=== PATIENT | female | born 1950 | race Caucasian/White ===

== ENCOUNTER 2017-10-05 11:39 | Day surgery (SDC) | payer OTHER ==
[~2017-10-05] VITALS: Ht 167.6 cm; Wt 63.1 kg
[~2017-10-05 11:39] MED LIST: ALBIPROI; ALBIPROI INH; ALBU3IS INH; ALBU90OI INH; ALBU90OI61 INH; ASPI81CH PO; ATEN25; ATEN25 PO; ATEN50; ATEN50 PO; AZIT100SU PO; AZIT250 PO; BACL10 PO; BELPTAB; BENZ100A; BENZ100A PO; BUSP5 PO; CALCA500CH PO; CALCAVITDA PO; CALCIUM 1500 MG PO; CEFP200 PO; CHOL10002 PO; CLAR500 PO; CLARITIN10 MG PO; CLOP75; CONEST1.25; COPEGUS; CYCL10; CYCL10 PO; DOCU100 PO; DULO30 PO; DULO60 PO; Daily Multiple1 EACH PO; ESTEST.625 PO; ESTMETHS PO; ESTR.75; FAMO20 PO; FERROUS SULFATE; FEXPSEER PO; FLUC150A PO; FLUO10 PO; FLUO20; FLUO20 PO; GABA300; GABA300 PO; GABA600 PO; GUAI600T33 PO; GUAPHELA PO; HYDGUAL120; HYDGUAL120 PO; HYDHCL25 PO; HYDMOR2; HYDMOR2 PO; Ipratr-Albuterol3 ML IH; LACT10SY PO; LEVFLO500; LEVFLO500 PO; LOPE2C PO; LORA1; LORA10ER PO; MEGE40SU PO; METCAR500 PO; METPRE4DP PO; MIRT15 PO; MONT10T; MONT10T PO; MONT4 PO; MORP15ER PO; NITRSPRAY SL; Nitrostat0.4 MG SL; OMEP20ER; OMEP20ER PO; OMEP40CA12 PO; ONDA4 PO; ONDA8 PO; OXYACE7.5T PO; OXYC10ER; OXYC5; PARO30 PO; PEGASYS; POLY17UD PO; PRED10 PO; PRED20; PRED20 PO; PROACE100; PROC25S PR; PROCODE120 PO; PROM25S PR; PROMETHAZINE 12.5 MG; PROP65; PSEHYDGUAL PO; PSYL5.85P PO; Pepcid20 MG PO; Prilosec Otc20 MG PO; Promethazine12.5 M1 PO; RANI150; RANI150 PO; RXHYDGUAS PO; RXHYDMOR2 PO; RXPROCODSY PO; SALM50IP INH; STIOLTO RESPIMAT4 GM INH; SUCR1 PO; SULTRIDS PO; THEO300ER; THEO300ERA; TIOT18 INH; TRAZ100; TRAZ100 PO; TRAZ150T57 PO; TRAZ50; URSO; URSO PO; URSO300; URSO300 PO; URSODIOL 250 MG; VARE1 PO; Vistaril50 MG PO; [UNRECOGNIZED DRUG - CODE]; [UNRECOGNIZED DRUG - CODE]; [UNRECOGNIZED DRUG - OTHER]; [UNRECOGNIZED DRUG - OTHER]; [UNRECOGNIZED DRUG - REMARK]; [UNRECOGNIZED DRUG - REMARK]
[2017-10-05] MEDS ORDERED: BACL10 PO (12:23)
[2017-10-05] MEDS ORDERED: PROM25S (12:24)
[2017-10-05] MEDS ORDERED: PROLIA60 MG/1 ML INJ (12:24)
[2017-10-05] MEDS ORDERED: ALBU3IS (12:24)
== END 2017-10-05 14:25 | disposition home or self-care (01) ==
LOC: ORSCSDS 11:39
PROVIDERS: Podiatrist
PROC: 0Y6Y0Z0 Detachment at Left 5th Toe, Complete, Open Approach (ICD-10-PCS; principal; 2017-10-05 13:00)
DX: M21.622 Bunionette of left foot (principal); I48.0 Paroxysmal atrial fibrillation; J44.9 Chronic obstructive pulmonary disease, unspecified; I50.30 Unspecified diastolic (congestive) heart failure; Z99.81 Dependence on supplemental oxygen; F17.210 Nicotine dependence, cigarettes, uncomplicated; G47.33 Obstructive sleep apnea (adult) (pediatric); Z79.82 Long term (current) use of aspirin; Z79.899 Other long term (current) drug therapy
CPT/HCPCS: J2250; J3010; J7120

== ENCOUNTER 2018-01-28 05:46 | Day surgery (SDC) | payer OTHER ==
[~2018-01-28] VITALS: Ht 165.1 cm; Wt 63.0 kg
[~2018-01-28 05:46] MED LIST changes: +ALBU3IS; +PROLIA60 MG/1 ML INJ; +PROM25S
== END 2018-01-28 11:40 | disposition home or self-care (01) ==
LOC: MHTC 05:46
PROC: B211YZZ Fluoroscopy of Multiple Coronary Arteries using Other Contrast (ICD-10-PCS; principal; 2018-01-28)
DX: I35.0 Nonrheumatic aortic (valve) stenosis (principal); Z95.2 Presence of prosthetic heart valve; F17.210 Nicotine dependence, cigarettes, uncomplicated; J44.9 Chronic obstructive pulmonary disease, unspecified; G47.30 Sleep apnea, unspecified
CPT/HCPCS: 93454; 99152; C1769; C1894; J1644; J2250; J3010; J7030; Q9967

== ENCOUNTER 2018-04-23 17:09 | Observation (INO) | payer OTHER ==
[~2018-04-23] VITALS: Ht 167.6 cm; Wt 60.7 kg
[2018-04-23 18:03] LABS: BASOPHILS ABSOLUTE AUTO 0.05 K/mm3 (0.00-0.23); BASOPHILS PERCENT AUTO 1 % (0-2); EOSINOPHILS ABSOLUTE AUTO 0.17 K/mm3 (0.00-0.68); EOSINOPHILS PERCENT AUTO 2 % (0-6); Hematocrit 31.5 % (33.0-51.0); Hemoglobin 10.6 g/dL (11.5-16.0); IMMATURE GRAN ABSOLUTE AUTO 0.04 K/mm3 (0.00-0.10); IMMATURE GRAN PERCENT AUTO 1 % (0-1); LYMPHOCYTES ABSOLUTE AUTO 0.75 K/mm3 (0.84-5.20); LYMPHOCYTES PERCENT AUTO 9 % (21-46); MONOCYTES ABSOLUTE AUTO 0.18 K/mm3 (0.16-1.47); MONOCYTES PERCENT AUTO 2 % (4-13); Mean Corpuscular HGB 22.6 pg (26.0-34.0); Mean Corpuscular HGB Conc 33.7 g/dL (31.5-36.5); Mean Corpuscular Volume 67 fL (80-100); Mean Platelet Volume 10.8 fL (9.1-12.4); NEUTROPHILS ABSOLUTE AUTO 6.78 K/mm3 (1.96-9.15); NEUTROPHILS PERCENT AUTO 85 % (41-73); Platelet Count 232 K/mm3 (150-400); RDW Coefficient Variation 14.6 % (11.7-14.2); RDW Standard Deviation 33.9 fL (35.1-46.3); Red Blood Cell Count 4.69 M/mm3 (3.80-5.20); White Blood Cell Count 7.97 K/mm3 (4.00-11.30)
[2018-04-23 18:15] LABS: Alanine Aminotransfer (ALT/SGP 20 U/L (12-78); Albumin, Blood 3.7 g/dL (3.4-5.0); Alk Phos 98 U/L (50-136); Anion Gap 7 mmol/L (6-16); Aspartate Aminotrans (AST/SGOT 23 U/L (12-37); Bilirubin, Total 1.1 mg/dL (0.1-1.0); Blood Urea Nitrogen 6 mg/dL (8-24); CO2, Blood 26 mmol/L (21-32); Chloride, Blood 97 mmol/L (98-108); Creatinine, Blood 0.46 mg/dL (0.40-1.00); Globulin, Blood 3.8 g/dL (2.2-4.0); Glomerular Filtration Rate >60 (60-); Glucose, Blood 109 mg/dL (70-99); Potassium, Blood 3.7 mmol/L (3.5-5.5); Sodium, Blood 130 mmol/L (136-145); Total Protein, Blood 7.5 g/dL (6.4-8.2); Troponin I 0.087 ng/mL (0.000-0.040)
[2018-04-23 20:42] LABS: International Normalized Ratio 1.08; Prothrombin Time Results 11.1 Sec (9.7-11.5)
[2018-04-24 06:17] LABS: Hematocrit 30.4 % (33.0-51.0); Hemoglobin 10.2 g/dL (11.5-16.0); Mean Corpuscular HGB 22.6 pg (26.0-34.0); Mean Corpuscular HGB Conc 33.6 g/dL (31.5-36.5); Mean Corpuscular Volume 67 fL (80-100); Mean Platelet Volume 10.6 fL (9.1-12.4); Platelet Count 205 K/mm3 (150-400); RDW Coefficient Variation 14.6 % (11.7-14.2); Red Blood Cell Count 4.52 M/mm3 (3.80-5.20); White Blood Cell Count 6.67 K/mm3 (4.00-11.30)
[2018-04-24 06:34] LABS: Anion Gap 7 mmol/L (6-16); Blood Urea Nitrogen 4 mg/dL (8-24); Bun/Creatinine Ratio 10.2 (12.0-20.0); CO2, Blood 28 mmol/L (21-32); Calcium, Blood 7.8 mg/dL (8.5-10.1); Chloride, Blood 99 mmol/L (98-108); Creatinine, Blood 0.39 mg/dL (0.40-1.00); Glomerular Filtration Rate >60 (60-); Glucose, Blood 107 mg/dL (70-99); Potassium, Blood 3.4 mmol/L (3.5-5.5); Sodium, Blood 134 mmol/L (136-145)
== END 2018-04-24 13:12 | disposition home or self-care (01) ==
LOC: ER 17:09 → PCU 19:22
PROVIDERS: Emergency Medicine; Nurse Practitioner Acute Care
DX: R07.9 Chest pain, unspecified (principal); I48.0 Paroxysmal atrial fibrillation; I35.0 Nonrheumatic aortic (valve) stenosis; K21.9 Gastro-esophageal reflux disease without esophagitis; I25.2 Old myocardial infarction; R79.89 Other specified abnormal findings of blood chemistry; J43.9 Emphysema, unspecified; M79.7 Fibromyalgia; G89.29 Other chronic pain; M54.9 Dorsalgia, unspecified; I27.20 Pulmonary hypertension, unspecified; M81.0 Age-related osteoporosis without current pathological fracture; J30.9 Allergic rhinitis, unspecified; D50.9 Iron deficiency anemia, unspecified; F32.9 Major depressive disorder, single episode, unspecified; F41.9 Anxiety disorder, unspecified; F17.210 Nicotine dependence, cigarettes, uncomplicated; Z79.82 Long term (current) use of aspirin; Z79.899 Other long term (current) drug therapy; Z99.81 Dependence on supplemental oxygen; Z86.19 Personal history of other infectious and parasitic diseases; Z88.0 Allergy status to penicillin; Z95.2 Presence of prosthetic heart valve; Z88.5 Allergy status to narcotic agent; Z88.8 Allergy status to other drugs, medicaments and biological substances; Z91.041 Radiographic dye allergy status
CPT/HCPCS: 36415; 71046; 80048; 80053; 84484; 85025; 85027; 85610; 93005; 93010; 94760; 96360; 99285-25; J1650; J7030

== ENCOUNTER → 2018-06-25 | Outpatient (CLI) | payer OTHER | END | disposition home or self-care (01) | LOC: LAB SHORT 12:04 → PLD 12:04 | DX: R23.4 Changes in skin texture (principal); M79.5 Residual foreign body in soft tissue | CPT/HCPCS: 88305; 88312 ==

== ENCOUNTER 2018-09-09 12:53 | Day surgery (SDC) | payer OTHER ==
[~2018-09-09] VITALS: Ht 165.1 cm; Wt 57.5 kg
[~2018-09-09 12:53] MED LIST changes: +Aspirin EC81 MG PO; +BACLOFEN5 MG PO; +CALCIUM + D3 E1 EACH PO; +CLOP75 PO; +COMBIVENT RESPIM4 GM INH; +Colace100 MG PO; +ONDA4ODT MM; +Omeprazole20 M1 PO; +Verotin-Gr Cap1 EACH PO
== END 2018-09-09 16:29 | disposition home or self-care (01) ==
LOC: ORSCSDS 12:53
PROVIDERS: Internal Medicine Gastroenterology
PROC: 0DB58ZX Excision of Esophagus, Via Natural or Artificial Opening Endoscopic, Diagnostic (ICD-10-PCS; principal; 2018-09-09 14:30)
PROC: 0DB68ZX Excision of Stomach, Via Natural or Artificial Opening Endoscopic, Diagnostic (ICD-10-PCS; principal; 2018-09-09 14:30)
DX: K22.70 Barrett's esophagus without dysplasia (principal); I10 Essential (primary) hypertension; K21.0 Gastro-esophageal reflux disease with esophagitis; J44.9 Chronic obstructive pulmonary disease, unspecified; F41.8 Other specified anxiety disorders; F17.210 Nicotine dependence, cigarettes, uncomplicated; Z79.01 Long term (current) use of anticoagulants; Z79.82 Long term (current) use of aspirin; Z79.899 Other long term (current) drug therapy
CPT/HCPCS: 88305; 88342; J3010; J7120

== ENCOUNTER 2018-10-25 10:52 | Emergency (ER) | payer OTHER ==
[~2018-10-25] VITALS: Ht 165.1 cm; Wt 56.7 kg
[2018-10-25] MEDS ORDERED: KETO10 PO (11:08)
== END 2018-10-25 11:11 | disposition home or self-care (01) ==
LOC: ER 10:52
DX: Z76.0 Encounter for issue of repeat prescription (principal); K62.3 Rectal prolapse; M19.019 Primary osteoarthritis, unspecified shoulder; J44.9 Chronic obstructive pulmonary disease, unspecified; F17.200 Nicotine dependence, unspecified, uncomplicated; Z88.0 Allergy status to penicillin; Z88.5 Allergy status to narcotic agent; Z88.1 Allergy status to other antibiotic agents; Z88.8 Allergy status to other drugs, medicaments and biological substances; Z79.899 Other long term (current) drug therapy; Z79.82 Long term (current) use of aspirin; Z79.02 Long term (current) use of antithrombotics/antiplatelets; Z99.81 Dependence on supplemental oxygen
CPT/HCPCS: 99281

== ENCOUNTER 2019-01-24 18:52 | Inpatient (IN) | payer OTHER ==
[~2019-01-24] VITALS: Ht 167.6 cm; Wt 63.4 kg
[~2019-01-24 18:52] MED LIST changes: -BACLOFEN5 MG PO; -CALCIUM + D3 E1 EACH PO; -Colace100 MG PO; +KETO10 PO; -Verotin-Gr Cap1 EACH PO
[2019-01-24 19:33] LABS: BASOPHILS ABSOLUTE AUTO 0.11 K/mm3 (0.00-0.23); BASOPHILS PERCENT AUTO 1 % (0-2); EOSINOPHILS ABSOLUTE AUTO 0.41 K/mm3 (0.00-0.68); EOSINOPHILS PERCENT AUTO 3 % (0-6); Hematocrit 34.3 % (33.0-51.0); Hemoglobin 11.4 g/dL (11.5-16.0); IMMATURE GRAN ABSOLUTE AUTO 0.06 K/mm3 (0.00-0.10); IMMATURE GRAN PERCENT AUTO 1 % (0-1); LYMPHOCYTES ABSOLUTE AUTO 2.33 K/mm3 (0.84-5.20); LYMPHOCYTES PERCENT AUTO 18 % (21-46); MONOCYTES ABSOLUTE AUTO 1.17 K/mm3 (0.16-1.47); MONOCYTES PERCENT AUTO 9 % (4-13); Mean Corpuscular HGB Conc 33.2 g/dL (31.5-36.5); Mean Corpuscular Volume 69 fL (80-100); Mean Platelet Volume 10.6 fL (9.1-12.4); NEUTROPHILS ABSOLUTE AUTO 8.75 K/mm3 (1.96-9.15); NEUTROPHILS PERCENT AUTO 68 % (41-73); NRBC ABSOLUTE 0.02 K/mm3 (0.00-0.02); NRBC Auto 0.2 /100 WBC (0.0-0.2); Platelet Count 272 K/mm3 (150-400); RDW Coefficient Variation 14.8 % (11.7-14.2); RDW Standard Deviation 35.3 fL (35.1-46.3); Red Blood Cell Count 4.95 M/mm3 (3.80-5.20); White Blood Cell Count 12.83 K/mm3 (4.00-11.30)
[2019-01-24 19:58] LABS: Alanine Aminotransfer (ALT/SGP 30 U/L (12-78); Albumin/Globulin Ratio 1.1 (0.8-1.8); Alk Phos 117 U/L (50-136); Anion Gap 6 mmol/L (6-16); Aspartate Aminotrans (AST/SGOT 39 U/L (12-37); Bilirubin, Total 0.6 mg/dL (0.1-1.0); Blood Urea Nitrogen 8 mg/dL (8-24); Bun/Creatinine Ratio 13.7 (12.0-20.0); CO2, Blood 26 mmol/L (21-32); Chloride, Blood 102 mmol/L (98-108); Creatinine, Blood 0.59 mg/dL (0.40-1.00); Globulin, Blood 3.6 g/dL (2.2-4.0); Glomerular Filtration Rate >60 (60-); Glucose, Blood 113 mg/dL (70-99); Potassium, Blood 4.3 mmol/L (3.5-5.5); Sodium, Blood 134 mmol/L (136-145); Total Protein, Blood 7.6 g/dL (6.4-8.2); Troponin I <0.015 ng/mL (0.000-0.040)
[2019-01-24] MEDS ORDERED: GABA600 PO (20:10)
[2019-01-24] MEDS ORDERED: Loratadine10 MG PO (20:11)
[2019-01-24] MEDS ORDERED: Verotin-Gr Cap1 EACH PO (20:28)
[2019-01-24] MEDS ORDERED: Colace100 MG PO (20:28)
[2019-01-24] MEDS ORDERED: Calcium + Vita1 EACH PO (20:29)
--- NOTE | 2019-01-24 22:50 | NUR ---
RECEIVED HAND OFF FROM Steffen EUGENE RN USING SBAR. TRANSPORTED TO ROOM PCU1 VIA STRETCHER. TRANSFERED SELF TO BED WITH STANDBY ASSIST. AAO X3, VEGA, FOLLOWS ALL COMMANDS. ORIENTED TO ROOM, CALL SYSTEM, AND POC, VOICES UNDERSTANDING. 18G SL PIV TO RIGHT AC IS PATENT, FLUSHING WITH EASE. 20G TO LEFT FA INFUSING CARDIZEM AT 10MG/HR IS PATENT, FLUSHING WITH EASE. RESPIRATIONS EVEN AND UNLABORED ON ROOM AIR. LUNG SOUNDS COARSE BILATERALLY. ABDOMEN SOFT AND NONDISTENDED. BOWEL SOUNDS PRESENT IN ALL QUADS. CONTINENT OF BOWEL AND BLADDER, WILL BE USING BSC NEEDED. RATES CURRENT PAIN AT 6/10 WITH HER NORMAL AT 5/10. DENIES FURTHER NEEDS OR WANTS AT THIS TIME. SAFETY MEASURES IN PLACE. ADMISSION ASSESSMENT IN PROGRESS. WILL CONTINUE TO MONITOR.
[2019-01-24] MEDS ORDERED: PROLIA60 MG/1 ML (23:08)
--- NOTE | 2019-01-25 05:33 | NUR ---
SHIFT SUMMARY LYING IN LOW FOWLERFS WITH EYES CLOSED. RESTED WELL, CARDIZEM DRIP STILL IN PROGRESS AT 15ML/HR, VSS, NAD NOTED. DENIES FURTHER NEEDS OR WANTS AT THIS TIME. SAFETY MEASURES IN PLACE. WILL GIVE HAND OFF TO ONCOMING SHIFT USING SBAR.
--- NOTE | 2019-01-25 18:45 | NUR ---
SHIFT SUMMARY PT RESTING IN BED THROUGHOUT THE DAY. VSS EXCEPT FOR TACHYCARDIA WITH AFIB. PT HAS BEEN AFIB ALL DAY, RATE 120s-150s, CARDIZEM GTT AT 15 ML/HR. CARDIZEM GTT DISCONTINUED AT 183, DIGOXIN IV BOLUS GIVEN. PT UP TO BEDSIDE COMMODE WITH STANDBY ASSIST. LUNG SOUNDS CLEAR, DIMINISHED BASES. DYSPNEA ON EXERTION. IRREGULAR HEART TONES. C/O 7/10 SUBSTERNAL PAIN, MEDICATED WITH PRN PAIN MEDS. NUMBNESS TO BILATERAL FEET. AT BEDSIDE OFF AND ON TODAY. WILL CONTINUE TO MONITOR.
--- NOTE | 2019-01-25 19:49 | NUR ---
ASSUMED CARE PT. ALERT AND ORIENTED, RESTING COMFORTABLY IN BED AT THIS TIME. DENIES ANY PAIN. PT. VSS AT THIS TIME HOWEVER HR REMAINS 150 BPM POST INITIAL DIG ADMIN. PT. SITTING UP IN BED WATCHING TV. CALL LIGHT IN REACH.
[2019-01-26 04:14] LABS: Hematocrit 34.9 % (33.0-51.0); Hemoglobin 11.2 g/dL (11.5-16.0); Mean Corpuscular HGB 22.3 pg (26.0-34.0); Mean Corpuscular HGB Conc 32.1 g/dL (31.5-36.5); Mean Corpuscular Volume 70 fL (80-100); Mean Platelet Volume 10.9 fL (9.1-12.4); NRBC ABSOLUTE 0.02 K/mm3 (0.00-0.02); NRBC Auto 0.2 /100 WBC (0.0-0.2); Platelet Count 257 K/mm3 (150-400); RDW Coefficient Variation 14.9 % (11.7-14.2); RDW Standard Deviation 35.8 fL (35.1-46.3); Red Blood Cell Count 5.02 M/mm3 (3.80-5.20)
[2019-01-26 04:37] LABS: Albumin, Blood 3.5 g/dL (3.4-5.0); Anion Gap 6 mmol/L (6-16); Blood Urea Nitrogen 11 mg/dL (8-24); Bun/Creatinine Ratio 22.3 (12.0-20.0); CO2, Blood 25 mmol/L (21-32); Calcium, Blood 8.7 mg/dL (8.5-10.1); Chloride, Blood 104 mmol/L (98-108); Creatinine, Blood 0.49 mg/dL (0.40-1.00); Glomerular Filtration Rate >60 (60-); Glucose, Blood 113 mg/dL (70-99); Potassium, Blood 4.5 mmol/L (3.5-5.5); Sodium, Blood 135 mmol/L (136-145)
[2019-01-26 04:44] LABS: Digoxin (Lanoxin) 1.39 ug/mL (0.80-2.00)
--- NOTE | 2019-01-26 05:47 | NUR ---
SHIFT SUMMARY PT. RESTING COMFORTABLY T/O SHIFT. PT. HR BETWEEN 115-140S DIG ADMIN TWICE THIS SHIFT. PT. DENIES CHEST PAIN OR PRESSURE T/O SHIFT. UP TO BEDSIDE COMMODE WITH STAND BY ASSIST. CALL LIGHT IN REACH. REPORT TO ONCOMING RN.
--- NOTE | 2019-01-26 17:56 | NUR ---
1753 PT C/O CP 05/29. BP 124/92. AFIB RATE 150-160s PER FLIGHT TEACHER. MEDICATED WITH 1 NTG SL. 1801 CP 03/29 AFTER 1 NTG. BP 130/84. 1803 CP /. 2ND NTG GIVEN. 1808 CP CONTINUES AT 03/29. AFIB RATE 160-170s ON TELEMETRY. BP 114/74
--- NOTE | 2019-01-26 18:10 | NUR ---
CALLED RE: HEART RATE AND CP. ORDERS RECEIVED. CARDIZEM GTT STARTED AT 10 ML/HR. EKG SHOWN TO DR. LANE, NEW ORDERS RECEIVED. PT STATES CP 02/26. WILL CONTINUE TO MONITOR AND REPORT OFF TO POT ROOM SUPERVISOR RN.
--- NOTE | 2019-01-26 19:36 | NUR ---
SHIFT SUMMARY PT RESTING IN BED THROUGHOUT THE DAY. VSS EXCEPT FOR ELEVATED HEART RATE, AFIB RANGING FROM 130s-160s. ALERT AND ORIENTED X3. LUNG SOUNDS INSPIRATORY WHEEZES TO LEFT UPPER LOBE, CLEAR THROUGH OTHER LUNG MERCADO. UP TO BEDSIDE COMMODE WITH STANDBY ASSIST. AROUND 1750, PT C/O 10/10 CHEST PAIN, MEDICATED WITH PRN NTG SL. PAIN DECREASED TO 8/10. HEART RATE CONTINUES TO CLIMB SLIGHTLY UP TO 160-170s. CARDIZEM GTT STARTED, RUNNING AT 15 ML/HR AT END OF SHIFT. WILL CONTINUE TO MONITOR.
[2019-01-27 00:59] LABS: BASOPHILS ABSOLUTE AUTO 0.12 K/mm3 (0.00-0.23); BASOPHILS PERCENT AUTO 1 % (0-2); EOSINOPHILS ABSOLUTE AUTO 0.12 K/mm3 (0.00-0.68); EOSINOPHILS PERCENT AUTO 1 % (0-6); Hematocrit 33.2 % (33.0-51.0); Hemoglobin 10.9 g/dL (11.5-16.0); IMMATURE GRAN ABSOLUTE AUTO 0.05 K/mm3 (0.00-0.10); IMMATURE GRAN PERCENT AUTO 1 % (0-1); LYMPHOCYTES PERCENT AUTO 22 % (21-46); MONOCYTES ABSOLUTE AUTO 0.89 K/mm3 (0.16-1.47); MONOCYTES PERCENT AUTO 8 % (4-13); Mean Corpuscular HGB 22.7 pg (26.0-34.0); Mean Corpuscular HGB Conc 32.8 g/dL (31.5-36.5); Mean Corpuscular Volume 69 fL (80-100); Mean Platelet Volume 10.5 fL (9.1-12.4); NEUTROPHILS ABSOLUTE AUTO 7.21 K/mm3 (1.96-9.15); NEUTROPHILS PERCENT AUTO 68 % (41-73); NRBC ABSOLUTE 0.03 K/mm3 (0.00-0.02); NRBC Auto 0.3 /100 WBC (0.0-0.2); Platelet Count 219 K/mm3 (150-400); RDW Coefficient Variation 14.6 % (11.7-14.2); RDW Standard Deviation 34.8 fL (35.1-46.3); White Blood Cell Count 10.69 K/mm3 (4.00-11.30)
[2019-01-27 01:21] LABS: Anion Gap 6 mmol/L (6-16); Blood Urea Nitrogen 12 mg/dL (8-24); Bun/Creatinine Ratio 27.8 (12.0-20.0); CO2, Blood 27 mmol/L (21-32); Calcium, Blood 8.5 mg/dL (8.5-10.1); Chloride, Blood 101 mmol/L (98-108); Creatinine, Blood 0.43 mg/dL (0.40-1.00); Glomerular Filtration Rate >60 (60-); Glucose, Blood 120 mg/dL (70-99); Magnesium, Blood 2.2 mg/dL (1.6-2.4); Potassium, Blood 4.1 mmol/L (3.5-5.5); Sodium, Blood 134 mmol/L (136-145)
[2019-01-27 01:28] LABS: Digoxin (Lanoxin) 1.05 ug/mL (0.80-2.00)
--- NOTE | 2019-01-27 06:04 | NUR ---
SHIFT SUMMARY PT HAS REMAINED AOX4 THROUGHOUT SHIFT. PLEASANT AND COOPERATIVE WITH CARE. CARDIAC RHYTHM HAS REMAINED IN ATRIAL FIBRILATION THROUGHOUT THE NIGHT WITH RATE RANGING FROM 140-160'S, CARDIZEM DRIP HAS REMAINED INFUSING @ 15 MG/HR THROUGHOUT THE NIGHT. ALL OTHER VSS. HEPARIN DRIP INFUSING PER ORDERS AND TITRATED PER PHARMACY. PT REPORTS SLIGHT PAIN IN R AND L CHEST AT START OF SHIFT WITH RATE OF 6/10 THAT DECREASED TO 3/10 WITH PO DILAUDID. PT REPORTS THAT THIS PAIN DOES NOT RADIATE TO BACK, ARM OR JAW. PT CONTINUES TO AMBULATE WITH STANDBY ASSIST TO BEDSIDE COMMODE WITH MINIMAL DIFFICULTY. NO OTHER CHANGES FROM INITIAL ASSESSMENT. WILL CONTINUE TO MONITOR AND REPORT TO ONCOMING SHIFT RN. BED IN LOW POSITION, CALL LIGHT IN REACH.
--- NOTE | 2019-01-27 11:27 | NUR ---
Echocardiogram completed.
--- NOTE | 2019-01-27 16:33 | NUR ---
SHIFT SUMMARY PT RESTING IN BED THROUGHOUT THE DAY. VSS. ALERT AND ORIENTED X3. LUNG SOUNDS EXPIRATORY WHEEZES TO RIGHT SIDE, LEFT SIDE CLEAR. AFIB RATE 120s-170s THROUGHOUT THE DAY. CARDIAC MEDICATION ADJUSTMENTS BEING MADE. CARDIZEM GTT AND HEPARIN GTT DC'D PER DR. ANTONY. HEART RATE IS AVERAGING 130s THIS AFTERNOON. PT UP TO BEDSIDE COMMODE WITH STANDBY ASSIST. C/O BACK PAIN, MEDICATED WITH PRN PAIN MEDS. C/O CHRONIC NUMBNESS TO BILATERAL FEET. WILL CONTINUE TO MONITOR.
--- NOTE | 2019-01-28 06:24 | NUR ---
SHIFT SUMMARY PT HAS REMAINED AOX4 THROUGHOUT SHIFT. PLEASANT AND COOPERATIVE WITH CARE. CARDIAC RHYTHM REMAINS IN ATRIAL FIBRILLATION WITH RATE RANGING FROM 140-160 THROUGHOUT THE NIGHT. RATE DOES NOT CHANGE WITH AMBULATION. ONE EPISODE OF HR IN THE 190'S LASTING 5 MINUTES WHERE PT REPORTED FEELING "LIKE SHE WAS HAVING A HEAT FLASH". PT DENIES CHEST PAIN AND DYSPNEA THROUGHOUT THE NIGHT. ALL OTHER VSS. O2 SATS HAVE REMAINED >90% ON 2.5L VIA NASAL CANNULA WHICH IS BASELINE O2. PT AMBULATING TO RESTROOM THROUGHOUT THE NIGHT WITH MINIMAL DIFFICULTY. PT DOES REPORT SOME DIZZINESS OCCASIONALLY WITH SITTING UP QUICKLY THAT DISSIPATES WITHIN 15-30 SECONDS. NO OTHER CHANGES NOTED FROM INITIAL ASSESSMENT. WILL CONTINUE TO MONITOR AND REPORT TO ONCOMING SHIFT RN. BED IN LOW POSITION, CALL LIGHT IN REACH.
--- NOTE | 2019-01-28 08:01 | NUR ---
AM NOTE. ASSUMED CARE OF PT APROX 0700, PT IS A&Ox4 AND SBA IN THE ROOM. PT WAS ADMITTED FOR AFIB RVR, PT IS CURRENTLY STILL IN AFIB IN THE 150'S-170'S, PROVIDER IS AWARE AND MEDICATIONS ARE BEING MANAGED BY SPINNING LATHE OPERATOR AUTOMATIC AT THIS TIME. TELE INTACT, AFIB RVR, PT'S BP 132/90. NO EDEMA NOTED ON ASSESSMENT. L/S CLEAR IN THE UPPER LOBES AND DIM T/O. PT IS ON HER HOME DOSE OF O2 AT 2.5 L NC. RR IS 20, EVEN AND UNLABORED AT THIS TIME. BT PRESENT AND HYPERACTIVE, ABD IS SOFT AND NONTENDER TO PALP. IS AT THE BEDSIDE, UPDATE ON PLAN OF CARE PROVIDED TO PT AND , ALL QUESTIONS WERE ANSWERED TO THIER SATISFACTION. CALL LIGHT IN REACH, BED IS LOCKED AND LOW WILL CONTINUE TO MONITOR.
--- NOTE | 2019-01-28 18:35 | NUR ---
SHIFT SUMMARY. NO ACUTE CHANGES NOTED THIS SHIFT. PT'S HR REMAINED IN THE 140'S-150'S T/O SHIFT PT HAS NOT BEEN SYMPTOMATIC. PT'S OTHER VS HAVE BEEN STABLE. PT DENIES ANY CHEST PAIN/PRESSURE, SOB OR N/V. BOWEL CARE HAS BEEN STARTED ON THIS PT PER HER REQUEST, PT STATES THAT SHE FEELS CONSTIPATED AND SHE IS TAKING NARCOTIC PAIN MEDICATIONS ON A REGULAR BASIS. CALL LIGHT IN REACH, BED IS LOCKED AND LOW WILL CONTINUE TO MONITOR UNTIL REPORT IS GIVEN TO ONCOMING RN.
[2019-01-29 04:29] LABS: Anion Gap 9 mmol/L (6-16); Blood Urea Nitrogen 18 mg/dL (8-24); Bun/Creatinine Ratio 33.7 (12.0-20.0); CO2, Blood 23 mmol/L (21-32); Chloride, Blood 94 mmol/L (98-108); Creatinine, Blood 0.53 mg/dL (0.40-1.00); Glomerular Filtration Rate >60 (60-); Glucose, Blood 104 mg/dL (70-99); Potassium, Blood 4.9 mmol/L (3.5-5.5); Sodium, Blood 126 mmol/L (136-145)
[2019-01-29 04:36] LABS: Digoxin (Lanoxin) 0.98 ug/mL (0.80-2.00)
--- NOTE | 2019-01-29 05:25 | NUR ---
SHIFT SUMMARY PT HAS REMAINED AOX4 THROUGHOUT SHIFT. PLEASANT AND COOPERATIVE WITH CARE. CARDIAC RHYTHM REMAINS IN ATRIAL FIBRILLATION WITH A HEART RATE REMAINING IN THE 140-150'S AND DOES NOT FLUCTUATE WITH AMBULATION OR REST. PT DENIES CHEST PAIN AND DYSPNEA. PT CONTINUES TO AMBULATE WITH STANDBY ASSIST TO RESTROOM. PT REPORTING DIFFICULTY HAVING BOWEL MOVEMENT THAT SHE REPORTS WILL "HAPPEN EVERY SO OFTEN AT HOME". BOWEL CARE INCREASED YESTERDAY AND SUPPOSITORY GIVEN LAST NIGHT WITH LITTLE RESULT. NO OTHER CHANGES NOTED FROM INITIAL ASSESSMENT. WILL CONTINUE TO MONITOR AND REPORT TO ONCOMING SHIFT RN. BED IN LOW POSITION, CALL LIGHT IN REACH.
--- NOTE | 2019-01-29 17:38 | NUR ---
SHIFT SUMMARY PT RESTING IN BED THROUGHOUT THE DAY. ALERT AND ORIENTED X3. BLADDER SCAN COMPLETED, SCAN >896. STRAIGHT CATH COMPLETED, 1400 ML URINE OUT. HYPOACTIVE BOWEL SOUNDS NOTED, ABDOMEN FIRM ON PALPATION. PT HAS NOT HAD A BM FOR SEVERAL DAYS, FLEET ENEMA GIVEN AFTER STRAIGHT CATH, PT HAD EXTRA LARGE BM AFTER ENEMA. PT IS HAVING SOME HEART BURN AND ABDOMINAL PAIN AFTER BM. TUMS ORDERED PRN. VSS EXCEPT FOR AFIB WITH HEART RATE AVERAGING 150s THIS AM. AMIODARONE BOLUS AND GTT STARTED AT 1120, HEART RATE AVERAGING 130s AFTER BOLUS AND GTT. 2ND BOLUS STARTED AT 1638, MAINTENANCE GTT STARTED AFTER BOLUS. HEART RATE AROUND 126 AT 1745. LUNG SOUNDS CLEAR. C/O SUBSTERNAL / BACK PAIN, MEDICATED WITH PRN PAIN MEDS. AT BEDSIDE FOR PARTS OF THE DAY. WILL CONTINUE TO MONITOR.
[2019-01-30 04:46] LABS: Anion Gap 9 mmol/L (6-16); Blood Urea Nitrogen 28 mg/dL (8-24); Bun/Creatinine Ratio 49.5 (12.0-20.0); CO2, Blood 24 mmol/L (21-32); Calcium, Blood 8.7 mg/dL (8.5-10.1); Chloride, Blood 88 mmol/L (98-108); Creatinine, Blood 0.57 mg/dL (0.40-1.00); Glomerular Filtration Rate >60 (60-); Glucose, Blood 81 mg/dL (70-99); Potassium, Blood 5.5 mmol/L (3.5-5.5); Sodium, Blood 121 mmol/L (136-145)
--- NOTE | 2019-01-30 07:41 | NUR ---
END OF SHIFT SUMMARY ASSUMED CARE OF PT @1900. PT ALERT AND ORIENTED, TALKING WITH STAFF APPROPRIATELY. AMIODORONE DRIP INFUSING @16.6 ML/HR, THIS HAS CONTINUED UNTIL THE END IF THE SHIFT WHEN IT WAS DC'D AND PO AMIODORONE STARTED. VSS T/O SHIFT, HR HAS REMAINED IN 110'S AFIB. PT HAS HAD SOME CP BUT THIS HAS BEEN ATTRIBUTED TO THE TACHYCARDIC NATURE OF HER ADMISSION PER MD NOTES, PT MEDICATED PER EMAR. PT HAS VOIDED VERY LITTLE THIS SHIFT, A TOTAL OF LESS THAN 300MLS. BLADDER SCAN COMPLETED BUT THEN PATIENT VOIDED. PT STATED THINKING SHE COULD VOID AGAIN BUT ULTIMATELY WAS UNSUCCESFUL. THIS HAS BEEN RELAYEDTO THE ONCOMING RN ESME. PT HAS RESTED FOR MAJORITY OF SHIFT. LUNGS HAVE REMAINED CLEAR T/O WITH SOME NONPRODUCTIVE COUGHING. EKG COMPLETED 0500, SHOWS 130'S, APPEARS TO STILL BE AFIB DESPITE EKG AUTOMATIC READING OF SIN TACH. CALL LIGHT WITHIN REACH, REPORT GIVEN TO ONCOMING NURSE ESME.
--- NOTE | 2019-01-30 11:25 | NUR ---
RECEIVED REPORT AT SHIFT CHANGE AND ASSUMED CARE OF PATIENT. SHE WANTED HER O2 OFF WHEN SHE SAT UP FOR BREAKFAST, PT STATED, "I ONLY USE O2 AT NIGHT." WILL KEEP PT OFF O2 AND SPOT CHECK O2 SAT. PT TOLERATING WELL. PT HAD 600+ ML URINE IN HER BLADDER THIS AM, BUT IS NOT ABLE TO COMPLETELY EMPTY HER BLADDER WHEN VOIDING. ENCOURAGING PATIENT TO SIT AND VOID, SPOKE WITH DR. PIEDRA REGARDING THIS ISSUE, HE WOULD LIKE TO ENCOURAGE PATIENT TO VOID INDEPENDENTLY TO AVOID CATHETERIZATION. IF PATIENT HAS >600 ML OF URINE AFTER VOIDING, STRAIGHT CATH. WILL CONTINUE TO MONITOR, POC IS FOR PATIENT TO BE NPO AT MIDNIGHT FOR CARDIOVERSION TOMORROW. BED IN LOW POSITION, CALL LIGHT WITHIN EASY REACH.
--- NOTE | 2019-01-30 18:45 | NUR ---
PT HAD A GOOD DAY TODAY, THIS MORNING SHE WAS EXCITED TO GO HOME TODAY; HOWEVER, DR ANTONY POC IS THAT PATIENT WILL BE NPO AT MIDNIGHT AND HAVE CARDIOVERSION TOMORROW. PT HR DID HAVE A SHORT PERIOD THAT IT DROPPED INTO THE 100'S FOR A COUPLE OF HOURS, BUT IT DID GO BACK UP AND HAS CONTINUED IN THE 130-140'S. PT OFF OF O2 MOST OF THE DAY, SHE STATES THAT SHE USES 2.5 LPM NC AT [facility]. OXYGEN DEMANDS INCREASED WHEN PATIENT WAS UP TO BATHROOM, STARTED BACK ON 2.5 LPM VIA NC, O2 SAT HAS CONTINUED >95%. PT HAS BEEN ABLE TO VOID THROUGHOUT THE DAY. WILL CONTINUE TO MONITOR. DR. LANE ORDERED A 1000 ML FLUID RESTRICTION, ENTERED ORDER AND HAVE LIMITED FLUIDS TODAY. WILL CONTINUE TO MONITOR AND GIVE REPORT TO NOC RN.
--- NOTE | 2019-01-31 02:38 | NUR ---
PATIENT SODIUM IS 121, MD LONGORIA NOTIFIED, NO ODERS RECIEVED, PATIENT ON 1000ML/DAY FLUID RESTRICT.
--- NOTE | 2019-01-31 04:28 | NUR ---
PATIENT ABLE TO URINATE, VSS, NO ISSUES NOTED, USING CALL LIGHT APPROPRIATLY. BED LOW AND LOCKED, CALL LIGHT WITHIN REACH.
[2019-01-31 04:31] LABS: Anion Gap 8 mmol/L (6-16); Blood Urea Nitrogen 22 mg/dL (8-24); Bun/Creatinine Ratio 50.3 (12.0-20.0); CO2, Blood 27 mmol/L (21-32); Calcium, Blood 8.6 mg/dL (8.5-10.1); Chloride, Blood 90 mmol/L (98-108); Creatinine, Blood 0.44 mg/dL (0.40-1.00); Glomerular Filtration Rate >60 (60-); Glucose, Blood 98 mg/dL (70-99); Magnesium, Blood 1.9 mg/dL (1.6-2.4); Potassium, Blood 4.8 mmol/L (3.5-5.5); Sodium, Blood 125 mmol/L (136-145)
--- NOTE | 2019-01-31 09:21 | NUR ---
RECEIVED REPORT AND ASSUMED CARE AT SHIFT CHANGE. PT IS PLEASANT AND SITTING UP WATCHING TELEVISION. PT HAS O2 RUNNING AT 2.5 LPM VIA NC, TOLERATING WELL. MEDICATIONS ADMINISTERED AND PT CONTINUES WITH NPO STATUS UNTIL PROCEDURE WITH DR. ANTONY. WILL CONTINUE TO MONITOR, BED LOCKED AND LOW, CALL LIGHT WITHIN EASY REACH.
--- NOTE | 2019-01-31 10:00 | NUR ---
REPORT RECIEVED FROM ESME VILLAVICENCIO. PT IS RESTING COMFORTABLY IN BED. DENIES NEEDS AT THIS TIME.
--- NOTE | 2019-01-31 11:30 | NUR ---
VSS. PT REPORTS 7/10 UPPER RIGHT CHEST PAIN THAT STARTED THIS AM. PT GIVEN DILAUDID FOR PAIN, WILL REASSESS.
--- NOTE | 2019-01-31 12:37 | NUR ---
PROCEDURE NOTE: 1237-ANESTHESIA AT BEDSIDE TO GIVE MEDICATIONS FOR GUCCI AND POSSIBLE CARDIOVERSION. HEART CENTER RN, JIG BORE OPERATOR, AND DR. ANTONY ALSO IN ROOM. PT PALCED ON HER LEFT SIDE. BITE BLOCK IN. PT ON NRB PER ANESTHESIA, BIOX WNL-SEE HEART CENTER FLOW SHEET FOR VS. PROPOFOL GIVEN. 1241- SCOPE PASSED 1250-SCOPE OUT. NO ABLE TO PERFORM CARDIOVERSION AT THIS TIME DUE TO LARGE THROMBUS PER DR. ANTONY. PT IS STILL DROWSY AND NOT RESPONDING TO VERBAL STIMULI, HEART CENTER RN AZUCENA AT BEDSIDE ALONG WITH ANESTHESIA-TO REMAIN AT BEDSIDE UNTIL PATIENT IS MORE AWAKE. VSS. PT RESTING WITH EYES CLOSED, RESP E/U. 1301-PT IS RESPONDING TO TOUCH, SHE IS ABLE TO ANSWER YES AND NO QUESTIONS. HEART CENTER RN AT BEDSIDE CHARTING. VSS. ANESTHSIA OK WITH PTS SEDATION LEVEL, HEADING OUT OF THE ROOM.
--- NOTE | 2019-01-31 13:09 | NUR ---
PT TOLERATES GUCCI PROCEDURE WELL WITH ANESTHESIA. UNABLE TO COMPLETE CARDIOVERSION D/T RESULTS OF GUCCI. SEE ANESTHESIA SHEET/SEDATION SHEET FOR MEDICATIONS GIVEN. DR ANTONY SPOKE WITH FAMILY IN REGARDS TO FINDINGS. FULL REPORT TO CHASTITY MADSEN RN TO ASSUME CARE OF PT.
--- NOTE | 2019-01-31 14:07 | NUR ---
PT IS RESTING COMFORTABLY IN BED ON HER LEFT SIDE STILL. VSS. SHE AWAKENS TO VEBAL STIMULI. PLAN IS TO RATE CONTROL PATIENT WITH PO MEDS, POSSIBLE DC TOMORROW AM. WILL FOLLOW UP WITH CARDIOLOGY IN ONE MONTH TO REEVALUATE FOR POSSIBLE CARDIOVERSION. WAS AT BEDSIDE, AFTER PROCEDURE DR. ANTONY DISCUSSED PLAN WITH .
--- NOTE | 2019-01-31 15:53 | NUR ---
ASSESSMENT: PT RESTING IN BED AWAKE AND WATCHING TV. ASSESSMENT UNCHANGED. PT IS ASKING IF PROCEDURE WAS "SUCCESSFUL." THIS RN DISCUSSED WITH PATIENT WE WEREN'T ABLE TO CARDIOVERT BECAUSE PATIENT HAS THROMBUS. PT VERBALIZES UNDERSTANDING. PT DENIES OTHER NEEDS AT THIS TIME. CALL LIGHT IN REACH, WILL CONTINUE TO MONITOR.
--- NOTE | 2019-01-31 17:32 | NUR ---
PATIENT HAS BEEN STABLE T/O MY SHIFT. GUCCI DONE TODAY BY DR. ANTONY, FOUND LARGE THROMBUS, THUS THEY WERE NOT ABLE TO CARDIOVERT. PLAN IS TO TRY AND GET PATIENTS HEART RATE UNDER CONTROL WITH PO MEDICATIONS AND ATTEMPT A CARDIOVERSION IN ABOUT ANOTHER MONTH. PT IS SITTING UP IN BED EATING DINNER. NO ACUTE CHANGES THIS SHIFT. WILL REPORT TO ONCOMING RN.
[2019-02-01 04:21] LABS: Albumin, Blood 3.3 g/dL (3.4-5.0); Anion Gap 7 mmol/L (6-16); Blood Urea Nitrogen 26 mg/dL (8-24); Bun/Creatinine Ratio 43.3 (12.0-20.0); CO2, Blood 28 mmol/L (21-32); Calcium, Blood 8.5 mg/dL (8.5-10.1); Chloride, Blood 91 mmol/L (98-108); Glomerular Filtration Rate >60 (60-); Glucose, Blood 95 mg/dL (70-99); Phosphorus, Blood 3.7 mg/dL (2.5-4.9); Potassium, Blood 4.7 mmol/L (3.5-5.5); Sodium, Blood 126 mmol/L (136-145)
--- NOTE | 2019-02-01 07:30 | NUR ---
SHIFT SUMMARY PATIENT PLEASENT AND COOPERATIVE THROUGHOUT THE NIGHT. PATIENT APPEARED TO BE ABLE TO SLEEP WELL THROUGHOUT THE NIGHT. PATIENT MEDICATED FOR PAIN PER EMAR. PATIENT'S HEART RATE TRENDING IN THE 110'S-120'S LAST NIGHT PER TELE MONITOR. VITAL SIGNS CHARTED. REPORT GIVEN TO ONCOMING RN.
--- NOTE | 2019-02-01 16:05 | NUR ---
PT RESTING COMFORTABLY ON BED IN ROOM. WATCHING TV. NADN. DENIES ANY WANTS OR NEEDS. CALL LIGHT IN REACH. PT VERY UNSTEADY ON FEET DURING DAY. ONE PERSON SBA TO AND FROM BATHROOM. PT REMAINS IN BED DURING DAY. EXPRESSES WANTS TO GO HOME TO TAKE CARE OF HER WHO IS 84 YEARS OLD. SEASONAL SALES ASSOCIATE CONSULT PLACED BY THIS RN FOR POSSIBLE HOME HEALTH REFERRAL AT CT.
[2019-02-02 04:27] LABS: Albumin, Blood 3.3 g/dL (3.4-5.0); Anion Gap 9 mmol/L (6-16); Blood Urea Nitrogen 18 mg/dL (8-24); Bun/Creatinine Ratio 35.6 (12.0-20.0); CO2, Blood 26 mmol/L (21-32); Calcium, Blood 8.3 mg/dL (8.5-10.1); Chloride, Blood 91 mmol/L (98-108); Creatinine, Blood 0.51 mg/dL (0.40-1.00); Glomerular Filtration Rate >60 (60-); Glucose, Blood 93 mg/dL (70-99); Phosphorus, Blood 3.2 mg/dL (2.5-4.9); Potassium, Blood 4.9 mmol/L (3.5-5.5); Sodium, Blood 126 mmol/L (136-145)
--- NOTE | 2019-02-02 06:38 | NUR ---
SHIFT SUMMARY PATIENT PLEASENT AND COOPERATIVE THROUGHOUT THE NIGHT. PATIENT APPEARED TO SLEEP WELL FOR MOST OF THE NIGHT. PATIENT UP TO THE BATHROOM WITH SBA SEVERAL TIMES. PATIENT MEDICATED FOR PAIN PER EMAR. PATIENT'S HEART RATE IN THE 110'S-120'S FOR MOST OF THE NIGHT. IV ACCESS LOST LAST NIGHT. SEVERAL DIFFERENT RN'S ATTEMPTED TO GAIN IV ACCESS WITH NO SUCCESS. DUE TO PATIENT BEING MEDICAL STATUS AND HAVING ONLY PO MEDS, DAY SHIFT WILL CONTINUE TO ATTEMPT TO OBTAIN IV ACCESS WHEN THEY ARRIVE. WILL MONITOR PATIENT HEART RATE. CHARGE NURSE RADHAMES HIGUERA AWARE AND AGREEES WITH PLAN. VITAL SIGNS CHARTED. WILL CONTINUE TO MONITOR PATIENT AND REPORT TO ONCOMING RN.
--- NOTE | 2019-02-02 10:34 | NUR ---
assumed care and comfort of this patient at 0715 from Bob VILLAVICENCIO. pt was resting comfortably on bed in room. Watching TV. NADN. vital signs are within normal limits except for pulse in the 110's. She denies any pain or discomfort at this time. Denies any wants or needs. Will ontinue to monitor closely.
--- NOTE | 2019-02-03 06:11 | NUR ---
SHIFT SUMMARY PATIENT PLEASENT AND COOPERATIVE THROUGHOUT THE NIGHT. PATIENT APPEARED TO SLEEP WELL LAST NIGHT. PATIENT MEDICATED FOR PAIN PER EMAR. PATIENT UP TO THE BATHROOM SEVERAL TIMES. VITAL SIGNS CHARTED. PATIENT'S HEART RATE TRENDING IN THE 120'S-130'S THROUGHOUT MOST OF THE NIGHT. WILL CONTINUE TO MONITOR PATIENT AND REPORT TO ONCOMING RN.
--- NOTE | 2019-02-03 07:15 | NUR ---
RECEIVED REPORT FROM MAYE KISER, AND ASSUMED CARE OF PT.
--- NOTE | 2019-02-03 09:30 | NUR ---
NURSING SUMMARY SLEPT IN THIS AM, AWOKE AT 0840. VSS. AFIB ON MONITOR, HR 126. LUNGS CLEAR, DIMINISHED AT THE BASES, 2L O2 NC, SATS 99%. USES 2.5L HOME O2. INSTRUCTED RE: CALLING FOR ASSISTANCE OUT OF BED TO THE BEDSIDE COMMODE OR BATHROOM, STANDBY ASSISTANCE WITH TRANSFERS. TOLERATING A CARDIAC DIET, 1 LITER FLUID RESTRICTION. SKIN INTACT. DENIES PAIN AT THIS TIME. NO IV ACCESS.
--- NOTE | 2019-02-03 09:45 | NUR ---
DR. GARCIA AT BEDSIDE FOR EVALUATION.
[2019-02-03] MEDS ORDERED: METO50ER PO (10:56)
[2019-02-03] MEDS ORDERED: GABA300 PO (10:57)
[2019-02-03] MEDS ORDERED: CHOL10002 PO (10:58)
[2019-02-03] MEDS ORDERED: DILT120 PO (10:58)
--- NOTE | 2019-02-03 11:10 | NUR ---
PROVIDED PT WITH DISCHARGE INSTRUCTIONS AND ANSWERED ALL QUESTIONS. FAXED PT'S PRESCRIPTIONS TO [facility] THE [facility]. PT DID NOT HAVE AN IV TO REMOVE. PT WAS ESCORTED OUT OF THE HOSPITAL VIA WHEELCHAIR ACCOMPANIED BY HER AND BIKE TECHNICIAN.
== END 2019-02-03 11:21 | disposition home or self-care (01) | DRG 308 ==
LOC: ER 18:52 → PCU 18:53 → ER 18:53 → PCU 18:53
PROVIDERS: Internal Medicine; Internal Medicine Cardiovascular Disease; Physician Assistant; ADMIT Internal Medicine
PROC: B24BZZ4 Ultrasonography of Heart with Aorta, Transesophageal (ICD-10-PCS; principal; 2019-01-31)
DX: I48.0 Paroxysmal atrial fibrillation (principal); E43 Unspecified severe protein-calorie malnutrition; J96.11 Chronic respiratory failure with hypoxia; R64 Cachexia; E22.2 Syndrome of inappropriate secretion of antidiuretic hormone; Z99.81 Dependence on supplemental oxygen; J43.9 Emphysema, unspecified; Z95.2 Presence of prosthetic heart valve; F17.210 Nicotine dependence, cigarettes, uncomplicated; M81.0 Age-related osteoporosis without current pathological fracture; D56.9 Thalassemia, unspecified; I27.20 Pulmonary hypertension, unspecified; K21.9 Gastro-esophageal reflux disease without esophagitis; F41.8 Other specified anxiety disorders; Z68.20 Body mass index [BMI] 20.0-20.9, adult; I20.9 Angina pectoris, unspecified; R33.9 Retention of urine, unspecified; I51.3 Intracardiac thrombosis, not elsewhere classified
CPT/HCPCS: 36415; 51701; 71045; 80048; 80053; 80069; 80162; 83735; 83880; 83930; 83935; 84443; 84484; 85025; 85027; 85730; 93005; 93010; 93306; 93312; 93325; 94640; 94760; 96365; 96366; 96372; 96375; 96376; 97110; 97116; 97161; 97165; 99285-25; C1751; G0378; J0282; J1160; J1644; J1650; J2704; J3475; J7030; J7050; J7060

== ENCOUNTER 2019-02-06 04:07 | Inpatient (IN) | payer OTHER ==
[~2019-02-06] VITALS: Ht 167.6 cm; Wt 65.1 kg
[~2019-02-06 04:07] MED LIST changes: +Calcium + Vita1 EACH PO; +Colace100 MG PO; +DILT120 PO; +Loratadine10 MG PO; +METO50ER PO; +PROLIA60 MG/1 ML; +Verotin-Gr Cap1 EACH PO
[2019-02-06 04:44] LABS: BASOPHILS ABSOLUTE AUTO 0.03 K/mm3 (0.00-0.23); BASOPHILS PERCENT AUTO 0 % (0-2); EOSINOPHILS ABSOLUTE AUTO 0.05 K/mm3 (0.00-0.68); EOSINOPHILS PERCENT AUTO 0 % (0-6); Hematocrit 33.9 % (33.0-51.0); Hemoglobin 11.3 g/dL (11.5-16.0); IMMATURE GRAN ABSOLUTE AUTO 0.13 K/mm3 (0.00-0.10); IMMATURE GRAN PERCENT AUTO 1 % (0-1); LYMPHOCYTES ABSOLUTE AUTO 0.86 K/mm3 (0.84-5.20); LYMPHOCYTES PERCENT AUTO 6 % (21-46); MONOCYTES ABSOLUTE AUTO 1.26 K/mm3 (0.16-1.47); MONOCYTES PERCENT AUTO 9 % (4-13); Mean Corpuscular HGB 23.2 pg (26.0-34.0); Mean Corpuscular HGB Conc 33.3 g/dL (31.5-36.5); Mean Corpuscular Volume 70 fL (80-100); NEUTROPHILS ABSOLUTE AUTO 11.23 K/mm3 (1.96-9.15); NEUTROPHILS PERCENT AUTO 83 % (41-73); NRBC ABSOLUTE 0.72 K/mm3 (0.00-0.02); NRBC Auto 5.3 /100 WBC (0.0-0.2); RDW Coefficient Variation 18.6 % (11.7-14.2); Red Blood Cell Count 4.87 M/mm3 (3.80-5.20); White Blood Cell Count 13.56 K/mm3 (4.00-11.30)
[2019-02-06 04:55] LABS: Platelet Count 28 K/mm3 (150-400)
[2019-02-06 05:29] LABS: Alanine Aminotransfer (ALT/SGP 925 U/L (12-78); Albumin, Blood 3.5 g/dL (3.4-5.0); Albumin/Globulin Ratio 1.1 (0.8-1.8); Alk Phos 144 U/L (50-136); Anion Gap 9 mmol/L (6-16); Aspartate Aminotrans (AST/SGOT 188 U/L (12-37); Bilirubin, Total 3.2 mg/dL (0.1-1.0); Blood Urea Nitrogen 12 mg/dL (8-24); Bun/Creatinine Ratio 25.3 (12.0-20.0); CO2, Blood 24 mmol/L (21-32); Calcium, Blood 8.3 mg/dL (8.5-10.1); Chloride, Blood 85 mmol/L (98-108); Creatinine, Blood 0.48 mg/dL (0.40-1.00); Globulin, Blood 3.2 g/dL (2.2-4.0); Glomerular Filtration Rate >60 (60-); Glucose, Blood 113 mg/dL (70-99); Potassium, Blood 4.8 mmol/L (3.5-5.5); Sodium, Blood 118 mmol/L (136-145); Total Protein, Blood 6.7 g/dL (6.4-8.2)
[2019-02-06 05:39] LABS: BASOPHILS ABSOLUTE AUTO 0.03 K/mm3 (0.00-0.23); BASOPHILS PERCENT AUTO 0 % (0-2); EOSINOPHILS ABSOLUTE AUTO 0.04 K/mm3 (0.00-0.68); EOSINOPHILS PERCENT AUTO 0 % (0-6); Hematocrit 33.6 % (33.0-51.0); Hemoglobin 11.2 g/dL (11.5-16.0); IMMATURE GRAN ABSOLUTE AUTO 0.17 K/mm3 (0.00-0.10); IMMATURE GRAN PERCENT AUTO 1 % (0-1); LYMPHOCYTES ABSOLUTE AUTO 1.43 K/mm3 (0.84-5.20); LYMPHOCYTES PERCENT AUTO 9 % (21-46); MONOCYTES ABSOLUTE AUTO 1.73 K/mm3 (0.16-1.47); MONOCYTES PERCENT AUTO 10 % (4-13); Mean Corpuscular HGB 23.3 pg (26.0-34.0); Mean Corpuscular HGB Conc 33.3 g/dL (31.5-36.5); Mean Corpuscular Volume 70 fL (80-100); NEUTROPHILS ABSOLUTE AUTO 13.21 K/mm3 (1.96-9.15); NEUTROPHILS PERCENT AUTO 80 % (41-73); NRBC ABSOLUTE 0.65 K/mm3 (0.00-0.02); NRBC Auto 3.9 /100 WBC (0.0-0.2); RDW Coefficient Variation 19.6 % (11.7-14.2); RDW Standard Deviation 39.8 fL (35.1-46.3); Red Blood Cell Count 4.81 M/mm3 (3.80-5.20); White Blood Cell Count 16.61 K/mm3 (4.00-11.30)
[2019-02-06 05:42] LABS: Platelet Count 32 K/mm3 (150-400)
[2019-02-06 10:51] LABS: Anion Gap 10 mmol/L (6-16); Blood Urea Nitrogen 10 mg/dL (8-24); Bun/Creatinine Ratio 22.8 (12.0-20.0); CO2, Blood 22 mmol/L (21-32); Calcium, Blood 8.2 mg/dL (8.5-10.1); Chloride, Blood 87 mmol/L (98-108); Creatinine, Blood 0.44 mg/dL (0.40-1.00); Glomerular Filtration Rate >60 (60-); Glucose, Blood 91 mg/dL (70-99); Sodium, Blood 119 mmol/L (136-145)
--- NOTE | 2019-02-06 18:43 | NUR ---
SUMMARY: 1442: PT ARIVES 1445: RECEIVED VERBAL ORDER FOR FENTANYL AND VERSED FROM [facility] 1450: DR PHILIP PLACED PROLAPSED RECTUM BACK INTO PLACE. PT RECEIVED 1 MG OF VERSED AND 50 MEQ OF FENTANYL. 1500: 2L O2 VIA NC PUT IN PLACE D/T DECREASED O2 LEVELS AND DECREASED MENTATION. 1523: 3% NA STARTED AT 25 PER REPORTING RN. 1540: CALLED TO [facility] 3% NA ORDER. INCREASED PUMP RATE TO 30ML/HR. NEW ORDERS PLACED. 1745: DR KATZ NOTIFIED OF NA LEVELS DRAWN, RECEIVED ORDERS TO INCREASE 3% TO 35ML/HR INCREASED PUMP RATE AT THIS TIME. 1841: BLADDER SCAN NOTED PT TO HAVE APPROX 750ML IN BLADDER DR KATZ NOTIFIED AND RECEIVED ORDER FOR MCGOWAN. ALSO RECEIVED ORDER TO HOLD NS MAINTANENCE FLUID OF 100ML/HR WHILE 3% NA IS BEING INFUSED. MCGOWAN BEING PLACED AT THIS TIME.
[2019-02-06 19:07] LABS: Source, Urine Catheter
--- NOTE | 2019-02-06 19:15 | NUR ---
ASSUMED CARE PT RESTING SUPINE IN BED, WAKES TO VOICE BUT IS DROWSY AND FALLS BACK TO SLEEP EASILY. 3% NACL INFUSING WITH PLAN TO RECHECK SERUM NA AT [address] KATZ. FC PLACED D/T URINARY RETENTION, URINE IS ORANGE AND FOULD SMELLING WITH UC PENDING. VSS, ECG SHOWS AFIB 90-130'S, O2 VIA NC AT 2L AND PER REPORT, PT WEARS 2L/NC AT HS NORMALLY.
[2019-02-06 19:18] LABS: Appearance, Urine Clear (Clear); Bilirubin, Urine Neg (Neg); Blood, Urine 2+ (Neg); Color, Urine Amber (P-Yellow); Glucose Qualitative, Urine Neg (Neg); Ketones, Urine 2+ (Neg); Leukocyte Esterase, Urine 1+ (Neg); Nitrite, Urine Neg (Neg); Protein, Urine 2+ (Neg); Urobilinogen, Urine 3+ (Normal); pH, Urine 6.5 (5.0-8.0)
[2019-02-06 19:36] LABS: Bacteria Many /hpf; Red Blood Cells, Urine 0-2 /hpf (0-2); Squamous Epithelial Cells Few /hpf (Few)
--- NOTE | 2019-02-06 20:15 | NUR ---
DR KATZ CALL TO DR KATZ, UPDATED ON CURRENT SERUM SODIUM LEVEL. ORDER TO INCREASE TO 40ML/HR AND TO STOP PO NACL PILLS. PLAN TO RECHECK SERUM NA AT [address] KATZ ONCE RESULTED.
--- NOTE | 2019-02-06 22:40 | NUR ---
UPDATE TO DR GIANNA KATZ UPDATED ON 2215 SERUM SODIUM. NO NEW ORDERS, LEAVE 3% NACL AT 40ML/HR AND NO REPEAT UNTIL AM LABS.
--- NOTE | 2019-02-07 01:45 | NUR ---
UPDATE DR KATZ CALLED NEAL RN, WANTS ALL AM LABS DRAWN NOW STAT AND TO BE CALLED WITH RESULTS. LAB HERE NOW OBTAINING SPECIMEN. WILL CALL ONCE RESULTED.
[2019-02-07 02:08] LABS: BASOPHILS ABSOLUTE AUTO 0.04 K/mm3 (0.00-0.23); BASOPHILS PERCENT AUTO 0 % (0-2); EOSINOPHILS ABSOLUTE AUTO 0.09 K/mm3 (0.00-0.68); EOSINOPHILS PERCENT AUTO 1 % (0-6); Hematocrit 32.2 % (33.0-51.0); Hemoglobin 10.6 g/dL (11.5-16.0); IMMATURE GRAN ABSOLUTE AUTO 0.13 K/mm3 (0.00-0.10); IMMATURE GRAN PERCENT AUTO 1 % (0-1); LYMPHOCYTES ABSOLUTE AUTO 1.46 K/mm3 (0.84-5.20); LYMPHOCYTES PERCENT AUTO 11 % (21-46); MONOCYTES ABSOLUTE AUTO 1.03 K/mm3 (0.16-1.47); MONOCYTES PERCENT AUTO 8 % (4-13); Mean Corpuscular HGB 23.3 pg (26.0-34.0); Mean Corpuscular HGB Conc 32.9 g/dL (31.5-36.5); Mean Corpuscular Volume 71 fL (80-100); NEUTROPHILS ABSOLUTE AUTO 10.65 K/mm3 (1.96-9.15); NEUTROPHILS PERCENT AUTO 79 % (41-73); NRBC ABSOLUTE 0.19 K/mm3 (0.00-0.02); NRBC Auto 1.4 /100 WBC (0.0-0.2); RDW Coefficient Variation 19.1 % (11.7-14.2); RDW Standard Deviation 39.8 fL (35.1-46.3); Red Blood Cell Count 4.55 M/mm3 (3.80-5.20)
[2019-02-07 02:12] LABS: Platelet Count 38 K/mm3 (150-400)
[2019-02-07 02:28] LABS: Albumin, Blood 2.8 g/dL (3.4-5.0); Anion Gap 8 mmol/L (6-16); Blood Urea Nitrogen 9 mg/dL (8-24); Bun/Creatinine Ratio 19.3 (12.0-20.0); CO2, Blood 23 mmol/L (21-32); Calcium, Blood 7.8 mg/dL (8.5-10.1); Chloride, Blood 95 mmol/L (98-108); Creatinine, Blood 0.47 mg/dL (0.40-1.00); Glomerular Filtration Rate >60 (60-); Glucose, Blood 76 mg/dL (70-99); Magnesium, Blood 1.8 mg/dL (1.6-2.4); Phosphorus, Blood 3.4 mg/dL (2.5-4.9); Sodium, Blood 126 mmol/L (136-145)
--- NOTE | 2019-02-07 02:41 | NUR ---
DR KATZ UPDATE ON AM LABS, ORDERS TO RESTART PO NACL TABS, 20MG LASIX PO EVERY OTHER DAY, 10 MEQ KCL EVERY OTHER DAY, RESTATED CURRENTLY OREDERED FLUID RESTRICTION, DISCONTINUE TO 3% NACL BY 0430 AND REPEAT SERUM NA TOMORROW PM AT 1800. NO FURTHER LABS ORDERED, PER DR KATZ, HE WILL ENTER THEM.
--- NOTE | 2019-02-07 06:15 | NUR ---
SHIFT SUMMARY NO ACUTE EVENTS OVERNIGHT. PT REMAINS AWAKE AND ALERT WITH OCCASIONAL FORGETFULNESS. 3% NACL STOPPED AT [address] KATZ. PT REPORTS SHE IS FEELING MUCH BETTER THAN AT ARRIVAL AND IS MORE AWAKE AND INTERACTIVE WITH CARE. NO FURTHER PROLAPSE OF RECTUM AFTER MANUAL REDUCTION BY DR PHILIP. ECG SHOWS AFIB WITH RATE OF 110-120 BUT NOT ALL BEATS PERFUSE, APICAL RATE IN THE 60'S. O2 VIA NC AT 2.5L/NC IS PTS HOME RATE. CALL THIS AM TO DR GAY FOR STATUS CHANGE OBTAINED TO [facility] TELE SINCE 3% NACL COMPLETED AND SERUM NA TRENDING UPWARD.
--- NOTE | 2019-02-07 07:15 | NUR ---
START OF SHIFT NOTE: RECEIVED REPORT FROM NASREEN LEE, RN, ASSUMED CARE, PATIENT IS AWAKE, ALERT AND ORIENTED, AFEBRILE, DENIES PAIN, REPORTS NO CHEST PAIN/PRESSURE, DENIES SOB, ON 2L NC WITH O2 SATS IN UPPER 90'S, LUNG SOUNDS DIMISHED WITH RHONCHI, PATIENT IS A CURRENT SMOKER, A-FIB WITH HR IN LOW 100'S, BOWEL TONES HYPOACTIVE, PATIENT IS CURRENTLY NPO, BUT VERBALIZES DESIRE TO EAT, MCGOWAN CATHETER IN PLACE, DRAINING GLEN COLORED URINE, SKIN C/D/I, DR. GOSS AT BEDSIDE, NEW ORDERS RECEIVED, AT BEDSIDE, CALL LIGHT IN REACH, WILL CONTINUE TO MONITOR.
--- NOTE | 2019-02-07 08:30 | NUR ---
DR. PHILIP IN TO SEE PATIENT, NO NEW ORDERS RECEIVED.
--- NOTE | 2019-02-07 08:39 | NUR ---
CONSULT TO DR. SCHWARTZ, HEMATOLOGY, WAS CALLED ON 02-06-19 AT 10 AM, NO NOTE FOUND IN PATIENT CHART THAT DR. SCHWARTZ SAW PATIENT, DR. GOSS ASKED THIS RN TO CALL HEMATOLOGY AGAIN AND CLARIFY IF DR. SCHWARTZ SAW PATIENT OR NOT, SPOKE WITH RODOLFO, DIRECTOR OF ASSESSING, WHO IN TURN SPOKE WITH THE GAS LINE INSTALLER SUPERVISOR, DR. SCHWARTZ DID NOT SEE PATIENT YET.
--- NOTE | 2019-02-07 12:55 | NUR ---
REPORT CALLED TO NAGI MONGE RN, WILL GIVE PATIENT 1300 MEDICATIONS AND MOVE PATIENT TO ROOM 328.
--- NOTE | 2019-02-07 13:27 | NUR ---
PATIENT MOVED TO ROOM 328 VIA WHEELCHAIR AND ALL BELONGINGS AND MEDICATIONS.
--- NOTE | 2019-02-07 13:46 | NUR ---
PATIENT SRRIVED FROM ICU 16 TO ROOM 328. ASSUMED CARE, REPORT RECEIVED FROM MAYE MARTINEZ IN ICU. PATIENT ON 2L O2 VIA NC. PATIENT WAS WEARING A DNR BRACELET, BUT HAS AN ORDER FOR FULL CODE. PATIENT REPORTS THAT SHE IS A DNR, DR. GOSS NOTIFIED AND THIS WAS CHANGED. PATIENT ON RA, 2LO2 AT NIGHT. ORIENTED TO ROOM, USE OF CALL LIGHT AND DENIES ANY NEEDS AT THIS TIME. 1L FLUID RESTRICTION, ACHS BLOOD SUGARS AND ADA DIET.
--- NOTE | 2019-02-08 04:54 | NUR ---
SHIFT SUMMARY NO CHANGES THIS SHIFT. PT PLEASANT AND COOPERATIVE. DENIED ANY PAIN OR NEEDS THROUGHOUT THE SHIFT. PT ON 1 L FLUID RESTRICTION. REPORTED TO HAVE 300 ML AT START OF SHIFT REMAINING. PT ONLY HAD SEVERAL SMALL SIPS THROUGHOUT THE NIGHT TO SWALLOW HER MEDICATION. PO DILAUDID REQUESTED BEFORE BEDTIME FOR CHRONIC BACK PN REPORTED TO BE 02/26. PT SLEPT WELL THIS EVENING. VSS. WILL CONTINUE TO MONITOR AND REPORT TO DAY RN.
[2019-02-08 05:41] LABS: Hematocrit 31.8 % (33.0-51.0); Hemoglobin 10.5 g/dL (11.5-16.0)
[2019-02-08 06:02] LABS: Albumin, Blood 2.9 g/dL (3.4-5.0); Anion Gap 6 mmol/L (6-16); Blood Urea Nitrogen 10 mg/dL (8-24); CO2, Blood 25 mmol/L (21-32); Calcium, Blood 8.7 mg/dL (8.5-10.1); Chloride, Blood 97 mmol/L (98-108); Glomerular Filtration Rate >60 (60-); Glucose, Blood 97 mg/dL (70-99); Magnesium, Blood 1.9 mg/dL (1.6-2.4); Phosphorus, Blood 3.7 mg/dL (2.5-4.9); Potassium, Blood 4.7 mmol/L (3.5-5.5); Sodium, Blood 128 mmol/L (136-145); Uric Acid, Blood 3.1 mg/dL (2.6-6.0)
[2019-02-08 08:08] LABS: Hemoglobin 10.4 g/dL (11.5-16.0); Mean Corpuscular HGB 23.1 pg (26.0-34.0); Mean Corpuscular HGB Conc 32.5 g/dL (31.5-36.5); Mean Corpuscular Volume 71 fL (80-100); NRBC ABSOLUTE 0.14 K/mm3 (0.00-0.02); NRBC Auto 1.4 /100 WBC (0.0-0.2); Platelet Count 51 K/mm3 (150-400); RDW Standard Deviation 42.9 fL (35.1-46.3); White Blood Cell Count 10.04 K/mm3 (4.00-11.30)
--- NOTE | 2019-02-08 16:37 | NUR ---
PATIENT A/OX4, UP INDEPENDENTLY TO RESTROOM. MCGOWAN D/C'D THIS AFTERNOON AFTER BLADDER TRAINING. PATIENT CONTINUES ON FLUID RESTRICTION OF 1L/DAY AND IS COMPLIANT WITH THIS. DILAUDID PRN FOR CHRONIC BACK PAIN. SALT TABS ORDERED TO TREAT HYPONATREMIA. PATIENT IS CALM AND COOPERATIVE WITH CARE AND CALLS APPROPRIATELY FOR ASSISTANCE.
--- NOTE | 2019-02-08 18:32 | NUR ---
PATIENT GOT UP TO GET HER CHAPSTICK THAT DROPPED ON THE FLOOR AND WAS BEDNING DOWN TO GET IT AND FELL BACKWARDS ON HER TAILBONE. PATIENT REPORTS HER BOTTOM IS SORE, BUT DOES NOT FEEL THAT SHE NEEDS TO SEE A DOCTOR. DR. GOSS NOTIFED OF FALL. CHARGE NURSE LAMBERT NOTIFIED AND PATIENT NOW HAS BED ALARM SET AND WAS INSTRUCTED TO CALL FOR WHEN NEEDING TO GET OUT OF BED. PATIENT CALLED TO INFORM HIM ABOUT WHAT HAPPENED.
[2019-02-09 04:57] LABS: Hematocrit 34.6 % (33.0-51.0); Hemoglobin 11.1 g/dL (11.5-16.0); Mean Corpuscular HGB 23.7 pg (26.0-34.0); Mean Corpuscular HGB Conc 32.1 g/dL (31.5-36.5); NRBC ABSOLUTE 0.17 K/mm3 (0.00-0.02); NRBC Auto 1.8 /100 WBC (0.0-0.2); Platelet Count 52 K/mm3 (150-400); RDW Standard Deviation 46.3 fL (35.1-46.3); Red Blood Cell Count 4.68 M/mm3 (3.80-5.20); White Blood Cell Count 9.59 K/mm3 (4.00-11.30)
[2019-02-09 05:02] LABS: Mean Corpuscular Volume 74 fL (80-100)
--- NOTE | 2019-02-09 05:13 | NUR ---
SHIFT SUMMARY PT SLEPT WELL THIS EVENING. DID NOT ATTEMPT TO GET OOB WITHOUT ASSISTANCE. REPORTED CHRONIC BACK PAIN OF 8/10 THIS EVENING BEFORE BED. MEDICATED X 1 WITH 2 MG DILUADID PO. PT REPORTED TAIL BONE MORE PAINFUL THIS EVENING AFTER FALL DURING DAY SHIFT. PT HAS NOT VOIDED YET THIS SHIFT. GOT PT UP TO ATTEMPT TO VOID BUT PT WAS UNABLE. BLADDER SCAN ONLY READING 315 ML. PT REQUESTING TO GIVE MORE TIME TO VOID BEFORE REINSERTING CATHETER. PT DID WELL WITH FLUID RESTRICTION. ONLY DRINKING ENOUGH WATER TO SWALLOW NIGHT TIME MEDICATIONS. OTHERWISE NO ACUTE CHANGES. HEART RATE BRADYCARDIC AT TIMES BUT DOES NOT SUSTAIN. OTHERWISE VITAL SIGNS STABLE. WILL CONTINUE TO MONITOR AND REPORT TO DAY RN.
[2019-02-09 05:16] LABS: Anion Gap 7 mmol/L (6-16); Blood Urea Nitrogen 15 mg/dL (8-24); Bun/Creatinine Ratio 29.8 (12.0-20.0); CO2, Blood 25 mmol/L (21-32); Chloride, Blood 97 mmol/L (98-108); Glomerular Filtration Rate >60 (60-); Glucose, Blood 108 mg/dL (70-99); Magnesium, Blood 1.9 mg/dL (1.6-2.4); Phosphorus, Blood 4.3 mg/dL (2.5-4.9); Sodium, Blood 129 mmol/L (136-145)
[2019-02-09] MEDS ORDERED: FURO20 PO (12:55)
[2019-02-09] MEDS ORDERED: GLYCOPYRROLATE INH (12:56)
[2019-02-09] MEDS ORDERED: SENN187 PO (12:57)
[2019-02-09] MEDS ORDERED: SODCHL1 PO (12:57)
[2019-02-09] MEDS ORDERED: MIRALAX17 GM PO (12:57)
--- NOTE | 2019-02-09 15:05 | NUR ---
PATIENT D/C'D TO HOME WITH . RX MEDICATIONS FAXED TO [facility] ON [address]. D/C INSTRUCTIONS AND EDUCATION DISCUSSED WITH PATIENT AND COPY PROVIDED. PATIENT WOULD LIKE TO THINK ABOUT [facility] SHE WANTS AND WOULD LIKE FARO DEALER TO FOLLOW UP WITH HER TOMORROW. PATIENT DENIES ANY FURTHER QUESTIONS OR CONCERNS.
[2019-02-17 08:08] LABS: HEPARIN INDUCED PLATELET AB 0.839 OD (0.000-0.400); SRA, LOW DOSE HEPARIN 7 % (0-20)
== END 2019-02-09 14:57 | disposition home health service (06) | DRG 641 ==
LOC: ER 04:07 → ERHOLD 06:32 → ICUW 06:32 → MEDS 06:32 → ICUW 08:18 → MEDS 08:29 → ICUW 14:34 → MEDS 02-07 13:35 → ENPENDDIS 02-09 12:14 → MEDS 02-09 14:57
PROVIDERS: Emergency Medicine; Hospitalist; Internal Medicine; Internal Medicine Hematology & Oncology; Internal Medicine Nephrology; ADMIT Internal Medicine
PROC: 0DSPXZZ Reposition Rectum, External Approach (ICD-10-PCS; principal; 2019-02-06)
DX: E87.1 Hypo-osmolality and hyponatremia (principal); D69.6 Thrombocytopenia, unspecified; Z95.3 Presence of xenogenic heart valve; I48.0 Paroxysmal atrial fibrillation; Z99.81 Dependence on supplemental oxygen; M81.0 Age-related osteoporosis without current pathological fracture; I51.3 Intracardiac thrombosis, not elsewhere classified; F17.200 Nicotine dependence, unspecified, uncomplicated; I27.20 Pulmonary hypertension, unspecified; F41.8 Other specified anxiety disorders; K62.3 Rectal prolapse; G47.33 Obstructive sleep apnea (adult) (pediatric); D56.3 Thalassemia minor; N18.2 Chronic kidney disease, stage 2 (mild); I25.10 Atherosclerotic heart disease of native coronary artery without angina pectoris; J43.9 Emphysema, unspecified; Z95.5 Presence of coronary angioplasty implant and graft; E88.09 Other disorders of plasma-protein metabolism, not elsewhere classified
CPT/HCPCS: 36415; 51703; 71046; 80048; 80053; 80069; 81001; 82533; 82947; 83735; 84295; 84443; 84550; 85014; 85018; 85025; 85027; 85055; 86022; 87077; 87086; 87186; 93005; 93010; 93970; 94640; 94760; 99285-25; J2250; J3010

== ENCOUNTER 2019-02-17 06:53 | Emergency (ER) | payer OTHER ==
[~2019-02-17] VITALS: Ht 167.6 cm; Wt 59.0 kg
[~2019-02-17 06:53] MED LIST changes: +FURO20 PO; +GLYCOPYRROLATE INH; +MIRALAX17 GM PO; +SENN187 PO; +SODCHL1 PO
== END 2019-02-17 07:54 | disposition home or self-care (01) ==
LOC: ER 06:53
DX: K62.3 Rectal prolapse (principal); Z88.0 Allergy status to penicillin; Z88.8 Allergy status to other drugs, medicaments and biological substances; Z88.1 Allergy status to other antibiotic agents; Z79.899 Other long term (current) drug therapy; J44.9 Chronic obstructive pulmonary disease, unspecified; F17.210 Nicotine dependence, cigarettes, uncomplicated
CPT/HCPCS: 99283

== ENCOUNTER 2019-02-19 06:18 | Emergency (ER) | payer OTHER ==
[~2019-02-19] VITALS: Ht 167.6 cm; Wt 68.0 kg
[2019-02-19 07:14] LABS: BASOPHILS ABSOLUTE AUTO 0.05 K/mm3 (0.00-0.23); BASOPHILS PERCENT AUTO 0 % (0-2); EOSINOPHILS ABSOLUTE AUTO 0.04 K/mm3 (0.00-0.68); EOSINOPHILS PERCENT AUTO 0 % (0-6); Hematocrit 27.1 % (33.0-51.0); Hemoglobin 8.6 g/dL (11.5-16.0); IMMATURE GRAN ABSOLUTE AUTO 0.07 K/mm3 (0.00-0.10); IMMATURE GRAN PERCENT AUTO 1 % (0-1); LYMPHOCYTES ABSOLUTE AUTO 0.79 K/mm3 (0.84-5.20); LYMPHOCYTES PERCENT AUTO 7 % (21-46); MONOCYTES ABSOLUTE AUTO 0.83 K/mm3 (0.16-1.47); MONOCYTES PERCENT AUTO 7 % (4-13); Mean Corpuscular HGB 24.1 pg (26.0-34.0); Mean Corpuscular HGB Conc 31.7 g/dL (31.5-36.5); Mean Corpuscular Volume 76 fL (80-100); Mean Platelet Volume 10.8 fL (9.1-12.4); NEUTROPHILS ABSOLUTE AUTO 9.47 K/mm3 (1.96-9.15); NEUTROPHILS PERCENT AUTO 84 % (41-73); NRBC ABSOLUTE 0.41 K/mm3 (0.00-0.02); NRBC Auto 3.6 /100 WBC (0.0-0.2); Platelet Count 121 K/mm3 (150-400); RDW Coefficient Variation 20.6 % (11.7-14.2); RDW Standard Deviation 50.6 fL (35.1-46.3); Red Blood Cell Count 3.57 M/mm3 (3.80-5.20); White Blood Cell Count 11.25 K/mm3 (4.00-11.30)
[2019-02-19 07:30] LABS: Anion Gap 7 mmol/L (6-16); Blood Urea Nitrogen 16 mg/dL (8-24); Bun/Creatinine Ratio 37.8 (12.0-20.0); CO2, Blood 23 mmol/L (21-32); Calcium, Blood 7.3 mg/dL (8.5-10.1); Chloride, Blood 96 mmol/L (98-108); Creatinine, Blood 0.42 mg/dL (0.40-1.00); Glomerular Filtration Rate >60 (60-); Glucose, Blood 103 mg/dL (70-99); Potassium, Blood 4.6 mmol/L (3.5-5.5); Sodium, Blood 126 mmol/L (136-145)
== END 2019-02-19 09:11 | disposition home or self-care (01) ==
LOC: ER 06:18
PROVIDERS: Emergency Medicine
DX: K62.3 Rectal prolapse (principal); J44.9 Chronic obstructive pulmonary disease, unspecified; I48.91 Unspecified atrial fibrillation; I10 Essential (primary) hypertension; F31.9 Bipolar disorder, unspecified; F41.9 Anxiety disorder, unspecified; Z88.0 Allergy status to penicillin; Z88.8 Allergy status to other drugs, medicaments and biological substances; Z88.1 Allergy status to other antibiotic agents; Z79.899 Other long term (current) drug therapy; F17.200 Nicotine dependence, unspecified, uncomplicated
CPT/HCPCS: 36415; 80048; 85025; 96374; 96376; 99283-25; J3010

== ENCOUNTER 2019-02-20 12:02 | Emergency (ER) | payer OTHER ==
[~2019-02-20] VITALS: Ht 167.6 cm; Wt 63.5 kg
== END 2019-02-20 16:07 | disposition home or self-care (01) ==
LOC: ER 12:02
DX: K62.3 Rectal prolapse (principal); J43.9 Emphysema, unspecified; Z86.19 Personal history of other infectious and parasitic diseases; Z95.2 Presence of prosthetic heart valve; F17.210 Nicotine dependence, cigarettes, uncomplicated; Z79.899 Other long term (current) drug therapy; Z88.1 Allergy status to other antibiotic agents; Z88.6 Allergy status to analgesic agent
CPT/HCPCS: 36415; 96374; 96375; 99283-25; J2405; J3010

== ENCOUNTER 2019-02-20 17:51 | Emergency (ER) | payer OTHER ==
[~2019-02-20] VITALS: Ht 167.6 cm; Wt 63.5 kg
== END 2019-02-20 18:38 | disposition home or self-care (01) ==
LOC: ER 17:51
DX: K62.3 Rectal prolapse (principal); J44.9 Chronic obstructive pulmonary disease, unspecified; I48.91 Unspecified atrial fibrillation; I50.9 Heart failure, unspecified
CPT/HCPCS: 99283

== ENCOUNTER 2019-02-21 09:25 | Emergency (ER) | payer OTHER ==
[~2019-02-21] VITALS: Ht 160 cm; Wt 74.8 kg
== END 2019-02-21 10:52 | disposition home or self-care (01) ==
LOC: ER 09:25
DX: K62.3 Rectal prolapse (principal); I48.91 Unspecified atrial fibrillation; J43.9 Emphysema, unspecified; I50.9 Heart failure, unspecified; G47.30 Sleep apnea, unspecified; F17.210 Nicotine dependence, cigarettes, uncomplicated; Z88.0 Allergy status to penicillin; Z88.1 Allergy status to other antibiotic agents; Z88.8 Allergy status to other drugs, medicaments and biological substances; Z79.899 Other long term (current) drug therapy; Z86.19 Personal history of other infectious and parasitic diseases
CPT/HCPCS: 99283

== ENCOUNTER 2019-02-26 07:31 | Emergency (ER) | payer OTHER ==
[~2019-02-26] VITALS: Ht 167.6 cm; Wt 63.5 kg
== END 2019-02-26 08:28 | disposition home or self-care (01) ==
LOC: ER 07:31
DX: K62.3 Rectal prolapse (principal); J43.9 Emphysema, unspecified; F17.210 Nicotine dependence, cigarettes, uncomplicated; Z88.0 Allergy status to penicillin; Z79.899 Other long term (current) drug therapy
CPT/HCPCS: 99283

== ENCOUNTER 2019-03-04 18:24 | Inpatient (IN) | payer OTHER ==
[~2019-03-04] VITALS: Ht 167.6 cm; Wt 91.2 kg
[2019-03-04 19:25] LABS: International Normalized Ratio 1.57
[2019-03-04 19:40] LABS: BASOPHILS ABSOLUTE AUTO 0.05 K/mm3 (0.00-0.23); BASOPHILS PERCENT AUTO 1 % (0-2); EOSINOPHILS PERCENT AUTO 1 % (0-6); Hematocrit 24.8 % (33.0-51.0); Hemoglobin 8.1 g/dL (11.5-16.0); IMMATURE GRAN ABSOLUTE AUTO 0.05 K/mm3 (0.00-0.10); IMMATURE GRAN PERCENT AUTO 1 % (0-1); LYMPHOCYTES ABSOLUTE AUTO 0.83 K/mm3 (0.84-5.20); LYMPHOCYTES PERCENT AUTO 8 % (21-46); MONOCYTES ABSOLUTE AUTO 1.02 K/mm3 (0.16-1.47); MONOCYTES PERCENT AUTO 10 % (4-13); Mean Corpuscular HGB 24.5 pg (26.0-34.0); Mean Corpuscular HGB Conc 32.7 g/dL (31.5-36.5); Mean Corpuscular Volume 75 fL (80-100); Mean Platelet Volume 11.2 fL (9.1-12.4); NEUTROPHILS ABSOLUTE AUTO 8.04 K/mm3 (1.96-9.15); NEUTROPHILS PERCENT AUTO 80 % (41-73); NRBC ABSOLUTE 0.14 K/mm3 (0.00-0.02); NRBC Auto 1.4 /100 WBC (0.0-0.2); Platelet Count 139 K/mm3 (150-400); RDW Coefficient Variation 18.7 % (11.7-14.2); RDW Standard Deviation 46.5 fL (35.1-46.3); Red Blood Cell Count 3.31 M/mm3 (3.80-5.20); White Blood Cell Count 10.09 K/mm3 (4.00-11.30)
[2019-03-04 20:09] LABS: Anion Gap 8 mmol/L (6-16); Blood Urea Nitrogen 7 mg/dL (8-24); Bun/Creatinine Ratio 17.5 (12.0-20.0); CO2, Blood 28 mmol/L (21-32); Calcium, Blood 8.1 mg/dL (8.5-10.1); Chloride, Blood 93 mmol/L (98-108); Glomerular Filtration Rate >60 (60-); Glucose, Blood 101 mg/dL (70-99); Potassium, Blood 3.1 mmol/L (3.5-5.5); Sodium, Blood 129 mmol/L (136-145)
--- NOTE | 2019-03-04 22:17 | NUR ---
ASSUMED CARE OF PT @SHIFT CHANGE. VS TAKEN, STABLE. PT ORIENTED TO ROOM. MED REC COMPLETED. ORDERED MEDICATIONS GIVEN. HEPARIN STARTED ORDERED, VERIFIED WITH MER STRONG RN. REPORT GIVEN TO ONCOMING NURSE KRISTEN MATTHEW.
--- NOTE | 2019-03-05 05:51 | NUR ---
SHIFT SUMMARY PT SLEEPING COMFORTABLY IN ROOM AT THIS TIME. NO ACUTE CHANGES IN STATUS T/O NIGHT. RESP EVEN UNLBOARED ON RA W/ SATS >92%. PT ABLE TO STAND AND MOVE TO BSC W/ SBA. PT SLEPT COMFORTABLY T/O NIGHT. MEDICATED FOR PAIN BEFORE BED. DENIES CP, OR SOB. DENIES OTHER NEEDS AT THIS TIME. [facility]
[2019-03-05 06:36] LABS: Source, Urine Clean Catch
[2019-03-05 06:45] LABS: Appearance, Urine Clear (Clear); Bilirubin, Urine 1+ (Neg); Blood, Urine Neg (Neg); Color, Urine Yellow (P-Yellow); Glucose Qualitative, Urine Neg (Neg); Ketones, Urine Neg (Neg); Leukocyte Esterase, Urine Neg (Neg); Nitrite, Urine Neg (Neg); Protein, Urine 1+ (Neg); Specific Gravity, Urine 1.005 (1.003-1.022); Urobilinogen, Urine 3+ (Normal)
--- NOTE | 2019-03-05 08:19 | NUR ---
AM NOTE. 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 PT IS A&Ox4 AND SBA TO THE BSC. PT DENIES ANY CHEST PAIN/PRESSURE, N/V OR ABDNORMAL SOB. PT IS ON RA WITH O2 SATS >90%. PT HAS 3+ PITTING EDEMA TO HER BILAT FEET, 2+ TO HER BLE AND 1+ TO HER BUE. PT'S L/S COARSE T/O AND VERY DIM IN THE BASES. BT PRESENT AND HYPOACTIVE, ABD IS SOFT AND NONTENDER TO PALP. CALL LIGHT IN REACH, BED IS LOCKED AND LOW WILL CONTINUE TO MONITOR.
--- NOTE | 2019-03-05 17:23 | NUR ---
SHIFT SUMMARY. NO ACUTE CHANGES NOTED THIS SHIFT. PT HAS BEEN FEBRILE WITH A T MAX OF 100.6, PT WAS MEDICATED WITH TYLENOL PER EMAR WITH GOOD RESULTS. PT HAS C/O OF PAIN AND WAS MEDICATED PER EMAR. PT DENIES ANY CHEST PAIN/PRESSURE OR ABNORMAL SOB. PT C/O OF NAUSEA AND WAS MEDICATED PER EMAR WITH GOOD RESULTS. PT HAS BEEN UP TO THE [facility] AND S[facility]. PT DENIES ANY LIGHTHEADED/DIZZNESS. PT'S BP HAS BEEN ON THE HYPOTENSIVE SIDE BUT NOT SYMPTOMATIC. PT'S HAS BEEN AT THE BEDSIDE OFF AND ON T/O THE SHIFT. PT'S URINE HAS BEEN DARK YELLOW/ORANGE IN COLOR WITH A VERY STRONG/FOUL SMELL. UA WAS DONE, NO CULTURE WAS INDICATED (SEE LAB RESULTS.) PT DENIES ANY SIGNS/SYMPTOMS OF UTI. PT'S HEPARIN GTT HAS BEEN RUNNING PER ORDERS, TITRATIONS ALSO PER ORDERS. CALL LIGHT IN REACH, BED IS LOCKED AND LOW WILL CONTINUE TO MONITOR UNTIL REPORT IS GIVEN TO ONCOMING RN.
--- NOTE | 2019-03-06 03:00 | NUR ---
PT UP IN ROOM W/O USING CALL LIGHT. THIS RN TO ROOM ON REPORT OF PT BEING OFF OF TELE AND FOUND PT SITTING CROSS LEGGED ON THE FLOOR BY BED. PT REPORTS "I GOT UP TO GO TO THE BATHROOM, AND THE FLOOR FELT SLICK SO I JUST SAT DOWN BECAUSE I DIDN'T WANT TO FALL". THIS RN EXAMINED PT, NO COMPLAINTS OF PAIN, AND NO SIGNS OF TRAUMA. PT DENIES HITTING HEAD. PT REPEATS "I DIDN'T FALL I SAT DOWN, BECAUSE I FELT LIEK I MIGHT FALL". PT APPEARED SLIGHTLY CONFUSED, REPORTED DATE 2017, AND THOUGHT SHE WAS AT HOME IN HER LIVING ROOM. PT WAS REORIENTED TO TIME AND PLACE. PT THEN REPORTS SHE REMEMBERS COMING TO HOSPITAL, AND THAT SHE HAD A SURGERY ON SUNDAY. PT ABLE TO STATE NAME OF SURGEON AND REASON FOR SURGERY. PT ASSISTED BACK TO BED, AND EDUCATED ON NEED FOR BED ALARM FROM HERE ON OUT. PT AGREED. BATHROOM LIGHT LEFT ON TO ASSIST IN REORIENTING PT IF AWAKENING W/ CONFUSION AGAIN. CALL LIGHT IS WITHIN REACH. PT REEDUCATED ON USING CALL LIGHT BEFORE GETTING OUT OF BED, OR BED ALARM WILL SOUND.
--- NOTE | 2019-03-06 05:50 | NUR ---
SHIFT SUMMARY PT SLEEPING IN ROOM COMFORTABLY. PT HAD A NEAR FALL DURING THE NIGHT, SEE PREVIOUS NOTE. OTHER THAN THIS INCIDENT PT HAD NO ACUTE CHANGES IN STATUS. PT CONTINUES TO DIURESE W/ LASIX. URINE CONTIUNES TO HAVE FOUL SMELL. RESP EVEN UNLABORED ON RA W/ SATS >92%. DENIES CP, DENIES SOB. HEPARING GTT INFUSING IN PIV. CALL LIGHT IN REACH AND BED ALARM ON FOR SAFETY.
[2019-03-06 07:00] LABS: BASOPHILS ABSOLUTE AUTO 0.08 K/mm3 (0.00-0.23); BASOPHILS PERCENT AUTO 1 % (0-2); EOSINOPHILS ABSOLUTE AUTO 0.12 K/mm3 (0.00-0.68); EOSINOPHILS PERCENT AUTO 2 % (0-6); Hemoglobin 8.6 g/dL (11.5-16.0); IMMATURE GRAN ABSOLUTE AUTO 0.02 K/mm3 (0.00-0.10); IMMATURE GRAN PERCENT AUTO 0 % (0-1); LYMPHOCYTES ABSOLUTE AUTO 1.03 K/mm3 (0.84-5.20); LYMPHOCYTES PERCENT AUTO 14 % (21-46); MONOCYTES ABSOLUTE AUTO 0.82 K/mm3 (0.16-1.47); MONOCYTES PERCENT AUTO 11 % (4-13); Mean Corpuscular HGB 24.5 pg (26.0-34.0); Mean Corpuscular HGB Conc 31.9 g/dL (31.5-36.5); Mean Corpuscular Volume 77 fL (80-100); Mean Platelet Volume 11.7 fL (9.1-12.4); NEUTROPHILS ABSOLUTE AUTO 5.12 K/mm3 (1.96-9.15); NEUTROPHILS PERCENT AUTO 71 % (41-73); NRBC ABSOLUTE 0.15 K/mm3 (0.00-0.02); NRBC Auto 2.1 /100 WBC (0.0-0.2); Platelet Count 164 K/mm3 (150-400); RDW Coefficient Variation 18.6 % (11.7-14.2); RDW Standard Deviation 48.8 fL (35.1-46.3); Red Blood Cell Count 3.51 M/mm3 (3.80-5.20); White Blood Cell Count 7.19 K/mm3 (4.00-11.30)
[2019-03-06 07:13] LABS: Anion Gap 7 mmol/L (6-16); Blood Urea Nitrogen 13 mg/dL (8-24); Bun/Creatinine Ratio 24.9 (12.0-20.0); CO2, Blood 31 mmol/L (21-32); Calcium, Blood 8.6 mg/dL (8.5-10.1); Chloride, Blood 95 mmol/L (98-108); Creatinine, Blood 0.52 mg/dL (0.40-1.00); Glomerular Filtration Rate >60 (60-); Glucose, Blood 87 mg/dL (70-99); Potassium, Blood 3.4 mmol/L (3.5-5.5); Sodium, Blood 133 mmol/L (136-145)
--- NOTE | 2019-03-06 08:07 | NUR ---
AM NOTE. ASSUMED CARE OF PT APROX 0700, PT IS A&Ox3, WHEN ASKED IF THE PT KNEW WHERE SHE WAS SHE STATED "[place] WHEN PT WAS ASKED IF SHE KNEW THE DATE/MONTH SHE STATED "YES, FEBRUARY 2019, AND FRANK IS PRESIDENT." PT ALSO TOLD THIS RN THAT "I FELL LAST NIGHT." WHAT THIS RN WAS TOLD IN REPORT WAS THAT THE PT WAS FOUND ON THE FLOOR SITTING CROSS LEGGED BUT THAT THE PT WAS VERY CERTAIN THAT SHE DID NOT FALL. PT ALSO HAD THIS RN CALL HER BECUASE SHE WAS WORRIED THAT HER DID NOT KNOW WHERE SHE WAS AT, DURING THIS CALL THE PT ALSO TOLD HER THAT SHE HAD FALLEN DURING THE NIGHT. PT IS IN AFIB IN THE 100'S PER KEYLINER, PT'S BP 96/64. 3+ EDEMA NOTED TO THE PT'S BLE AND FEET, PT HAS DEPENDENT EDEMA NOTED TO HER BUE AND TORSO/FLANK/BUTTOCKS AREA. A VERY HARD AREA THE SIZE OF A BASEBALL IS NOTED TO THE PT'S RIGHT UPPER ARM, THIS WAS NOT PRESENT YESTERDAY. PT DENIES PAIN TO THIS AREA, RAIDAL PULSE IS PRESENT AND STRONG, FINGER TIPS ARE COOL BUT HAVE GOOD CAP REFIL. PT'S L/S COARSE T/O AND VERY DIM IN THE BASES. BT PRESENT AND HYPOACTIVE, ABD IS SOFT AND NONTENDER TO PALP. PT HAS NOT HAD A BM SINCE ADMIT, BOWEL CARE PROTOCOL STARTED. WILL CONTINUE TO MONITOR.
--- NOTE | 2019-03-06 18:03 | NUR ---
SHIFT SUMMARY. PT HAS BEEN CONFUSED OFF AND ON T/O THIS SHIFT. PT HAS MADE COMMENTS ABOUT HER BEING IN "THE [place]ER PARK" AND WANTING TO "GO BACK TO HER ROOM." PT IS EASILY RE-ORIENTED DURING THOSE TIMES. PT'S VS HAVE BEEN STABLE. PT HAS BEEN UP WITH SBA TO THE BSC. PT HAS NOT HAD A BM SINCE BEFORE ADMIT. BOWEL CARE HAS BEEN STARTED WITH NO RESULTS SO FAR. CALL LIGHT IN REACH, BED IS LOCKED AND LOW WITH BED ALARM ON WILL CONTINUE TO MONITOR UNTIL REPORT IS GIVEN TO ONCOMING RN.
--- NOTE | 2019-03-07 03:45 | NUR ---
SHIFT SUMMARY: PATIENT DEMONSTRATED INTERMITTENT MILD CONFUSION THE NIGHT PROGRESSED, BLOOD PRESSURES REMAINED IN THE 90'S SYSTOLIC, ALL VSS. BED LOW AND LOCKED WITH EXIT ALARM ON, CALL LIGHT WITHIN REACH.
[2019-03-07 05:55] LABS: Source, Urine Clean Catch
[2019-03-07 05:57] LABS: Blood, Urine 1+ (Neg); Glucose Qualitative, Urine Neg (Neg); Ketones, Urine 1+ (Neg); Leukocyte Esterase, Urine 1+ (Neg); Nitrite, Urine Neg (Neg); Protein, Urine 2+ (Neg); Urobilinogen, Urine 3+ (Normal)
[2019-03-07 06:07] LABS: Appearance, Urine Hazy (Clear); Bilirubin, Urine 1+ (Neg); Color, Urine Yellow (P-Yellow)
[2019-03-07 06:10] LABS: Bacteria Many /hpf; Red Blood Cells, Urine 0-2 /hpf (0-2); Squamous Epithelial Cells Few /hpf (Few)
[2019-03-07 06:26] LABS: Anion Gap 6 mmol/L (6-16); Blood Urea Nitrogen 11 mg/dL (8-24); Bun/Creatinine Ratio 20.4 (12.0-20.0); CO2, Blood 33 mmol/L (21-32); Calcium, Blood 8.5 mg/dL (8.5-10.1); Chloride, Blood 95 mmol/L (98-108); Creatinine, Blood 0.54 mg/dL (0.40-1.00); Glomerular Filtration Rate >60 (60-); Glucose, Blood 105 mg/dL (70-99); Potassium, Blood 3.7 mmol/L (3.5-5.5); Sodium, Blood 134 mmol/L (136-145)
--- NOTE | 2019-03-07 07:23 | NUR ---
ASSUMED CARE: PT SITTING UPRIGHT IN BED RECIEVING BREATHING TX AT THIS TIME. RT AT BEDSIDE. DR NAGEL HERE WRITING DC ORDERS. NO FURTHER NEEDS AT THIS TIME
--- NOTE | 2019-03-07 10:19 | NUR ---
PT AND GIVEN DC INSTRUCTIONS ABOUT FOLLOW UP APPOINTMENTS AND MEDICATION CHANGES. VERBALIZED UNDERSTANDING. IV DC'D WNL. DENIED FURTHER NEEDS OR CONCERNS. ESCORTED OUT VIA WHEEL CHAIR BY HOSPITAL STAFF
== END 2019-03-07 10:04 | disposition home or self-care (01) | DRG 292 ==
LOC: PCU 18:24 → ICUE 18:24 → PCU 18:32
PROVIDERS: Hospitalist; ADMIT Internal Medicine Cardiovascular Disease
DX: I50.9 Heart failure, unspecified (principal); Z68.1 Body mass index [BMI] 19.9 or less, adult; R64 Cachexia; E87.1 Hypo-osmolality and hyponatremia; I48.2 Chronic atrial fibrillation; I51.3 Intracardiac thrombosis, not elsewhere classified; J44.9 Chronic obstructive pulmonary disease, unspecified; K21.9 Gastro-esophageal reflux disease without esophagitis; B19.20 Unspecified viral hepatitis C without hepatic coma; F17.210 Nicotine dependence, cigarettes, uncomplicated; G89.29 Other chronic pain; I35.0 Nonrheumatic aortic (valve) stenosis; Z95.2 Presence of prosthetic heart valve; Z90.49 Acquired absence of other specified parts of digestive tract; K27.9 Peptic ulcer, site unspecified, unspecified as acute or chronic, without hemorrhage or perforation; K62.3 Rectal prolapse; M79.7 Fibromyalgia; D63.8 Anemia in other chronic diseases classified elsewhere
CPT/HCPCS: 36415; 80048; 81001; 83880; 84443; 85025; 85610; 85730; 87040; 87086; 94010; 94640; 94760; A9270; J1644; J1940; J2405

== ENCOUNTER 2019-03-09 15:08 | Emergency (ER) | payer OTHER ==
[~2019-03-09] VITALS: Ht 167.6 cm; Wt 7.3 kg
[2019-03-09 16:03] LABS: BASOPHILS ABSOLUTE AUTO 0.05 K/mm3 (0.00-0.23); BASOPHILS PERCENT AUTO 1 % (0-2); EOSINOPHILS ABSOLUTE AUTO 0.01 K/mm3 (0.00-0.68); EOSINOPHILS PERCENT AUTO 0 % (0-6); Hematocrit 28.2 % (33.0-51.0); Hemoglobin 9.2 g/dL (11.5-16.0); IMMATURE GRAN ABSOLUTE AUTO 0.06 K/mm3 (0.00-0.10); IMMATURE GRAN PERCENT AUTO 1 % (0-1); LYMPHOCYTES ABSOLUTE AUTO 0.82 K/mm3 (0.84-5.20); LYMPHOCYTES PERCENT AUTO 8 % (21-46); MONOCYTES ABSOLUTE AUTO 0.76 K/mm3 (0.16-1.47); MONOCYTES PERCENT AUTO 7 % (4-13); Mean Corpuscular HGB 24.6 pg (26.0-34.0); Mean Corpuscular HGB Conc 32.6 g/dL (31.5-36.5); Mean Corpuscular Volume 75 fL (80-100); Mean Platelet Volume 12.1 fL (9.1-12.4); NEUTROPHILS ABSOLUTE AUTO 9.25 K/mm3 (1.96-9.15); NEUTROPHILS PERCENT AUTO 85 % (41-73); NRBC Auto 3.7 /100 WBC (0.0-0.2); Platelet Count 183 K/mm3 (150-400); RDW Coefficient Variation 18.7 % (11.7-14.2); RDW Standard Deviation 44.3 fL (35.1-46.3); Red Blood Cell Count 3.74 M/mm3 (3.80-5.20); White Blood Cell Count 10.95 K/mm3 (4.00-11.30)
[2019-03-09 16:22] LABS: Alanine Aminotransfer (ALT/SGP 32 U/L (12-78); Albumin, Blood 2.9 g/dL (3.4-5.0); Albumin/Globulin Ratio 0.8 (0.8-1.8); Alk Phos 110 U/L (50-136); Anion Gap 8 mmol/L (6-16); Aspartate Aminotrans (AST/SGOT 45 U/L (12-37); Blood Urea Nitrogen 16 mg/dL (8-24); Bun/Creatinine Ratio 26.6 (12.0-20.0); CO2, Blood 29 mmol/L (21-32); Calcium, Blood 8.9 mg/dL (8.5-10.1); Chloride, Blood 93 mmol/L (98-108); Globulin, Blood 3.5 g/dL (2.2-4.0); Glomerular Filtration Rate >60 (60-); Glucose, Blood 110 mg/dL (70-99); Potassium, Blood 4.5 mmol/L (3.5-5.5); Sodium, Blood 130 mmol/L (136-145); Total Protein, Blood 6.4 g/dL (6.4-8.2); Troponin I 0.016 ng/mL (0.000-0.040)
[2019-03-09 16:29] LABS: Digoxin (Lanoxin) 0.78 ug/mL (0.80-2.00)
[2019-03-09] MEDS ORDERED: Carafate1 GM/10 ML PO (19:53)
[2019-03-09] MEDS ORDERED: ONDA4ODT MM (19:53)
== END 2019-03-09 20:07 | disposition home or self-care (01) ==
LOC: ER 15:08
PROVIDERS: Emergency Medicine
DX: K29.70 Gastritis, unspecified, without bleeding (principal); Z88.0 Allergy status to penicillin; Z88.1 Allergy status to other antibiotic agents; Z79.899 Other long term (current) drug therapy; J44.9 Chronic obstructive pulmonary disease, unspecified; I48.91 Unspecified atrial fibrillation; F17.210 Nicotine dependence, cigarettes, uncomplicated
CPT/HCPCS: 36415; 74018; 74177; 80053; 80162; 82271; 83690; 84484; 85025; 93005; 93010; 96361; 96374; 96374-59; 96375; 99284-25; C9113; J1200; J1630; J2405; J2550; J7030; Q9967

== ENCOUNTER 2019-03-13 12:10 | Emergency (ER) | payer OTHER ==
[~2019-03-13] VITALS: Ht 167.6 cm; Wt 59.0 kg
[~2019-03-13 12:10] MED LIST changes: +Carafate1 GM/10 ML PO
[2019-03-13 12:50] LABS: BASOPHILS ABSOLUTE AUTO 0.04 K/mm3 (0.00-0.23); BASOPHILS PERCENT AUTO 0 % (0-2); EOSINOPHILS ABSOLUTE AUTO 0.06 K/mm3 (0.00-0.68); EOSINOPHILS PERCENT AUTO 1 % (0-6); Hematocrit 31.4 % (33.0-51.0); Hemoglobin 10.5 g/dL (11.5-16.0); IMMATURE GRAN ABSOLUTE AUTO 0.04 K/mm3 (0.00-0.10); IMMATURE GRAN PERCENT AUTO 0 % (0-1); LYMPHOCYTES ABSOLUTE AUTO 1.34 K/mm3 (0.84-5.20); LYMPHOCYTES PERCENT AUTO 12 % (21-46); MONOCYTES ABSOLUTE AUTO 0.96 K/mm3 (0.16-1.47); MONOCYTES PERCENT AUTO 8 % (4-13); Mean Corpuscular HGB 24.5 pg (26.0-34.0); Mean Corpuscular HGB Conc 33.4 g/dL (31.5-36.5); Mean Corpuscular Volume 73 fL (80-100); NEUTROPHILS ABSOLUTE AUTO 9.01 K/mm3 (1.96-9.15); NEUTROPHILS PERCENT AUTO 79 % (41-73); NRBC ABSOLUTE 0.06 K/mm3 (0.00-0.02); NRBC Auto 0.5 /100 WBC (0.0-0.2); Platelet Count 144 K/mm3 (150-400); RDW Coefficient Variation 17.8 % (11.7-14.2); RDW Standard Deviation 43.7 fL (35.1-46.3); Red Blood Cell Count 4.28 M/mm3 (3.80-5.20); White Blood Cell Count 11.45 K/mm3 (4.00-11.30)
[2019-03-13 13:01] LABS: Mean Platelet Volume 10.9 fL (9.1-12.4)
[2019-03-13 13:06] LABS: Alanine Aminotransfer (ALT/SGP 37 U/L (12-78); Albumin, Blood 3.2 g/dL (3.4-5.0); Albumin/Globulin Ratio 0.9 (0.8-1.8); Alk Phos 124 U/L (50-136); Anion Gap 5 mmol/L (6-16); Aspartate Aminotrans (AST/SGOT 54 U/L (12-37); Bilirubin, Total 2.5 mg/dL (0.1-1.0); Blood Urea Nitrogen 4 mg/dL (8-24); Bun/Creatinine Ratio 9.4 (12.0-20.0); CO2, Blood 29 mmol/L (21-32); Calcium, Blood 8.5 mg/dL (8.5-10.1); Chloride, Blood 100 mmol/L (98-108); Creatinine, Blood 0.43 mg/dL (0.40-1.00); Globulin, Blood 3.4 g/dL (2.2-4.0); Glomerular Filtration Rate >60 (60-); Glucose, Blood 104 mg/dL (70-99); Sodium, Blood 134 mmol/L (136-145); Total Protein, Blood 6.6 g/dL (6.4-8.2)
[2019-03-13 13:07] LABS: Troponin I <0.015 ng/mL (0.000-0.040)
[2019-03-13] MEDS ORDERED: Lasix20 MG PO (15:55)
[2019-03-13] MEDS ORDERED: POTCHL20ER PO (15:55)
== END 2019-03-13 16:15 | disposition home or self-care (01) ==
LOC: ER 12:10
PROVIDERS: Emergency Medicine
DX: I50.9 Heart failure, unspecified (principal); E87.6 Hypokalemia; J43.9 Emphysema, unspecified; F17.210 Nicotine dependence, cigarettes, uncomplicated; Z79.899 Other long term (current) drug therapy; Z88.0 Allergy status to penicillin
CPT/HCPCS: 36415; 71046; 80053; 83880; 84484; 85025; 93005; 93010; 96374; 99284-25; J1940

== ENCOUNTER 2019-03-15 09:26 | Emergency (ER) | payer OTHER ==
[~2019-03-15] VITALS: Ht 167.6 cm; Wt 59.0 kg
[~2019-03-15 09:26] MED LIST changes: +Lasix20 MG PO; +POTCHL20ER PO
== END 2019-03-15 10:45 | disposition home or self-care (01) ==
LOC: ER 09:26
DX: K62.3 Rectal prolapse (principal); J43.9 Emphysema, unspecified; F17.210 Nicotine dependence, cigarettes, uncomplicated; Z88.0 Allergy status to penicillin; Z88.1 Allergy status to other antibiotic agents; Z79.899 Other long term (current) drug therapy; Z95.2 Presence of prosthetic heart valve
CPT/HCPCS: 99283

== ENCOUNTER 2019-03-18 08:09 | Emergency (ER) | payer OTHER ==
[~2019-03-18] VITALS: Ht 167.6 cm; Wt 59.0 kg
[2019-03-18 11:30] LABS: BASOPHILS ABSOLUTE AUTO 0.09 K/mm3 (0.00-0.23); BASOPHILS PERCENT AUTO 1 % (0-2); EOSINOPHILS PERCENT AUTO 1 % (0-6); Hematocrit 26.2 % (33.0-51.0); Hemoglobin 8.7 g/dL (11.5-16.0); IMMATURE GRAN ABSOLUTE AUTO 0.07 K/mm3 (0.00-0.10); IMMATURE GRAN PERCENT AUTO 1 % (0-1); LYMPHOCYTES ABSOLUTE AUTO 1.38 K/mm3 (0.84-5.20); LYMPHOCYTES PERCENT AUTO 14 % (21-46); MONOCYTES ABSOLUTE AUTO 1.08 K/mm3 (0.16-1.47); MONOCYTES PERCENT AUTO 11 % (4-13); Mean Corpuscular HGB 24.4 pg (26.0-34.0); Mean Corpuscular HGB Conc 33.2 g/dL (31.5-36.5); Mean Corpuscular Volume 73 fL (80-100); Mean Platelet Volume 11.6 fL (9.1-12.4); NEUTROPHILS ABSOLUTE AUTO 7.41 K/mm3 (1.96-9.15); NEUTROPHILS PERCENT AUTO 73 % (41-73); NRBC ABSOLUTE 0.03 K/mm3 (0.00-0.02); NRBC Auto 0.3 /100 WBC (0.0-0.2); Platelet Count 251 K/mm3 (150-400); RDW Coefficient Variation 16.6 % (11.7-14.2); RDW Standard Deviation 41.9 fL (35.1-46.3); Red Blood Cell Count 3.57 M/mm3 (3.80-5.20); White Blood Cell Count 10.13 K/mm3 (4.00-11.30)
[2019-03-18 11:49] LABS: Alanine Aminotransfer (ALT/SGP 28 U/L (12-78); Albumin, Blood 3.1 g/dL (3.4-5.0); Albumin/Globulin Ratio 0.9 (0.8-1.8); Alk Phos 127 U/L (50-136); Anion Gap 7 mmol/L (6-16); Aspartate Aminotrans (AST/SGOT 32 U/L (12-37); Bilirubin, Total 1.5 mg/dL (0.1-1.0); Blood Urea Nitrogen 8 mg/dL (8-24); Bun/Creatinine Ratio 17.5 (12.0-20.0); CO2, Blood 27 mmol/L (21-32); Calcium, Blood 8.8 mg/dL (8.5-10.1); Chloride, Blood 101 mmol/L (98-108); Creatinine, Blood 0.46 mg/dL (0.40-1.00); Globulin, Blood 3.4 g/dL (2.2-4.0); Glomerular Filtration Rate >60 (60-); Glucose, Blood 96 mg/dL (70-99); Potassium, Blood 4.1 mmol/L (3.5-5.5); Sodium, Blood 135 mmol/L (136-145); Total Protein, Blood 6.5 g/dL (6.4-8.2)
== END 2019-03-18 15:00 | disposition short-term general hospital (02) ==
LOC: ER 08:09
PROVIDERS: Physician Assistant
DX: K62.3 Rectal prolapse (principal); Z88.0 Allergy status to penicillin; Z88.1 Allergy status to other antibiotic agents; Z79.899 Other long term (current) drug therapy; I48.91 Unspecified atrial fibrillation; I50.9 Heart failure, unspecified; F17.210 Nicotine dependence, cigarettes, uncomplicated
CPT/HCPCS: 36415; 74018; 80053; 85025; 96372-59; 96374; 96375; 99285-25; J1170; J2270

== ENCOUNTER 2019-04-06 11:42 | Emergency (ER) | payer OTHER ==
[~2019-04-06] VITALS: Ht 170.2 cm; Wt 72.6 kg
[2019-04-06] MEDS ORDERED: ERYT1OIN LEFTEYE (12:38)
== END 2019-04-06 12:42 | disposition home or self-care (01) ==
LOC: ER 11:42
DX: S05.02XA Injury of conjunctiva and corneal abrasion without foreign body, left eye, initial encounter (principal); X58.XXXA Exposure to other specified factors, initial encounter; Z88.0 Allergy status to penicillin; Z88.1 Allergy status to other antibiotic agents; Z79.899 Other long term (current) drug therapy; I50.9 Heart failure, unspecified; I48.91 Unspecified atrial fibrillation; J44.9 Chronic obstructive pulmonary disease, unspecified; F17.210 Nicotine dependence, cigarettes, uncomplicated
CPT/HCPCS: 99282

== ENCOUNTER 2019-04-13 00:18 | Emergency (ER) | payer OTHER ==
[~2019-04-13 00:18] MED LIST changes: +ERYT1OIN LEFTEYE
[2019-04-13] MEDS ORDERED: HYDMOR2 PO (14:22)
[2019-04-13] MEDS ORDERED: ATEN25 PO (14:23)
[2019-04-13] MEDS ORDERED: FURO40 PO (14:23)
[2019-04-13] MEDS ORDERED: BUSP5 PO (14:23)
[2019-04-13] MEDS ORDERED: XARELTO20 MG PO (14:24)
[2019-04-13] MEDS ORDERED: Amlodipine Besy10 MG PO (14:24)
[2019-04-13] MEDS ORDERED: REMERON15 MG PO (14:25)
[2019-04-13] MEDS ORDERED: STIOLTO RESPIMAT4 GM INH (14:25)
[2019-04-13] MEDS ORDERED: DILTIAZEM 24HR180 M1 PO (14:27)
[2019-04-13] MEDS ORDERED: K-TAB ER20 MEQ PO (14:27)
[2019-04-13] MEDS ORDERED: Prilosec Otc20 MG PO (14:28)
[2019-04-13] MEDS ORDERED: ALBU90OI61 INH (14:30)
[2019-04-13] MEDS ORDERED: ERYT1OIN LEFTEYE (15:29)
== END 2019-04-13 01:28 | disposition left against medical advice (07) ==
LOC: ER 00:18
DX: Z53.21 Procedure and treatment not carried out due to patient leaving prior to being seen by health care provider (principal)

== ENCOUNTER 2019-04-13 12:29 | Inpatient (IN) | payer OTHER ==
[~2019-04-13] VITALS: Ht 167.6 cm; Wt 72.0 kg
[2019-04-13 13:11] LABS: Alanine Aminotransfer (ALT/SGP 16 U/L (12-78); Albumin, Blood 2.7 g/dL (3.4-5.0); Albumin/Globulin Ratio 0.8 (0.8-1.8); Alk Phos 120 U/L (50-136); Anion Gap 6 mmol/L (6-16); Aspartate Aminotrans (AST/SGOT 31 U/L (12-37); Bilirubin, Total 1.8 mg/dL (0.1-1.0); Blood Urea Nitrogen 11 mg/dL (8-24); CO2, Blood 27 mmol/L (21-32); Calcium, Blood 7.9 mg/dL (8.5-10.1); Chloride, Blood 94 mmol/L (98-108); Globulin, Blood 3.3 g/dL (2.2-4.0); Glomerular Filtration Rate >60 (60-); Glucose, Blood 107 mg/dL (70-99); Potassium, Blood 3.8 mmol/L (3.5-5.5); Sodium, Blood 127 mmol/L (136-145); Troponin I 0.024 ng/mL (0.000-0.040)
[2019-04-13 13:26] LABS: BASOPHILS ABSOLUTE AUTO 0.04 K/mm3 (0.00-0.23); BASOPHILS PERCENT AUTO 1 % (0-2); EOSINOPHILS ABSOLUTE AUTO 0.03 K/mm3 (0.00-0.68); EOSINOPHILS PERCENT AUTO 0 % (0-6); Hematocrit 18.6 % (33.0-51.0); IMMATURE GRAN ABSOLUTE AUTO 0.06 K/mm3 (0.00-0.10); IMMATURE GRAN PERCENT AUTO 1 % (0-1); LYMPHOCYTES ABSOLUTE AUTO 1.29 K/mm3 (0.84-5.20); LYMPHOCYTES PERCENT AUTO 16 % (21-46); MONOCYTES PERCENT AUTO 10 % (4-13); Mean Corpuscular HGB 22.7 pg (26.0-34.0); Mean Corpuscular HGB Conc 32.3 g/dL (31.5-36.5); Mean Corpuscular Volume 71 fL (80-100); NEUTROPHILS ABSOLUTE AUTO 5.68 K/mm3 (1.96-9.15); NEUTROPHILS PERCENT AUTO 72 % (41-73); NRBC ABSOLUTE 0.26 K/mm3 (0.00-0.02); NRBC Auto 3.3 /100 WBC (0.0-0.2); RDW Coefficient Variation 15.9 % (11.7-14.2); RDW Standard Deviation 39.1 fL (35.1-46.3); Red Blood Cell Count 2.64 M/mm3 (3.80-5.20)
[2019-04-13 13:29] LABS: Platelet Count 2 K/mm3 (150-400)
[2019-04-13] MEDS ORDERED: HYDMOR2 PO (14:22)
[2019-04-13] MEDS ORDERED: ATEN25 PO (14:23)
[2019-04-13] MEDS ORDERED: FURO40 PO (14:23)
[2019-04-13] MEDS ORDERED: BUSP5 PO (14:23)
[2019-04-13] MEDS ORDERED: Amlodipine Besy10 MG PO (14:24)
[2019-04-13] MEDS ORDERED: XARELTO20 MG PO (14:24)
[2019-04-13] MEDS ORDERED: REMERON15 MG PO (14:25)
[2019-04-13] MEDS ORDERED: STIOLTO RESPIMAT4 GM INH (14:25)
[2019-04-13] MEDS ORDERED: DILTIAZEM 24HR180 M1 PO (14:27)
[2019-04-13] MEDS ORDERED: K-TAB ER20 MEQ PO (14:27)
[2019-04-13] MEDS ORDERED: Prilosec Otc20 MG PO (14:28)
[2019-04-13] MEDS ORDERED: ALBU90OI61 INH (14:30)
[2019-04-13] MEDS ORDERED: ERYT1OIN LEFTEYE (15:29)
[2019-04-13 15:58] LABS: BASOPHILS ABSOLUTE AUTO 0.04 K/mm3 (0.00-0.23); BASOPHILS PERCENT AUTO 1 % (0-2); EOSINOPHILS ABSOLUTE AUTO 0.08 K/mm3 (0.00-0.68); EOSINOPHILS PERCENT AUTO 1 % (0-6); Hematocrit 18.2 % (33.0-51.0); IMMATURE GRAN ABSOLUTE AUTO 0.04 K/mm3 (0.00-0.10); IMMATURE GRAN PERCENT AUTO 1 % (0-1); LYMPHOCYTES ABSOLUTE AUTO 1.32 K/mm3 (0.84-5.20); LYMPHOCYTES PERCENT AUTO 17 % (21-46); MONOCYTES ABSOLUTE AUTO 0.85 K/mm3 (0.16-1.47); MONOCYTES PERCENT AUTO 11 % (4-13); Mean Corpuscular HGB Conc 32.4 g/dL (31.5-36.5); Mean Corpuscular Volume 71 fL (80-100); NEUTROPHILS ABSOLUTE AUTO 5.55 K/mm3 (1.96-9.15); NEUTROPHILS PERCENT AUTO 70 % (41-73); NRBC ABSOLUTE 0.26 K/mm3 (0.00-0.02); NRBC Auto 3.3 /100 WBC (0.0-0.2); RDW Standard Deviation 39.7 fL (35.1-46.3); Red Blood Cell Count 2.56 M/mm3 (3.80-5.20); White Blood Cell Count 7.88 K/mm3 (4.00-11.30)
[2019-04-13 16:02] LABS: Hemoglobin 5.9 g/dL (11.5-16.0)
[2019-04-13 16:03] LABS: Platelet Count 1 K/mm3 (150-400)
[2019-04-13 16:05] LABS: International Normalized Ratio 1.61; Prothrombin Time Results 16.3 Sec (9.7-11.5)
--- NOTE | 2019-04-13 17:30 | NUR ---
NEW PT FROM ED. SPOKE WITH DR QUIROGA REGARDING HR AND ASKED IF FLUIDS OR CARDIZEM GTT NEEDED. DR ORDERED CARDIZEM GTT AND STATED THAT FLUIDS NOT NEEDED DUE TO FEELING SHE IS ALREADY FLUID OVERLOADED FROM CHF WITH PERIPHERAL EDEMA AND DISTENDED NECK VEINS. LEAD BUSINESS ANALYST AWARE THAT SECOND IV SITE NEEDED
--- NOTE | 2019-04-13 19:14 | NUR ---
RN CAME INTO ROOM TO USE ULTRASOUND TO PLACE NEW IV FOR CARDIZEM GTT DUE TO BLOOD RUNNING THROUGH EXISTENT IV. ABOUT 10 MINUTE LATER, NEW IV INFILTRATED. NURSE FIRST ASSIST AT BEDSIDE NOW ATTEMPTING NEW SITE. FIRST UNIT OF BLOOD FLUSHING, NIGHT RN AWARE OF SECOND UNIT AND UNIT OF PLATELETS NEEDED. PT CONTINUES TO ASK TO BE ABLE TO GO OUTSIDE TO SMOKE. MULTIPLE RNS HAVE STATED THAT THIS WOULD NOT BE SAFE GIVEN INCREASED HR AND LOW H AND H AND PLATELETS.
--- NOTE | 2019-04-13 23:02 | NUR ---
PROVIDER DR CHOWDARY CALLED AND UPDATED ON PT CONDITION. HR AFIB 155 CONTINUING DESPITE RATE OF 15 CARDIZEM GTT. UPDATED ON BLOOD TRANSFUSION AND BP. DISCUSSED THAT THIS PT IS ONE OF DR VAUGHAN AND THAT HER MEDICATION REGIMEN IS FREQUNETLY ADJUSTED PER THE EMAR. DR CHOWDARY ORDERS 0.25 LANOXIN ORALLY X1 DOSE.
--- NOTE | 2019-04-14 00:21 | NUR ---
PROVIDER DR GAY NOTIFIED OF PT'S ANXIOUS STATE. PT STATING "IF I CAN'T GET TO SLEEP, I AM GOING TO LEAVE." HIS NURSE DISCUSSED WITH PT REGARDING HER CURRENT HEALTH SITUATION AND ADVISED AGAINST IT. DISCUSSED OTHER OPTIONS TO GET TO SLEEP. DR GAY ORDERS 5MG MELATONIN.
[2019-04-14 01:45] LABS: BASOPHILS ABSOLUTE AUTO 0.05 K/mm3 (0.00-0.23); BASOPHILS PERCENT AUTO 1 % (0-2); EOSINOPHILS ABSOLUTE AUTO 0.09 K/mm3 (0.00-0.68); EOSINOPHILS PERCENT AUTO 1 % (0-6); Hematocrit 24.3 % (33.0-51.0); IMMATURE GRAN ABSOLUTE AUTO 0.06 K/mm3 (0.00-0.10); IMMATURE GRAN PERCENT AUTO 1 % (0-1); LYMPHOCYTES ABSOLUTE AUTO 1.33 K/mm3 (0.84-5.20); LYMPHOCYTES PERCENT AUTO 16 % (21-46); MONOCYTES ABSOLUTE AUTO 0.77 K/mm3 (0.16-1.47); MONOCYTES PERCENT AUTO 9 % (4-13); Mean Corpuscular HGB 24.4 pg (26.0-34.0); Mean Corpuscular HGB Conc 32.9 g/dL (31.5-36.5); NEUTROPHILS ABSOLUTE AUTO 5.93 K/mm3 (1.96-9.15); NEUTROPHILS PERCENT AUTO 72 % (41-73); NRBC ABSOLUTE 0.25 K/mm3 (0.00-0.02); RDW Coefficient Variation 18.4 % (11.7-14.2); RDW Standard Deviation 48.5 fL (35.1-46.3); Red Blood Cell Count 3.28 M/mm3 (3.80-5.20); White Blood Cell Count 8.23 K/mm3 (4.00-11.30)
[2019-04-14 01:46] LABS: Mean Corpuscular Volume 74 fL (80-100)
[2019-04-14 01:47] LABS: Platelet Count 2 K/mm3 (150-400)
[2019-04-14 02:02] LABS: Anion Gap 8 mmol/L (6-16); Blood Urea Nitrogen 10 mg/dL (8-24); Bun/Creatinine Ratio 20.8 (12.0-20.0); CO2, Blood 27 mmol/L (21-32); Calcium, Blood 7.8 mg/dL (8.5-10.1); Chloride, Blood 95 mmol/L (98-108); Creatinine, Blood 0.48 mg/dL (0.40-1.00); Glomerular Filtration Rate >60 (60-); Glucose, Blood 104 mg/dL (70-99); Potassium, Blood 3.1 mmol/L (3.5-5.5); Sodium, Blood 130 mmol/L (136-145)
--- NOTE | 2019-04-14 02:22 | NUR ---
PROVIDER VICTOR HUGO NOTIFIED OF CRITICAL PLATELT LEVEL OF 2. DISCUSSED WITH REGARDING CURRENT CONDITION OF HR CONTINUING IN THE 150'S DESPITE CARDIZEN GTT AND ORAL LANOXIN. ALSO DISCUSSED PT'S INABILITY TO FALL ASLEEP AND WANTING TO LEAVE AM IF SHE CAN'T SLEEP. ORDERS PLACED FOR 2U PLATELETS, IV METOPROLOL, AND AMBIEN.
--- NOTE | 2019-04-14 02:48 | NUR ---
PROVIDER [facility] CALLED THIS NURSE STATING THERE ARE ONLY TWO UNITS OF PLATELETS LEFT IN THE FACILITY. ASKED IF DR WOULD BE WILLING TO WAIT FOR NEXT PLATELET COUNT TO GIVE SECOND UNIT OF PLATELETS IF NEEDED. DR GAY CALLED REGARDING THIS. DECISION MADE TO GIVE FIRST U PLATELETS NOW AND WAIT FOR NEXT LAB DRAW TO DETERMINE NEED FOR 2ND UNIT. ALSO ASKED REGARDING PT'S POTASSIUM OF 3.1. 40MEQ ORAL DOSE ORDERED.
--- NOTE | 2019-04-14 05:33 | NUR ---
PROVIDER UPDATED DR GAY ON PT'S CONTINUING HR IN THE 150'S DESPITE CARDIZEM GTT 15, LANOXIN, AND IV METOPROLOL PUSH. STATES THIS IS OKAY FOR NOW AND TO CONTINUE MONITORING.
[2019-04-14 05:47] LABS: BASOPHILS ABSOLUTE AUTO 0.05 K/mm3 (0.00-0.23); BASOPHILS PERCENT AUTO 1 % (0-2); EOSINOPHILS ABSOLUTE AUTO 0.09 K/mm3 (0.00-0.68); EOSINOPHILS PERCENT AUTO 1 % (0-6); Hematocrit 24.8 % (33.0-51.0); Hemoglobin 8.2 g/dL (11.5-16.0); IMMATURE GRAN ABSOLUTE AUTO 0.06 K/mm3 (0.00-0.10); IMMATURE GRAN PERCENT AUTO 1 % (0-1); LYMPHOCYTES ABSOLUTE AUTO 1.26 K/mm3 (0.84-5.20); LYMPHOCYTES PERCENT AUTO 14 % (21-46); MONOCYTES ABSOLUTE AUTO 0.83 K/mm3 (0.16-1.47); MONOCYTES PERCENT AUTO 9 % (4-13); Mean Corpuscular HGB 24.3 pg (26.0-34.0); Mean Corpuscular HGB Conc 33.1 g/dL (31.5-36.5); Mean Corpuscular Volume 73 fL (80-100); NEUTROPHILS ABSOLUTE AUTO 6.69 K/mm3 (1.96-9.15); NEUTROPHILS PERCENT AUTO 75 % (41-73); NRBC ABSOLUTE 0.45 K/mm3 (0.00-0.02); RDW Coefficient Variation 17.9 % (11.7-14.2); RDW Standard Deviation 45.8 fL (35.1-46.3); Red Blood Cell Count 3.38 M/mm3 (3.80-5.20); White Blood Cell Count 8.98 K/mm3 (4.00-11.30)
--- NOTE | 2019-04-14 05:48 | NUR ---
END OF SHIFT SUMMARY SEE ALL PROVIDER NOTES. HAVE BEEN ON THE PHONE WITH PROVIDERS CONSISTENTLY THROUGHOUT THE NIGHT. PT IS AXO. HAS RECEIVED A TOTAL OF 2 UNITS OF PLATELETS AND 2 UNITS OF PRBC'S. PLATELETS CONTINUE TO REMAIN CRITICALLY LOW, HGB HAS RISEN TO ACCEPTABLE LEVEL AT THIS TIME. PT REMAINS IN AFIB WITH HR 150'S DESPITE CARDIZEM GTT, PRN ONE TIME LANOXIN, AND PRN ONE TIME IV METOPROLOL. CURRENTLY WE ARE CONTINUING TO MONITOR THERE ARE NO NEW ORDERS FROM PROVIDERS. PT'S BP HAS WITHSTOOD THESE CARDIAC MEDICATIONS. PT HAS THREATENED TO LEAVE AMA MULTIPLE TIMES DUE TO NOT BEING ABLE TO SLEEP. SEE NOTES. PT HAS BEEN TO BSC MULTIPLE TIMES THIS SHIFT. PT HAS BEEN CONVINCED TO WHY SHE SHOULD NOT LEAVE THE HOSPITAL FOR THE TIME BEING. THIS PATIENT HAS REQUIRED MUCH OF THIS NURSES TIME. PT USES CALL LIGHT APPROPRIATELY. WITHIN REACH. BED IN LOWEST POSITION. WILL CONTINUE TO MONITOR PT UNTIL SHIFT CHANGE.
[2019-04-14 05:58] LABS: Platelet Count 13 K/mm3 (150-400)
--- NOTE | 2019-04-14 07:27 | NUR ---
ASSUMED CARE: PT SITTING ON SIDE OF BED. TELE SHOWS AFIB IN 120S-150S. CARDIZEM GTT AT 15 ML/HR. ASYMPTOMATIC
--- NOTE | 2019-04-14 10:20 | NUR ---
DR QUIROGA CAME TO SEE PT AND AWARE THAT SHE HAS BEEN UNRESPONSIVE TO CARDIZEM GTT AT 15/HR AND ORAL MEDS HAVE BEEN GIVEN. DR STATES OK TO INCREASE CARDIZEM TO 20ML/HR WHILE PCU STATUS.
--- NOTE | 2019-04-14 10:25 | NUR ---
PT CONTINUES TO ASK TO GO OUT TO SMOKE. DR QUIROGA SPOKE TO PT ABOUT NICOTINE PATCH WHICH PT REFUSED.
--- NOTE | 2019-04-14 14:14 | NUR ---
Echocardiogram completed.
--- NOTE | 2019-04-14 18:45 | NUR ---
SHIFT SUMMARY: PT RESTING QUIETLY IN BED, CARDIZEM GTT RUNNING AT 10MLS/HR. HR BETWEEN 90S AND 120S. O2 AT 4L, SATTING MID 90S. CONFUSED AT TIMES. CONTINUES TO ASK TO SMOKE BUT REFUSES NICOTINE PATCH. MEDICATED X2 FOR PAIN. NO FURTHER NEEDS AT THIS TIME
[2019-04-15 04:35] LABS: BASOPHILS ABSOLUTE AUTO 0.05 K/mm3 (0.00-0.23); BASOPHILS PERCENT AUTO 1 % (0-2); EOSINOPHILS ABSOLUTE AUTO 0.02 K/mm3 (0.00-0.68); EOSINOPHILS PERCENT AUTO 0 % (0-6); Hematocrit 24.2 % (33.0-51.0); Hemoglobin 7.9 g/dL (11.5-16.0); IMMATURE GRAN ABSOLUTE AUTO 0.13 K/mm3 (0.00-0.10); IMMATURE GRAN PERCENT AUTO 1 % (0-1); LYMPHOCYTES ABSOLUTE AUTO 1.35 K/mm3 (0.84-5.20); LYMPHOCYTES PERCENT AUTO 15 % (21-46); MONOCYTES ABSOLUTE AUTO 0.87 K/mm3 (0.16-1.47); MONOCYTES PERCENT AUTO 9 % (4-13); Mean Corpuscular HGB 24.5 pg (26.0-34.0); Mean Corpuscular HGB Conc 32.6 g/dL (31.5-36.5); Mean Corpuscular Volume 75 fL (80-100); NEUTROPHILS ABSOLUTE AUTO 6.88 K/mm3 (1.96-9.15); NEUTROPHILS PERCENT AUTO 74 % (41-73); NRBC ABSOLUTE 0.65 K/mm3 (0.00-0.02); RDW Coefficient Variation 18.8 % (11.7-14.2); RDW Standard Deviation 49.1 fL (35.1-46.3); Red Blood Cell Count 3.23 M/mm3 (3.80-5.20)
[2019-04-15 04:40] LABS: Platelet Count 4 K/mm3 (150-400)
[2019-04-15 04:52] LABS: Anion Gap 9 mmol/L (6-16); BAND PERCENT MAN 1 % (0-8); BASOPHILS PERCENT MAN 0 % (0-2); Blood Urea Nitrogen 20 mg/dL (8-24); Bun/Creatinine Ratio 27.6 (12.0-20.0); CO2, Blood 25 mmol/L (21-32); Chloride, Blood 95 mmol/L (98-108); Creatinine, Blood 0.72 mg/dL (0.40-1.00); EOSINOPHILS PERCENT MAN 0 % (0-6); Glomerular Filtration Rate >60 (60-); Glucose, Blood 77 mg/dL (70-99); LYMPHOCYTES PERCENT MAN 14 % (21-46); METAMYELOCYTE ABSOLUTE MAN 0.09 K/mm3 (0.00-0.00); METAMYELOCYTE PERCENT MAN 1 % (0-0); MONOCYTES ABSOLUTE MAN 0.27 K/mm3 (0.16-1.47); MONOCYTES PERCENT MAN 3 % (4-13); NEUTROPHILS ABSOLUTE MAN 7.62 K/mm3 (1.96-9.15); Potassium, Blood 4.3 mmol/L (3.5-5.5); SEG NEUTROPHILS PERCENT MAN 81 % (41-73); Sodium, Blood 129 mmol/L (136-145); TOTAL CELLS COUNTED 100
--- NOTE | 2019-04-15 04:56 | NUR ---
PROVIDER DR GAY NOTIFIED OF PLATELET LEVEL 4 AND HGB 7.9. NO NEW ORDERS AT THIS TIME.
--- NOTE | 2019-04-15 05:40 | NUR ---
END OF SHIFT SUMMARY PT ALERT, AT TIMES NOT ORIENTED. PT HAS BEEN VERY AGITATED WITH STAFF T/O THE NIGHT. CONTINUES TO THREATEN TO LEAVE. AT ONE POINT, PT WAS EVEN BEING HOSTILE TO . PT CONVINCED TO STAY BUT THIS HAS BEEN A VERY DIFFICULT TO PERSUADE PATIENT TO HOW CRITICAL HER HEALTH IS CURRENTLY. PT HAS BEEN PARANOID OF STAFF, , AND TREATMENTS AT TIMES. PT SATES TAHT SHE STILL HAS NOT SLEPT DESPITE THIS NURSE VIEWING THE PATIENT RESTING WITH HER EYES CLOSED, SNORING. SIDE RAILS UP AND BED ALARM ON DUE TO PT'S RESTLESNESS. STAFF HAVE BEEN MONITORING PT CLOSELY FOR ANY MORE SIGNS OF MENTATION CHANGE. HAVE LOOKED INTO PAST MEDICAL HISTORY FOR ANY CLUE TO WHAT THIS DELERIOUS STATE COULD BE FROM. PT HAS SLEPT AND BEEN QUIET AND CALM SINCE 0400. REMAINS IN ROOM SLEEPING IN RECLINER. CARDIZEM GTT CONTINUES @5, AFIB RATE 110'S. BP REMAINS STABLE. PLATELET COUNT REMIANS CRITICALLY LOW. HGB HAS DECREASED WELL. SEE PROVIDER NOTE. CALL LIGHT WITHIN REACH. WILL CONTINUE TO MONITOR PT UNTIL SHIFT CHANGE.
--- NOTE | 2019-04-15 11:36 | NUR ---
pt laying in bed awake a/ox3, forgetful, thoughts seem a bit disjointed, she is calm at this time, lungs are clear t/o, resp even and unlabored, no cough noted, hrirr, tele in place running afib per monitor, see strip, 2+ edema noted to b/l le, ppp+1, cap refill <3sec, vs stable, afebrile, iv site to mario is clear and patent, btx4, abd flat soft nontender, voids without diff, skin c/w/d, maew, polly, call light in reach.
--- NOTE | 2019-04-15 14:03 | NUR ---
pt continually talking about going home, Dr. Mota was in to see her, he ordered b/l le duplex, no further changes, spouce in to see her. b/p continues to run in the 's. call light in reach.
--- NOTE | 2019-04-15 17:55 | NUR ---
pt is doing ok, b/p last check was 110. heart rate goes up to 130's when she gets up, she continues on cardizem gtt, this is turned up to 10 at this time. no complaints at this time, no further changes at this time, call light in reach.
[2019-04-15 20:21] LABS: Stool Occult Blood Guaiac 1 Pos (Neg)
--- NOTE | 2019-04-16 00:02 | NUR ---
ASSUMED CARE OF PATIENT AT APPROXIMATELY 1910 FROM BELTRAN Stewart RN. PATIENT ALERT AND ORIENTED X4 AT START OF SHIFT; FORGETFUL AT TIMES; PATIENT REPORTED WHEN THIS RN WAS GETTING MIDNIGHT VS THAT SHE WAS GOING TO GO OUT BACK AND SMOKE; PATIENT EASILY REORIENTED. PATIENT DENIES NUMBNESS, TINGLING, DIZZINESS AND NAUSEA. SBA TO BEDSIDE COMMODE. PATIENT REPORTED PAIN IN HER CHEST THAT SHE REPORTS IS PRESSURE; PATIENT REPORTS HAS HAD THIS PAIN FOR PAST THREE WEEKS AND SHE REPORTED PAIN TO TWO DOCTORS TODAY. PATIENT REFUSES TYELNOL; PATIENTS BLOOD PRESSURE WAS LOW EARLIER TODAY; DILAUDID ORDERED; CALLED [facility]; ORDERS RECIEVED. AFIB W/ A RATE IN 120-130'S; CARDIZEM GTT AT 10ML/HR. OXYGEN SATURATION ABOVE 90% ON 1LPM VIA NC AT START OF SHIFT; RA CURRENTLY. PATIENT REPORTS SHE WEARS 2LPM VIA NC AT [facility]. PATIENT REPORTS THAT SHE WANTS TO GO HOME TOMORROW. PATIENT REMOVED SCDS; REPORTS NOT ABLE TO SLEEP WITH THEM ON. PATIENT CURRENTLY RESTING IN BED; CALL LIGHT IN REACH; BED IN LOWEST POSISTION; BED ALARM ON; WILL CONTINUE TO MONITOR AND ASSESS UNTIL END OF SHIFT.
--- NOTE | 2019-04-16 05:15 | NUR ---
CUTTER MACHINE CALLED TO REPORT THAT PATIENT HAD PULLED IV; THIS RN WAS IN ANOTHER PATIENTS ROOM. PCU RECRUITING CONSULTANT DONELL Stewart WENT INTO ROOM AND REPORTED PATIENT HAD LOST AMOUNT OF BLOOD; RECRUITING CONSULTANT CALLED DR. GAY FOR STAT CBC; CALLED ICU CHARGE TO REQUEST IV PLACEMENT; PATIENT HARD IV START. WILL CONTINUE TO MONITOR AND ASSESS UNTIL END OF SHIFT.
[2019-04-16 05:43] LABS: BASOPHILS ABSOLUTE AUTO 0.04 K/mm3 (0.00-0.23); BASOPHILS PERCENT AUTO 0 % (0-2); EOSINOPHILS ABSOLUTE AUTO 0.04 K/mm3 (0.00-0.68); EOSINOPHILS PERCENT AUTO 0 % (0-6); Hematocrit 27.3 % (33.0-51.0); Hemoglobin 8.8 g/dL (11.5-16.0); IMMATURE GRAN ABSOLUTE AUTO 0.08 K/mm3 (0.00-0.10); IMMATURE GRAN PERCENT AUTO 1 % (0-1); LYMPHOCYTES ABSOLUTE AUTO 1.09 K/mm3 (0.84-5.20); LYMPHOCYTES PERCENT AUTO 10 % (21-46); MONOCYTES ABSOLUTE AUTO 0.87 K/mm3 (0.16-1.47); MONOCYTES PERCENT AUTO 8 % (4-13); Mean Corpuscular HGB 24.2 pg (26.0-34.0); Mean Corpuscular HGB Conc 32.2 g/dL (31.5-36.5); Mean Corpuscular Volume 75 fL (80-100); NEUTROPHILS ABSOLUTE AUTO 8.67 K/mm3 (1.96-9.15); NEUTROPHILS PERCENT AUTO 80 % (41-73); NRBC ABSOLUTE 0.57 K/mm3 (0.00-0.02); NRBC Auto 5.3 /100 WBC (0.0-0.2); RDW Coefficient Variation 19.9 % (11.7-14.2); RDW Standard Deviation 51.5 fL (35.1-46.3); Red Blood Cell Count 3.63 M/mm3 (3.80-5.20); White Blood Cell Count 10.79 K/mm3 (4.00-11.30)
[2019-04-16 05:49] LABS: Platelet Count 2 K/mm3 (150-400)
--- NOTE | 2019-04-16 06:12 | NUR ---
PATIENT CLEANED UP AFTER PULLING IV; VSS; NEW IV STARTED BY PROSTHETIC AIDE; H/H IMPROVED; PLATLET COUNT DOWN TO 2 FROM 4; CALL PLACED TO DR. GAY; NO NEW ORDERS. PATIENT CALLED AT HOME. PATIENT SLEPT ABOUT 2 HOURS. NO OTHER ACUTE CHANGES TO REPORT. WILL CONTINUE TO MONITOR AND ASSESS UNTIL END OF SHIFT.
--- NOTE | 2019-04-16 07:31 | NUR ---
PER TELE MONITOR AT 0708 PT A-FIB AVERAGING IN 90'S, AT 0710 TITRATED PT DOWN TO CARDIZEM GTT 5MG/HR. CURRENTLY TELE REPORTS HR AVERAGING IN 130'S. WILL CHECK VITALS AND TITRATE NEEDED.
--- NOTE | 2019-04-16 08:56 | NUR ---
DR SUH IN TO SEE PATIENT, CLARIFIED MEDICATION ORDERS AND LS/CARDIAC CONTROL. NEW ORDERS ENTERED.
--- NOTE | 2019-04-16 14:40 | NUR ---
NOTIFIED DR SUH OF PT HEART RATE/BP AND CARDIZEM DRIP, DR TO PLACE ORDERS. CONTIUNE WITH DRIP TITRATE OFF IF SPB <90. WILL CONTINUE TO MONITOR.
[2019-04-16 16:12] LABS: Source, Urine Catheter
[2019-04-16 16:18] LABS: Bilirubin, Urine Neg (Neg); Blood, Urine Neg (Neg); Glucose Qualitative, Urine Neg (Neg); Ketones, Urine Neg (Neg); Leukocyte Esterase, Urine 1+ (Neg); Nitrite, Urine Neg (Neg); Protein, Urine 1+ (Neg); Specific Gravity, Urine 1.015 (1.003-1.022); Urobilinogen, Urine 3+ (Normal)
[2019-04-16 16:24] LABS: Appearance, Urine Clear (Clear); Color, Urine Yellow (P-Yellow)
[2019-04-16 16:25] LABS: Red Blood Cells, Urine 0-2 /hpf (0-2); White Blood Cells, Urine 0-2 /hpf (0-5)
[2019-04-16 16:26] LABS: Bacteria Few /hpf; Squamous Epithelial Cells Rare /hpf (Few)
--- NOTE | 2019-04-16 17:58 | NUR ---
SHIFT SUMMARY PT A&Ox4, ANXIOUS BUT COOPERTIAVE WITH CARE. FORGETFUL AT TIMES. PT RESTING IN BED DURING SHIFT, UP WITH SBA TO BSC. PT REPORTS PAIN, DENIES NEEDS FOR MEDICATION. PT SOB WITH EXERTION, >92% ON RA, LS COARSE/DIM BASES. PT WEARS 2L O2 AT NOC AT HOME. PT DENIES NAUSEA, NO EMESIS NOTED DURING SHIFT. PT HAS BEEN UP TO BSC FREQUENTLY, AT TIMES WITH NO URINE OUT PUT, BLADDER SCAN POST VOID AT >400cc, DR QUIROGA NOTIFIED, STRAIGHT CATH PER ORDER AND UA SENT. PT CONTINUES TO BE ON CARDIZEM GTT AT 5MG/HR AND STARTED ON IV DIGOXIN AND PO CARDIZEM AND ATENOLOL. PER TELE HR AVE FROM 90-130'S T/O SHIFT. SPB IN 90'S. PLATLET AT 2, STARTED DECARON PER ORDERS. OTHER VSS. NO OTHER ACUTE CHANGES NOTED DURING SHIFT. WILL CONTINUE TO MONITOR. UNITL REPORT GIVEN TO ONCOMING RN.
--- NOTE | 2019-04-17 00:51 | NUR ---
UPDATE PATIENT PULLED HER IV OUT AFTER IT GOT CAUGHT ON HER BLANKETS IN BED. PATIENT REFUSING TO HAVE A NEW ONE PLACED AT THIS TIME. EDUCATION PROVIDED TO PATIENT ON IMPORTANCE OF HAVING AN IV IN PLACED AND THE NEED FOR HER IV MEDICATIONS. PATIENT EDUCATED THAT SEVERAL IMPORTANT MEDICATIONS FOR HER HEART RATE WERE IV. PATIENT CONTINUES TO REFUSE SATING, "MAYBE IN THE MORNING." WILL CONTINUE TO ATTEMPT TO PLACE IV THROUGHOUT THE NIGHT.
--- NOTE | 2019-04-17 04:00 | NUR ---
UPDATE PATIENT CONTINUES TO REFUSE IV PLACEMENT
[2019-04-17 04:06] LABS: BASOPHILS ABSOLUTE AUTO 0.01 K/mm3 (0.00-0.23); BASOPHILS PERCENT AUTO 0 % (0-2); EOSINOPHILS PERCENT AUTO 0 % (0-6); Hematocrit 27.4 % (33.0-51.0); Hemoglobin 8.8 g/dL (11.5-16.0); IMMATURE GRAN ABSOLUTE AUTO 0.06 K/mm3 (0.00-0.10); IMMATURE GRAN PERCENT AUTO 1 % (0-1); LYMPHOCYTES ABSOLUTE AUTO 0.62 K/mm3 (0.84-5.20); LYMPHOCYTES PERCENT AUTO 8 % (21-46); MONOCYTES ABSOLUTE AUTO 0.15 K/mm3 (0.16-1.47); MONOCYTES PERCENT AUTO 2 % (4-13); Mean Corpuscular HGB 23.9 pg (26.0-34.0); Mean Corpuscular HGB Conc 32.1 g/dL (31.5-36.5); Mean Corpuscular Volume 75 fL (80-100); NEUTROPHILS PERCENT AUTO 89 % (41-73); NRBC ABSOLUTE 0.24 K/mm3 (0.00-0.02); RDW Coefficient Variation 19.9 % (11.7-14.2); RDW Standard Deviation 51.8 fL (35.1-46.3); Red Blood Cell Count 3.68 M/mm3 (3.80-5.20); White Blood Cell Count 7.94 K/mm3 (4.00-11.30)
[2019-04-17 04:09] LABS: Platelet Count 2 K/mm3 (150-400)
[2019-04-17 04:22] LABS: Albumin, Blood 2.9 g/dL (3.4-5.0); Anion Gap 8 mmol/L (6-16); Blood Urea Nitrogen 14 mg/dL (8-24); Bun/Creatinine Ratio 26.2 (12.0-20.0); CO2, Blood 25 mmol/L (21-32); Calcium, Blood 8.1 mg/dL (8.5-10.1); Chloride, Blood 96 mmol/L (98-108); Creatinine, Blood 0.54 mg/dL (0.40-1.00); Glomerular Filtration Rate >60 (60-); Glucose, Blood 171 mg/dL (70-99); Phosphorus, Blood 3.4 mg/dL (2.5-4.9); Potassium, Blood 4.2 mmol/L (3.5-5.5); Sodium, Blood 129 mmol/L (136-145)
--- NOTE | 2019-04-17 07:41 | NUR ---
SHIFT SUMMARY PATIENT AWAKE MOST OF THE NIGHT, PATIENT APPEARED TO NAP ON AND OFF THROUGHOUT THE NIGHT BUT OVERALL WAS RESTLESS LAST NIGHT. PATIENTS STATED THAT THIS WAS NORMAL FOR HER, "THIS IS HOW I USUAL AM." PATIENT KEPT STATING THAT SHE WAS GOING HOME IN THE MORNING ONCE HER ARRIVED. PATIENT FINALLY ALLOWED RN TO PLACE NEW IV. PATIENT'S HEART RATE TRENDED IN THE 110'S-120'S FOR MOST OF THE NIGHT, OCCATIONALLY TOUCH UP TO THE 130'S. REPORT GIVEN TO ONCOMING RN.
--- NOTE | 2019-04-17 07:51 | NUR ---
AM NOTE. ASSUMED CARE OF PT APROX 0700, PT IS A&Ox3 UNABLE TO STATE THE DATE TODAY, PT IS FORGETFUL AT TIMES. PT WAS ADMITTED FOR AFIB RVR, PT'S PLATELETS ARE ALSO LOW AT 2 TODAY. PT'S CURRENT BP IS 84/66, PT IS NOT SYMPTOMATIC AT THIS TIME. PT DENIES CHEST PAIN/PRESSURE, N/V OR SOB. L/S COARSE T/O WITH CRACKLES IN THE BASES, PT IS ON RA WITH O2 SATS >90%. BT PRESENT AND HYPOACTIVE, ABD IS SOFT AND NONTENDER TO PALP. PT HAS 4+ EDEMA TO HER BLE AND FEET. PT'S CURRENTLY IN AFIB RVR WITH RATE IN THE 120'S. WILL CONTINUE TO MONITOR.
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
--- NOTE | 2019-04-17 22:35 | NUR ---
Assumed care of pt at approx 1900. Pt sitting in bed, appears comfortable. VSS. No apparent sign of distress. Breathing easy and unlabored. Able to make needs knonw, however sets off bed alarm frequently. Pt educated multiple times about using call light when needing assistance. Pt to bsc with SBA, minimal assitance needed. SCDs inplace and functioning. See shift assessment for detailed systems assessment. Will continue to monitor and update as needed.
--- NOTE | 2019-04-17 23:51 | NUR ---
UPDATE Pt with increased confusion and disorientation as shift continues. Per previous RN charting, current pt presentation is consistant with previous night warehouse selector. Pt remains alert, follows commands and directions. Pt continues to frequently set off bed alarm. Rounding frequently to ensure pt safety. Will continue to monitor.
[2019-04-18 04:29] LABS: BASOPHILS ABSOLUTE AUTO 0.02 K/mm3 (0.00-0.23); BASOPHILS PERCENT AUTO 0 % (0-2); EOSINOPHILS PERCENT AUTO 0 % (0-6); Hemoglobin 8.3 g/dL (11.5-16.0); IMMATURE GRAN ABSOLUTE AUTO 0.12 K/mm3 (0.00-0.10); IMMATURE GRAN PERCENT AUTO 1 % (0-1); LYMPHOCYTES ABSOLUTE AUTO 0.62 K/mm3 (0.84-5.20); LYMPHOCYTES PERCENT AUTO 4 % (21-46); MONOCYTES ABSOLUTE AUTO 0.32 K/mm3 (0.16-1.47); MONOCYTES PERCENT AUTO 2 % (4-13); Mean Corpuscular HGB 23.9 pg (26.0-34.0); Mean Corpuscular HGB Conc 31.9 g/dL (31.5-36.5); Mean Corpuscular Volume 75 fL (80-100); NEUTROPHILS ABSOLUTE AUTO 15.41 K/mm3 (1.96-9.15); NEUTROPHILS PERCENT AUTO 94 % (41-73); NRBC ABSOLUTE 0.29 K/mm3 (0.00-0.02); NRBC Auto 1.8 /100 WBC (0.0-0.2); RDW Coefficient Variation 19.8 % (11.7-14.2); RDW Standard Deviation 51.9 fL (35.1-46.3); Red Blood Cell Count 3.47 M/mm3 (3.80-5.20); White Blood Cell Count 16.49 K/mm3 (4.00-11.30)
[2019-04-18 04:31] LABS: Platelet Count 5 K/mm3 (150-400)
[2019-04-18 04:42] LABS: Albumin, Blood 2.8 g/dL (3.4-5.0); Anion Gap 9 mmol/L (6-16); Blood Urea Nitrogen 14 mg/dL (8-24); Bun/Creatinine Ratio 28.2 (12.0-20.0); CO2, Blood 25 mmol/L (21-32); Calcium, Blood 8.4 mg/dL (8.5-10.1); Chloride, Blood 97 mmol/L (98-108); Glomerular Filtration Rate >60 (60-); Glucose, Blood 134 mg/dL (70-99); Phosphorus, Blood 3.3 mg/dL (2.5-4.9); Sodium, Blood 131 mmol/L (136-145)
--- NOTE | 2019-04-18 04:58 | NUR ---
Shift Summary Pt with no acute changes this shift. VSS. no apparent sign of distress. Breathing remains easy and unlabored. Pt continues with waxing and waning orientation. Pt remains alert, calm and cooperative with care. Pt continues to set off bed alarm instead of using call light to make needs knonw. Pt states "I will try to remember to call when I need to pee". Pt up to BSC with SBA multiple time this shift for voids. Pt able to transfer self with minimal assistace. Pt with complaint of pain once at begining of shift, otherwise denies pain. No events on tele; remains in AFIB. Pt require no change in oxygen demand, sleeping with PRN NC and RA as at baseline. Critical value recieved of platelets at 5 which is an improvement from days past at 1 and 2. Discussed value with chargeback analyst. Will continue to monitor and provide care per orders and protocol until day RN assumes care.
--- NOTE | 2019-04-18 07:30 | NUR ---
ASSUMED CARE OF PATIENT; SEE ASSESSMENT CHARTING FOR DETAILS. PATIENT REMAINS WITH ATRIAL FIB RVR WITH RATE 120'S TO 140'S+. PO AND IV MEDS RECEIVED ROUTINELY TO HELP MANAGE IRREGULAR/RAPID HR. LUNGS CLEAR BUT DECREASED IN BASES; GOING OUT TO SMOKE WITH FAMILY SEVERAL TIMES A DAY; SPOUSE PUTS PATIENT IN W/C. RN ADVISED THAT MONITOR CAN NOT BE WATCHED WHEN PATIENT OFF THE FLOOR; PATIENT V/U AND IS NOT CONCERNED. PHYSICIANS AWARE OF PATIENTS' NON-COMPLIANT BEHAVIOR. UP FOR BRP WITH STANDBY ASSIST.; BED ALARM ON TO REMIND PATIENT TO CALL STAFF WHEN OOB. CALL LIGHT AT BEDSIDE AND PATIENT WILL USE. AFEBRILE AND VSS OTHER THAN RAPID HR.
--- NOTE | 2019-04-18 15:20 | NUR ---
T/C TO DR. HUGHES RE: CARDIOLOGY NOT MAKING ROUNDS AND INFORMING THAT AVERAGE HR IS ABOUT 130/MIN (AFIB RVR); RECEIVED AM DIG. DOSE ETC. PHYSICIAN WANTS ANOTHER DOSE OF DIGOXIN GIVEN NOW; THIS WILL BE 3RD DOSE; DIGOXIN LEVEL IN AM.
--- NOTE | 2019-04-18 16:05 | NUR ---
DIGOXIN 0.25 IV (EXTRA DOSE TODAY).
--- NOTE | 2019-04-18 16:37 | NUR ---
T/C FROM CARDIOLOGY OFFICE TO INFORM THAT PATIENT HAD CALLED THEM AND WANTED DR. VAUGHAN TO VISIT AND D/C HER. OFFICE STAFF INFORMED THAT DR. NAGEL NOT CUBING MACHINE TENDER TODAY AND THAT DR. MCNAMARA'S NOTE ADVISED PATIENT NOT TO LEAVE HOSPITAL AGAINST MEDICAL ADVICE. OFFICE STAFF CONTACTED PCU NURSE. SHE WILL UPDATE DR. MCNAMARA RE: PATIENTS' PHONE CALL.
--- NOTE | 2019-04-18 16:42 | NUR ---
RN REINFORCED NEED FOR PATIENT TO REMAIN IN HOSPITAL TIL IRREG/RAPID HR CAN BE MANAGED. EXPLAINED REASONING ETC. AND PATIENT ANSWERED "I GUESS".
--- NOTE | 2019-04-18 18:00 | NUR ---
SUMMARY: NO ACUTE CHANGES; COOPERATIVE AND PLEASANT MOST OF DAY; SPOUSE IN/OUT AND TAKES PATIENT FOR A SMOKE; ESCORTS HER PER W/C. APPETITE GOOD. VOIDING WITHOUT DIFFICULTY; NO STOOL TODAY. OVERALL STATUS IMPROVING BUT HR REMAINS WITH RAPID ATRIAL FIB; TO HAVE DIG LEVEL IN AM. PLATELET COUNT WILL BE CHECKED ALSO.
[2019-04-19 03:59] LABS: BASOPHILS ABSOLUTE AUTO 0.01 K/mm3 (0.00-0.23); BASOPHILS PERCENT AUTO 0 % (0-2); EOSINOPHILS PERCENT AUTO 0 % (0-6); Hematocrit 26.4 % (33.0-51.0); Hemoglobin 8.2 g/dL (11.5-16.0); IMMATURE GRAN ABSOLUTE AUTO 0.17 K/mm3 (0.00-0.10); IMMATURE GRAN PERCENT AUTO 1 % (0-1); LYMPHOCYTES ABSOLUTE AUTO 0.35 K/mm3 (0.84-5.20); LYMPHOCYTES PERCENT AUTO 2 % (21-46); MONOCYTES ABSOLUTE AUTO 0.31 K/mm3 (0.16-1.47); MONOCYTES PERCENT AUTO 2 % (4-13); Mean Corpuscular HGB 23.6 pg (26.0-34.0); Mean Corpuscular HGB Conc 31.1 g/dL (31.5-36.5); Mean Corpuscular Volume 76 fL (80-100); NEUTROPHILS ABSOLUTE AUTO 14.17 K/mm3 (1.96-9.15); NEUTROPHILS PERCENT AUTO 94 % (41-73); NRBC ABSOLUTE 0.38 K/mm3 (0.00-0.02); NRBC Auto 2.5 /100 WBC (0.0-0.2); RDW Coefficient Variation 19.5 % (11.7-14.2); RDW Standard Deviation 51.8 fL (35.1-46.3); Red Blood Cell Count 3.48 M/mm3 (3.80-5.20); White Blood Cell Count 15.01 K/mm3 (4.00-11.30)
[2019-04-19 04:11] LABS: Platelet Count 7 K/mm3 (150-400)
--- NOTE | 2019-04-19 04:52 | NUR ---
SHIFT SUMMARY: PATIENT HR REMAINS HIGH, MEDICATIONS ADMINISTERED PER MD ORDER. NO OTHER ISSUES NOTED, ALL OTHER VSS, CALL LIGHT WITHIN REACH, BED LOW AND LOCKED WITH EXIT ALARM ON.
[2019-04-19 04:53] LABS: Anion Gap 10 mmol/L (6-16); Blood Urea Nitrogen 16 mg/dL (8-24); Bun/Creatinine Ratio 32.9 (12.0-20.0); CO2, Blood 24 mmol/L (21-32); Calcium, Blood 8.1 mg/dL (8.5-10.1); Chloride, Blood 96 mmol/L (98-108); Creatinine, Blood 0.49 mg/dL (0.40-1.00); Digoxin (Lanoxin) 1.32 ug/mL (0.80-2.00); Glomerular Filtration Rate >60 (60-); Glucose, Blood 179 mg/dL (70-99); Potassium, Blood 3.3 mmol/L (3.5-5.5); Sodium, Blood 130 mmol/L (136-145)
--- NOTE | 2019-04-19 07:43 | NUR ---
pt laying in bed with eyes closed wakes easily, states she was up a lot last night, only complaints of pain except her chronic epigastric pain, lungs are clear in upper pappas, a bit course in right base, but cleared some with cough she is currently on r/a sats 97%, resp even and unlabored, has a chronic cough, she is a current smoker, hrirr, tele in place running afib with a very labile rate, chronically runs high, no edema noted, ppp+2, cap refill <3sec, vs stable, temp, 99. iv site to rfa site is clear and patent, s.l. at this time, btx4, abd flat soft nontender, voids without diff, skin has some scattered bruising, otherwise c/d/i, polly bland, call light in reach.
--- NOTE | 2019-04-19 13:30 | NUR ---
pt asking about when she will go home. her s.o. in to take her outside to smoke. complains about epigastric pain, offered to ask for some maalox, she said it wont help. no further changes. call light in reach.
--- NOTE | 2019-04-19 17:42 | NUR ---
pt left to smoke a number of times today, no complaints, s.o. in room with her, she had a bm today. no further changes this shift. call light in reach.
--- NOTE | 2019-04-20 03:46 | NUR ---
shift summary: patient very cooperative this shift and responding to education with appropriate questions and understanding. Patient vss, hr still elevated but patient sleeping better with less sob on activity. Patient compliant and calling for help when appropriate. Bed alarm not needed this shift, bed low and locked and call light within reach.
[2019-04-20 03:57] LABS: BASOPHILS ABSOLUTE AUTO 0.01 K/mm3 (0.00-0.23); BASOPHILS PERCENT AUTO 0 % (0-2); EOSINOPHILS PERCENT AUTO 0 % (0-6); Hematocrit 24.3 % (33.0-51.0); Hemoglobin 7.6 g/dL (11.5-16.0); IMMATURE GRAN ABSOLUTE AUTO 0.17 K/mm3 (0.00-0.10); IMMATURE GRAN PERCENT AUTO 1 % (0-1); LYMPHOCYTES ABSOLUTE AUTO 0.33 K/mm3 (0.84-5.20); LYMPHOCYTES PERCENT AUTO 2 % (21-46); MONOCYTES ABSOLUTE AUTO 0.31 K/mm3 (0.16-1.47); MONOCYTES PERCENT AUTO 2 % (4-13); Mean Corpuscular HGB 23.5 pg (26.0-34.0); Mean Corpuscular HGB Conc 31.3 g/dL (31.5-36.5); Mean Corpuscular Volume 75 fL (80-100); NEUTROPHILS ABSOLUTE AUTO 13.02 K/mm3 (1.96-9.15); NEUTROPHILS PERCENT AUTO 94 % (41-73); NRBC ABSOLUTE 0.34 K/mm3 (0.00-0.02); NRBC Auto 2.5 /100 WBC (0.0-0.2); RDW Coefficient Variation 19.1 % (11.7-14.2); RDW Standard Deviation 50.3 fL (35.1-46.3); Red Blood Cell Count 3.24 M/mm3 (3.80-5.20); White Blood Cell Count 13.84 K/mm3 (4.00-11.30)
[2019-04-20 04:09] LABS: Platelet Count 7 K/mm3 (150-400)
[2019-04-20 04:29] LABS: Magnesium, Blood 2.1 mg/dL (1.6-2.4)
[2019-04-20 04:30] LABS: Albumin, Blood 2.9 g/dL (3.4-5.0); Anion Gap 10 mmol/L (6-16); Blood Urea Nitrogen 20 mg/dL (8-24); Bun/Creatinine Ratio 37.6 (12.0-20.0); CO2, Blood 24 mmol/L (21-32); Calcium, Blood 8.1 mg/dL (8.5-10.1); Chloride, Blood 99 mmol/L (98-108); Creatinine, Blood 0.53 mg/dL (0.40-1.00); Glomerular Filtration Rate >60 (60-); Glucose, Blood 182 mg/dL (70-99); Phosphorus, Blood 2.9 mg/dL (2.5-4.9); Potassium, Blood 3.5 mmol/L (3.5-5.5); Sodium, Blood 133 mmol/L (136-145)
--- NOTE | 2019-04-20 13:57 | NUR ---
NOTE PT EXPRESSED DESIRE TO LEAVE AMA THIS MORNING WHEN GOT HERE TO TAKE HER OUT TO GO SMOKE. PT DECLINED TO TAKE HER HOME. DR CHOWDARY AND EL TALKED ON THE PHONE. PT HR TRENDS 115-170 BPM. DEPENDS ON WHAT SHE IS DOING. FAMILY COMES TO TAKE HER OUT TO SMOKE VIA W/C SEVERAL TIMES A DAY. PT AGREEABLE TO TAKE HER MORNING HR MEDICATIONS. PT UP TO BATHROOM WITH SBA. GAIT WEAK, STEADY. REFUSED TO USE FWW. DENIED PAIN JUST WANTS TO GO HOME. CONTINUE POT.
[2019-04-21 04:02] LABS: BASOPHILS ABSOLUTE AUTO 0.01 K/mm3 (0.00-0.23); BASOPHILS PERCENT AUTO 0 % (0-2); EOSINOPHILS ABSOLUTE AUTO 0.01 K/mm3 (0.00-0.68); EOSINOPHILS PERCENT AUTO 0 % (0-6); Hematocrit 24.8 % (33.0-51.0); IMMATURE GRAN ABSOLUTE AUTO 0.15 K/mm3 (0.00-0.10); IMMATURE GRAN PERCENT AUTO 1 % (0-1); LYMPHOCYTES ABSOLUTE AUTO 0.64 K/mm3 (0.84-5.20); LYMPHOCYTES PERCENT AUTO 4 % (21-46); MONOCYTES ABSOLUTE AUTO 0.82 K/mm3 (0.16-1.47); MONOCYTES PERCENT AUTO 5 % (4-13); Mean Corpuscular HGB Conc 32.3 g/dL (31.5-36.5); Mean Corpuscular Volume 74 fL (80-100); NEUTROPHILS ABSOLUTE AUTO 14.41 K/mm3 (1.96-9.15); NEUTROPHILS PERCENT AUTO 90 % (41-73); NRBC ABSOLUTE 0.33 K/mm3 (0.00-0.02); NRBC Auto 2.1 /100 WBC (0.0-0.2); RDW Coefficient Variation 19.4 % (11.7-14.2); RDW Standard Deviation 51.2 fL (35.1-46.3); Red Blood Cell Count 3.34 M/mm3 (3.80-5.20); White Blood Cell Count 16.04 K/mm3 (4.00-11.30)
[2019-04-21 04:07] LABS: Platelet Count 7 K/mm3 (150-400)
[2019-04-21 04:17] LABS: Anion Gap 7 mmol/L (6-16); Blood Urea Nitrogen 17 mg/dL (8-24); Bun/Creatinine Ratio 37.9 (12.0-20.0); CO2, Blood 27 mmol/L (21-32); Calcium, Blood 8.3 mg/dL (8.5-10.1); Chloride, Blood 99 mmol/L (98-108); Creatinine, Blood 0.45 mg/dL (0.40-1.00); Glomerular Filtration Rate >60 (60-); Glucose, Blood 126 mg/dL (70-99); Potassium, Blood 4.3 mmol/L (3.5-5.5); Sodium, Blood 133 mmol/L (136-145)
--- NOTE | 2019-04-21 06:01 | NUR ---
SHIFT SUMMARY PT HAS REMAINED AOX4 THROUGHOUT SHIFT WITH SOME MOMENTS OF FORGETFULNESS UPON WAKING. VSS. PLEASANT AND COOPERATIVE WITH CARE. PT CONTINUES TO AMBULATE WITH SBA IN ROOM WITHOUT DIFFICULTY. DENIES DYSPNEA ON EXERTION. CARDIAC RHYTHM HAS REMAINED IN ATRIAL FIBRILLATION THROUGHOUT THE NIGHT WITH A RATE AVERAGING IN THE 120-140s DEPENDING ON ACTIVITY. PT WANTING TO GO OUTSIDE TO SMOKE THROUGHOUT THE NIGHT, BUT UNABLE TO FIND NUT PACKER. PT UP THIS AM GETTING DRESSED AND REMOVING TELEMETRY @ 0400 SAYING THAT SHE NEEDS TO "GET HER PAPERWORK TOGETHER SO SHE CAN TURN IT IN TO [facility] TODAY". PT INFORMED THAT PHYSICIAN HAS NOT INPUT DISCHARGE ORDERS AND THAT [facility] IS CLOSED TODAY FOR HOLIDAY. PT PUT ON OWN CLOTHES AND AGREED TO LEAVE TELE AND IV IN PLACE UNTIL PROVIDER SEES HER THIS AM. WILL CONTINUE TO MONITOR AND REPORT TO ONCOMING SHIFT RN. BED IN LOW POSITION, CALL LIGHT IN REACH.
[2019-04-22 03:47] LABS: BASOPHILS ABSOLUTE AUTO 0.01 K/mm3 (0.00-0.23); BASOPHILS PERCENT AUTO 0 % (0-2); EOSINOPHILS ABSOLUTE AUTO 0.06 K/mm3 (0.00-0.68); EOSINOPHILS PERCENT AUTO 0 % (0-6); Hematocrit 25.7 % (33.0-51.0); IMMATURE GRAN ABSOLUTE AUTO 0.12 K/mm3 (0.00-0.10); IMMATURE GRAN PERCENT AUTO 1 % (0-1); LYMPHOCYTES ABSOLUTE AUTO 1.16 K/mm3 (0.84-5.20); LYMPHOCYTES PERCENT AUTO 8 % (21-46); MONOCYTES ABSOLUTE AUTO 1.08 K/mm3 (0.16-1.47); MONOCYTES PERCENT AUTO 7 % (4-13); Mean Corpuscular HGB 23.2 pg (26.0-34.0); Mean Corpuscular HGB Conc 31.1 g/dL (31.5-36.5); Mean Corpuscular Volume 75 fL (80-100); NEUTROPHILS ABSOLUTE AUTO 13.05 K/mm3 (1.96-9.15); NEUTROPHILS PERCENT AUTO 84 % (41-73); NRBC ABSOLUTE 0.17 K/mm3 (0.00-0.02); NRBC Auto 1.1 /100 WBC (0.0-0.2); RDW Coefficient Variation 19.6 % (11.7-14.2); RDW Standard Deviation 51.1 fL (35.1-46.3); Red Blood Cell Count 3.45 M/mm3 (3.80-5.20); White Blood Cell Count 15.48 K/mm3 (4.00-11.30)
[2019-04-22 03:54] LABS: Platelet Count 3 K/mm3 (150-400)
[2019-04-22 04:00] LABS: Anion Gap 7 mmol/L (6-16); Blood Urea Nitrogen 13 mg/dL (8-24); Bun/Creatinine Ratio 33.2 (12.0-20.0); CO2, Blood 28 mmol/L (21-32); Chloride, Blood 97 mmol/L (98-108); Creatinine, Blood 0.39 mg/dL (0.40-1.00); Glomerular Filtration Rate >60 (60-); Glucose, Blood 120 mg/dL (70-99); Potassium, Blood 4.3 mmol/L (3.5-5.5); Sodium, Blood 132 mmol/L (136-145)
--- NOTE | 2019-04-22 06:22 | NUR ---
SHIFT SUMMARY PT RESTING IN ROOM COMFORTABLY AT THIS TIME. PT HAD NO MAJOR CHANGES IN STATSU T/O NIGHT. PT DID NOT SLEEP WELL AND WAS AWAKE MOST OF THE NIGHT CALLING TO COME TO TAKE HER FOR A CIGARETTE. PT WAS ADVISED THERE WAS NOT STAFF TO TAKE HER OUTSIDE TO SMOKE, PT JUAN AGGITATED AT STAFF, BUT WAS REDIRECTABLE WITH THERAPEUTIC COMMUNICATION AND DISTRACTION. PT CONTINUED TO REQUEST TO SMOKE T/O NIGHT AND CALLED OUT IN ROOM FOR HER CLOTHES AND HER . PT WAS ABLE TO AMBULATE INTO RR TO URINATE W/ SBA. RESP EVEN UNLABORED ON RA W/ SATS >92%. PT VERY AGGITATED THIS AM ABOUT NOT BEING IN HERE YET. PT REPORTS "I WANT MY CLOTHES I AM LEAVING NOW". PT EDUCATED THAT NEEDED TO SEE PT THIS AM TO REEVALUTE HER STATUS AND THAT SHE DID NOT HAVE CLOTHES HERE, HER TOOK THEM HOME. PT AGAIN VERY AGGIATTED REPORTS "WELL THEN I'M WALKING OUT OF HERE NAKED I CAN'T STAND BEING HER ANYMORE I AM GOING CRAXY". PT WAS REDIRECTED BACK TO BED AND EDUCATED THAT WOULD NEED TO COME TO HOSPITAL BEFORE PT COULD GO ANYWHERE. PT AGREED TO WAIT UNTIL CAME IN THIS AM BEFORE MAKING ANY DECISIONS. CALL LIGHT IN REACH. BED ALARM ON D/T PT IMPULSIVITY.
--- NOTE | 2019-04-22 08:51 | NUR ---
PT OUT TO SMOKE
[2019-04-22 12:17] LABS: Albumin, Blood 2.9 g/dL (3.4-5.0); Bilirubin, Direct 0.9 mg/dL (0.0-0.3); Bilirubin, Indirect 0.9 mg/dL (0.1-0.7); Bilirubin, Total 1.8 mg/dL (0.1-1.0); Total Protein, Blood 5.9 g/dL (6.4-8.2)
--- NOTE | 2019-04-22 13:41 | NUR ---
Patient is lying in bed and alert. Patient openly tells me she feels like she is in "limbo" and she just wants to go home. I ask her what she means by limbo and she says that her doctors don't know what they are doing with her and that she has been in the hospital 9 days and doesn't know what is happening with her care. I ask patient about her spiritual beliefs and she states that she used to have some but that she doesn't any more. I ask her what happened that caused her to lose her rosy. She answers by telling me that there are just too many unanswered questions. Asked for an example and she said I am tired now, I asked if I could pray for her before I leave and she said, "no, but thank you." I left patient's room. I heard patient tell her another staff member that she feels like she is in limbo waiting for answers. Staff person says she will follow up.
--- NOTE | 2019-04-22 19:43 | NUR ---
SHIFT SUMMARY PT A&Ox3, FORGETFUL. PT ANXIOUS BUT COOPERATIVE WITH CARE. PT RESTING IN BED DURING SHIFT. UP SBA TO BATHROOM. PT EDUCATED ON NEED TO MONITOR INPUT AND OUT PUT. PT RECEIVING PO CARDIZEM AND DIGOXIN FOR HR 110-120 THIS AM, 130-140 WHEN PT GETS BACK FROM SMOKING. PT REPORTS EPIGASTRIC PAIN, STATES ITS THE SAME PAIN SHE HAS BEEN GETTING, MEDICATED x1 WITH FENTYL WITH POSITIVE RESULTS. PT SOB WITH EXERTION OR WHEN BACK FROM SMOKING, >92% ON RA T/O SHIFT. PT STATES SHE WANTS TO GO HOME, STATES SHE HAS DISCUSSED HOSPICE, BUT IS AWAITING A VISIT FROM DR SCHWARTZ. VSS. REPORT GIVEN TO ONCOMING RN.
--- NOTE | 2019-04-23 05:29 | NUR ---
SHIFT SUMMARY PT A&O X4 W/ EPISODES OF FORGETFULNESS. MONITOR SHOWS AFIB, HR 120-150. VSS. NO EVENTS OVERNIGHT. WILL CONTINUE TO MONITOR AND PROVIDE CARE UNTIL REPORT OFF TO DAY SHIFT RN.
[2019-04-23 08:12] LABS: BASOPHILS ABSOLUTE AUTO 0.01 K/mm3 (0.00-0.23); BASOPHILS PERCENT AUTO 0 % (0-2); EOSINOPHILS ABSOLUTE AUTO 0.08 K/mm3 (0.00-0.68); EOSINOPHILS PERCENT AUTO 1 % (0-6); Hematocrit 25.5 % (33.0-51.0); Hemoglobin 8.2 g/dL (11.5-16.0); IMMATURE GRAN ABSOLUTE AUTO 0.11 K/mm3 (0.00-0.10); IMMATURE GRAN PERCENT AUTO 1 % (0-1); LYMPHOCYTES ABSOLUTE AUTO 1.05 K/mm3 (0.84-5.20); LYMPHOCYTES PERCENT AUTO 8 % (21-46); MONOCYTES ABSOLUTE AUTO 1.16 K/mm3 (0.16-1.47); MONOCYTES PERCENT AUTO 8 % (4-13); Mean Corpuscular HGB Conc 32.2 g/dL (31.5-36.5); Mean Corpuscular Volume 75 fL (80-100); NEUTROPHILS ABSOLUTE AUTO 11.38 K/mm3 (1.96-9.15); NEUTROPHILS PERCENT AUTO 83 % (41-73); NRBC ABSOLUTE 0.16 K/mm3 (0.00-0.02); NRBC Auto 1.2 /100 WBC (0.0-0.2); RDW Standard Deviation 51.2 fL (35.1-46.3); Red Blood Cell Count 3.42 M/mm3 (3.80-5.20); White Blood Cell Count 13.79 K/mm3 (4.00-11.30)
[2019-04-23 08:31] LABS: Platelet Count 2 K/mm3 (150-400)
[2019-04-23 09:08] LABS: HEPARIN INDUCED PLATELET AB 0.683 OD (0.000-0.400); SRA, LOW DOSE HEPARIN 1 % (0-20)
--- NOTE | 2019-04-23 09:22 | NUR ---
late entry spoke with patient yesterday. Called by cre managerto meet with patient. She was expressing desire to go on hospice. Review ofpatient with nursing. Contacted Dr. Mota office regarding visit and plan of care. Dr. Mota contacted nursing for follow up labs. Supportive visit with patient. She wantsto go home, she statesher wants to hear what doctor Mota has to offer and if she can tolerate treatment and participate. Pt feels she is not doing well and wants to be home. We setteled ondiscussing a plan after she talks to doctor and her family. We spoke about her wanting to be with family and live her best life as long as she can. Pt expressed a strong need for autonomy and control.
[2019-04-23 14:00] LABS: D-Dimer, Quantitative 1.21 mg/L FEU (0.00-0.52); International Normalized Ratio 1.21; Prothrombin Time Results 12.6 Sec (9.7-11.5)
[2019-04-23] MEDS ORDERED: DILT120 PO (14:52)
[2019-04-23] MEDS ORDERED: ATEN100 PO (14:53)
[2019-04-23] MEDS ORDERED: LANOXIN125 MCG PO (14:54)
--- NOTE | 2019-04-23 17:09 | NUR ---
DISCHARGE SUMMARY PT A&Ox4, FORGETFUL AT TIMES. CALM AND COOPERATIVE WITH CARE. PT UP IN CHAIR THIS AM, RESTING IN BED FOR MAJORITY OF SHIFT. SBA TO BATHROOM. PT REPORTS EPIGASTRIC PAIN, MEDICATED x1 WITH FENTNYL WITH POSITIVE RESULTS. PT SOB WITH EXERTION, >92% ON RA T/T SHIFT. PT DENIES NAUSEA, STATES SHE FILLS UP QUICKLY. PT RECEIVING PO CARDIZEM AND PO DIGOXIN FOR HR CONTROL, TELE AFIB 120-140'S. DR SCHWARTZ TO BEDSIDE THIS AFTERNOON, AGREEABLE TO CONTINUE WITH TREATMENT AN OUTPATIENT THE PT HAS BEEN REQUESTING TO HOME. VSS. NO OTHER ACUTE CHANGES NOTED. PT EDUCATED ON DISCHARGE INSTRUCTIONS, MEDICATIONS AND FOLLOW UP APPOINTMENTS WITH PCP AND DR SCHWARTZ (AND FOLLOW UP LABS). EDUCATED PT ON SAFETY AT HOME AND THE NEED TO SEEK MEDICAL ATTENTION IF FALLS AT HOME, ESPECIALLY IS HITS HEAD. PT LEFT ROOM VIA HOME WHEELCHAIR AT 1550.
== END 2019-04-23 15:50 | disposition home or self-care (01) | DRG 813 ==
LOC: ER 12:29 → PCU 14:57
PROVIDERS: Hospitalist; Internal Medicine; Internal Medicine Hematology & Oncology; ADMIT Internal Medicine
PROC: 30233N1 Transfusion of Nonautologous Red Blood Cells into Peripheral Vein, Percutaneous Approach (ICD-10-PCS; principal; 2019-04-13)
PROC: 6A550Z2 Pheresis of Platelets, Single (ICD-10-PCS; 2019-04-19)
DX: D69.59 Other secondary thrombocytopenia (principal); I50.33 Acute on chronic diastolic (congestive) heart failure; E87.1 Hypo-osmolality and hyponatremia; D56.3 Thalassemia minor; I48.2 Chronic atrial fibrillation; J43.9 Emphysema, unspecified; F17.210 Nicotine dependence, cigarettes, uncomplicated; D50.9 Iron deficiency anemia, unspecified; Z99.81 Dependence on supplemental oxygen; M79.7 Fibromyalgia; I27.20 Pulmonary hypertension, unspecified; I51.3 Intracardiac thrombosis, not elsewhere classified; B19.20 Unspecified viral hepatitis C without hepatic coma; S05.00XA Injury of conjunctiva and corneal abrasion without foreign body, unspecified eye, initial encounter; K62.3 Rectal prolapse; G47.33 Obstructive sleep apnea (adult) (pediatric); Z98.0 Intestinal bypass and anastomosis status; Z95.3 Presence of xenogenic heart valve; M81.0 Age-related osteoporosis without current pathological fracture; K22.70 Barrett's esophagus without dysplasia; I95.9 Hypotension, unspecified; Z66 Do not resuscitate; Y92.9 Unspecified place or not applicable
CPT/HCPCS: 36415; 36430; 70450; 71046; 80048; 80053; 80069; 80076; 80162; 81001; 82272; 83615; 83735; 83880; 84100; 84132; 84484; 85025; 85060; 85379; 85384; 85610; 85730; 86022; 86850; 86900; 86901; 86923; 87086; 93005; 93010; 93308; 93321; 93970; 94640; 94760; 94762; 96374; 96375; 99285-25; C1751; C9113; J1160; J1940; J3010; J7030; P9016; P9035

== ENCOUNTER 2019-04-26 04:39 | Emergency (ER) | payer OTHER ==
[~2019-04-26] VITALS: Ht 167.6 cm; Wt 59.0 kg
[~2019-04-26 04:39] MED LIST changes: +ATEN100 PO; +Amlodipine Besy10 MG PO; +DILTIAZEM 24HR180 M1 PO; +FURO40 PO; +K-TAB ER20 MEQ PO; +LANOXIN125 MCG PO; +REMERON15 MG PO; +XARELTO20 MG PO
[2019-04-26 05:11] LABS: BASOPHILS ABSOLUTE AUTO 0.01 K/mm3 (0.00-0.23); BASOPHILS PERCENT AUTO 0 % (0-2); EOSINOPHILS ABSOLUTE AUTO 0.11 K/mm3 (0.00-0.68); EOSINOPHILS PERCENT AUTO 1 % (0-6); Hematocrit 22.3 % (33.0-51.0); Hemoglobin 7.5 g/dL (11.5-16.0); IMMATURE GRAN PERCENT AUTO 2 % (0-1); LYMPHOCYTES PERCENT AUTO 6 % (21-46); MONOCYTES ABSOLUTE AUTO 1.45 K/mm3 (0.16-1.47); MONOCYTES PERCENT AUTO 11 % (4-13); Mean Corpuscular HGB Conc 33.6 g/dL (31.5-36.5); Mean Corpuscular Volume 74 fL (80-100); NEUTROPHILS ABSOLUTE AUTO 10.98 K/mm3 (1.96-9.15); NEUTROPHILS PERCENT AUTO 81 % (41-73); NRBC ABSOLUTE 0.56 K/mm3 (0.00-0.02); NRBC Auto 4.1 /100 WBC (0.0-0.2); RDW Coefficient Variation 21.2 % (11.7-14.2); RDW Standard Deviation 51.4 fL (35.1-46.3); White Blood Cell Count 13.55 K/mm3 (4.00-11.30)
[2019-04-26 05:16] LABS: Platelet Count 4 K/mm3 (150-400)
[2019-04-26 05:30] LABS: Alanine Aminotransfer (ALT/SGP 27 U/L (12-78); Albumin, Blood 2.5 g/dL (3.4-5.0); Albumin/Globulin Ratio 0.9 (0.8-1.8); Alk Phos 125 U/L (50-136); Anion Gap 9 mmol/L (6-16); Aspartate Aminotrans (AST/SGOT 44 U/L (12-37); Bilirubin, Total 2.2 mg/dL (0.1-1.0); Blood Urea Nitrogen 14 mg/dL (8-24); Bun/Creatinine Ratio 34.4 (12.0-20.0); CO2, Blood 26 mmol/L (21-32); Calcium, Blood 7.3 mg/dL (8.5-10.1); Chloride, Blood 92 mmol/L (98-108); Creatinine, Blood 0.41 mg/dL (0.40-1.00); Globulin, Blood 2.8 g/dL (2.2-4.0); Glomerular Filtration Rate >60 (60-); Glucose, Blood 106 mg/dL (70-99); Sodium, Blood 127 mmol/L (136-145); Total Protein, Blood 5.3 g/dL (6.4-8.2); Troponin I 0.017 ng/mL (0.000-0.040)
[2019-04-26 05:42] LABS: Digoxin (Lanoxin) 0.65 ug/mL (0.80-2.00)
== END 2019-04-26 06:15 | disposition left against medical advice (07) ==
LOC: ER 04:39
PROVIDERS: Emergency Medicine
DX: R07.9 Chest pain, unspecified (principal); J43.9 Emphysema, unspecified; I48.91 Unspecified atrial fibrillation; I50.9 Heart failure, unspecified; F17.210 Nicotine dependence, cigarettes, uncomplicated; Z88.0 Allergy status to penicillin; Z88.1 Allergy status to other antibiotic agents; Z88.8 Allergy status to other drugs, medicaments and biological substances; Z79.899 Other long term (current) drug therapy
CPT/HCPCS: 71046; 80053; 80162; 83880; 84484; 85025; 93005; 93010; 99285-25

== ENCOUNTER 2019-04-30 21:39 | Inpatient (IN) | payer OTHER ==
[~2019-04-30] VITALS: Ht 167.6 cm; Wt 77.2 kg
[2019-04-30 22:29] LABS: Source, Urine Catheter
[2019-04-30 22:32] LABS: Bilirubin, Urine Neg (Neg); Blood, Urine Neg (Neg); Glucose Qualitative, Urine Neg (Neg); Ketones, Urine 1+ (Neg); Leukocyte Esterase, Urine Neg (Neg); Nitrite, Urine Neg (Neg); Protein, Urine Neg (Neg); Specific Gravity, Urine 1.015 (1.003-1.022); Urobilinogen, Urine 2+ (Normal)
[2019-04-30 22:34] LABS: BASOPHILS ABSOLUTE AUTO 0.04 K/mm3 (0.00-0.23); BASOPHILS PERCENT AUTO 0 % (0-2); EOSINOPHILS PERCENT AUTO 0 % (0-6); Hematocrit 22.8 % (33.0-51.0); Hemoglobin 7.6 g/dL (11.5-16.0); IMMATURE GRAN ABSOLUTE AUTO 0.29 K/mm3 (0.00-0.10); IMMATURE GRAN PERCENT AUTO 1 % (0-1); LYMPHOCYTES ABSOLUTE AUTO 1.04 K/mm3 (0.84-5.20); LYMPHOCYTES PERCENT AUTO 4 % (21-46); MONOCYTES ABSOLUTE AUTO 0.91 K/mm3 (0.16-1.47); MONOCYTES PERCENT AUTO 4 % (4-13); Mean Corpuscular HGB 24.3 pg (26.0-34.0); Mean Corpuscular HGB Conc 33.3 g/dL (31.5-36.5); Mean Corpuscular Volume 73 fL (80-100); NEUTROPHILS ABSOLUTE AUTO 21.41 K/mm3 (1.96-9.15); NEUTROPHILS PERCENT AUTO 90 % (41-73); NRBC ABSOLUTE 1.68 K/mm3 (0.00-0.02); NRBC Auto 7.1 /100 WBC (0.0-0.2); RDW Coefficient Variation 23.3 % (11.7-14.2); RDW Standard Deviation 55.5 fL (35.1-46.3); Red Blood Cell Count 3.13 M/mm3 (3.80-5.20); White Blood Cell Count 23.69 K/mm3 (4.00-11.30)
[2019-04-30 22:37] LABS: Platelet Count 3 K/mm3 (150-400)
[2019-04-30] MEDS ORDERED: XARELTO15 MG PO (22:45)
[2019-04-30 22:49] LABS: Appearance, Urine Hazy (Clear); Bacteria Many /hpf; Color, Urine Yellow (P-Yellow); Red Blood Cells, Urine Not Seen /hpf (0-2); Squamous Epithelial Cells Rare /hpf (Few); White Blood Cells, Urine Rare /hpf (0-5)
[2019-04-30 22:54] LABS: Albumin, Blood 2.7 g/dL (3.4-5.0); Anion Gap 8 mmol/L (6-16); Blood Urea Nitrogen 31 mg/dL (8-24); Bun/Creatinine Ratio 46.8 (12.0-20.0); CO2, Blood 26 mmol/L (21-32); Calcium, Blood 8.7 mg/dL (8.5-10.1); Chloride, Blood 84 mmol/L (98-108); Creatinine, Blood 0.66 mg/dL (0.40-1.00); Glomerular Filtration Rate >60 (60-); Glucose, Blood 121 mg/dL (70-99); Phosphorus, Blood 3.1 mg/dL (2.5-4.9); Potassium, Blood 4.8 mmol/L (3.5-5.5); Sodium, Blood 118 mmol/L (136-145)
[2019-05-01 01:11] LABS: Digoxin (Lanoxin) 1.12 ug/mL (0.80-2.00)
[2019-05-01 06:01] LABS: Hematocrit 20.4 % (33.0-51.0); Hemoglobin 6.7 g/dL (11.5-16.0); Mean Corpuscular HGB 23.2 pg (26.0-34.0); Mean Corpuscular HGB Conc 32.8 g/dL (31.5-36.5); Mean Corpuscular Volume 71 fL (80-100); NRBC Auto 3.3 /100 WBC (0.0-0.2); RDW Coefficient Variation 22.2 % (11.7-14.2); RDW Standard Deviation 53.6 fL (35.1-46.3); Red Blood Cell Count 2.89 M/mm3 (3.80-5.20); White Blood Cell Count 18.12 K/mm3 (4.00-11.30)
[2019-05-01 06:11] LABS: Platelet Count 2 K/mm3 (150-400)
[2019-05-01 06:20] LABS: Alanine Aminotransfer (ALT/SGP 129 U/L (12-78); Albumin, Blood 2.8 g/dL (3.4-5.0); Albumin/Globulin Ratio 1.3 (0.8-1.8); Alk Phos 120 U/L (50-136); Anion Gap 9 mmol/L (6-16); Aspartate Aminotrans (AST/SGOT 134 U/L (12-37); Bilirubin, Total 2.7 mg/dL (0.1-1.0); Blood Urea Nitrogen 27 mg/dL (8-24); Bun/Creatinine Ratio 47.6 (12.0-20.0); CO2, Blood 31 mmol/L (21-32); Calcium, Blood 8.1 mg/dL (8.5-10.1); Chloride, Blood 85 mmol/L (98-108); Creatinine, Blood 0.57 mg/dL (0.40-1.00); Globulin, Blood 2.2 g/dL (2.2-4.0); Glomerular Filtration Rate >60 (60-); Glucose, Blood 108 mg/dL (70-99); Potassium, Blood 3.2 mmol/L (3.5-5.5); Sodium, Blood 125 mmol/L (136-145)
--- NOTE | 2019-05-01 06:35 | NUR ---
critical value called to , no orders for plt cnt of 2, prescribed tesselon and fentynly for cough and pain, ns infusing with no s/s of infection or infiltration noted at site, rm air, non productive cough, call light in reach, will share bsr with staff and pt, slurred speech
[2019-05-01 14:37] LABS: Anion Gap 7 mmol/L (6-16); Blood Urea Nitrogen 24 mg/dL (8-24); Bun/Creatinine Ratio 46.7 (12.0-20.0); CO2, Blood 29 mmol/L (21-32); Calcium, Blood 7.8 mg/dL (8.5-10.1); Chloride, Blood 87 mmol/L (98-108); Creatinine, Blood 0.51 mg/dL (0.40-1.00); Glomerular Filtration Rate >60 (60-); Glucose, Blood 110 mg/dL (70-99); Potassium, Blood 3.2 mmol/L (3.5-5.5); Sodium, Blood 123 mmol/L (136-145)
--- NOTE | 2019-05-01 18:03 | NUR ---
SHIFT SUMMARY. A&OX3, SLURRED SPEECH THAT IMPROVED WHEN THE PT HAD HER DENTURES FROM HOME. ONE ASSIST TO W/C OR BSC. MCGOWAN PATENT, DRAINING DARK YELLOW URINE. SCLERA AND SKIN APPEAR MILDLY JAUNDICED. PT HAS RECIEVED INFUSION OF ALBUMIN, PLATLETS STARTED, 1 UNIT PRBC PENDING. PT HAS HAD BLEEDING FROM SCABS THAT SHE SCRATCHES PERIDICALLY THROUGHOUT SHIFT, CONTROLLED WITH BANDAIDS. DR. SCHWARTZ CONSULT CALLED INTO OFFICE THIS AFTERNOON. AT BEDSIDE PERIODICALLY THROUGHOUT SHIFT.
--- NOTE | 2019-05-01 18:20 | NUR ---
LATE ENTRY. CLARIFIED WITH DR. MUHAMMAD IF SHE WANTED XARELTO TO BE GIVEN WITH LOW PLATLETS, DR. MUHAMMAD REQUESTED THAT TONIGHT'S DOSE BE HELD.
--- NOTE | 2019-05-01 20:19 | NUR ---
RECEIVED REPORT FROM MAYE SAGE PT TO BE TRANSFERRED FROM MEDICAL FLOOR TO ICU 16
[2019-05-01 20:29] LABS: Anion Gap 6 mmol/L (6-16); Blood Urea Nitrogen 23 mg/dL (8-24); Bun/Creatinine Ratio 44.3 (12.0-20.0); CO2, Blood 30 mmol/L (21-32); Calcium, Blood 8.2 mg/dL (8.5-10.1); Chloride, Blood 86 mmol/L (98-108); Creatinine, Blood 0.52 mg/dL (0.40-1.00); Glomerular Filtration Rate >60 (60-); Glucose, Blood 107 mg/dL (70-99); Potassium, Blood 2.8 mmol/L (3.5-5.5); Sodium, Blood 122 mmol/L (136-145)
--- NOTE | 2019-05-01 20:56 | NUR ---
SPOKE WITH SKYLA WHITMAN NEW ORDERS FOR ANOTHER UNIT OF PRBC'S RECHECK H&H 30 MINUTES POST TRANSFUSION. ADD CBC FROM EARLIER LABS. GUAIAC STOOL. AND D/C XARELTO.
[2019-05-01 21:14] LABS: BASOPHILS ABSOLUTE AUTO 0.02 K/mm3 (0.00-0.23); BASOPHILS PERCENT AUTO 0 % (0-2); EOSINOPHILS ABSOLUTE AUTO 0.02 K/mm3 (0.00-0.68); EOSINOPHILS PERCENT AUTO 0 % (0-6); IMMATURE GRAN ABSOLUTE AUTO 0.16 K/mm3 (0.00-0.10); IMMATURE GRAN PERCENT AUTO 1 % (0-1); LYMPHOCYTES ABSOLUTE AUTO 0.61 K/mm3 (0.84-5.20); LYMPHOCYTES PERCENT AUTO 3 % (21-46); MONOCYTES ABSOLUTE AUTO 0.67 K/mm3 (0.16-1.47); MONOCYTES PERCENT AUTO 4 % (4-13); Mean Corpuscular HGB 25.1 pg (26.0-34.0); Mean Corpuscular HGB Conc 33.9 g/dL (31.5-36.5); NEUTROPHILS ABSOLUTE AUTO 17.69 K/mm3 (1.96-9.15); NEUTROPHILS PERCENT AUTO 92 % (41-73); NRBC ABSOLUTE 0.68 K/mm3 (0.00-0.02); NRBC Auto 3.5 /100 WBC (0.0-0.2); RDW Coefficient Variation 22.5 % (11.7-14.2); RDW Standard Deviation 53.8 fL (35.1-46.3); Red Blood Cell Count 2.35 M/mm3 (3.80-5.20); White Blood Cell Count 19.17 K/mm3 (4.00-11.30)
--- NOTE | 2019-05-01 21:16 | NUR ---
J CARLOS BUS DRIVER, AT BEDSIDE STATED HE WOULD PLACE ORDERS FOR PROTONIX GTT. ALSO WANTS A RECTAL EXAM FOR GUAIAC SAMPLE TO R/O BLEEDING. FIRST UNIT OF BLOOD IS STILL INFUSING; SECOND ONE ORDERED AND ISSUED.
[2019-05-01 21:18] LABS: Mean Corpuscular Volume 74 fL (80-100)
[2019-05-01 21:24] LABS: Platelet Count 13 K/mm3 (150-400)
--- NOTE | 2019-05-01 22:17 | NUR ---
during bsr pt appeared well denined any pressing need and stated she was feeling better, when checked back in at end of report to obtain vs and start unit of prbc, pt had emisis bag and was filling it with black/dark grainy emisis, asked to have called and insisted that his # was on the board even went so far as to call Julia Pearl who was passing by and asked her to read the number from the board, she also assured the pt that nothing was on the board, called the pt's using the number in her chart and he also assured her that his number was not on her board, she had also seen some cobwebs on the celing that were not visible to staff, before starting prbc the hospitalist was contacted and he directed that the prbc be given, that labs be drawn prior and post and that the pt was to be monitored closely, he later called back to verify the status of the pt and to state that he wanted her move to ICU, passed the request to cn who offered to take care of it so that other pt's could receive their treatments in a timely mannor. called and gave report to ICU nurse, pt was transfered to ICU in her bed by the cn.
--- NOTE | 2019-05-01 23:36 | NUR ---
ASSUMED PT CARE FROM MAYE SAGE AT 2039 PT ARRIVED ON UNIT WITH A UNIT OF PRBC'S TRANSFUSING AT 100MLS/HR. TEMP 99.8; LUNG SOUNDS COARSE T/O WITH WEAK, NON-PRODUCTIVE COUGH NOTED. PT APPEARS ALERT AND ORIENTED X4; HOWEVER, IS NOTED TO BE FORGETFUL AND A POOR HISTORIAN. PER REPORT PT WAS FIXATED ON CALLING WITH VISUAL HALLUCINATIONS NOTED REGARDING SEEING COBWEBS IN HER ROOM. NO NOTED VISUAL HALLUCINATIONS SINCE TRANSFER NOTED; HOWEVER, PT DOES TEND TO RAMBLE ON WITH STORIES THAT DON'T ALWAYS MAKE SENSE. IT APPEARS PT HAD SUSTAINED A FALL AT HOME AND HIT HER HEAD; PT DENIED LOOSING ANY CONSCIOUSNESS, BUT SKYLA WHITMAN ORDERED A HEAD CT D/T HER BEING A POOR HISTORIAN. IT WAS ALSO REPORTED THAT PT HAD AN EPISODE OF COFFEE GROUND EMESIS; HOWEVER, PT HAS YET TO HAVE ANY EMESIS SINCE TRANSFER FROM [facility]. SKYLA WHITMAN DID ORDER ANOTHER UNIT OF PRBC'S TO BE ADMINISTERED WITH A F/U H&H POST TRANSFUSION D/T HEMOGLOBIN OF 6 AND LOW BP'S. SKYLA WHITMAN HAD NOTED PT WAS SEEN RECENTLY D/T GIB AND WAS TO F/U ON AN OUTPATIENT BASIS. PT CAN'T RECALL IF SHE EVER F/U WITH GI. ORDERS TO COLLECT OCCULT STOOL OR EMESIS WITH CONSULTS PLACED FOR IN THE MORNING; PROTONIX GTT STARTED. POTASSIUM BEING REPLACED IV D/T POTASSIUM OF 2.8. CALL LIGHT IS WITHIN REACH AND PT IS ABLE TO MAKE HER NEEDS KNOWN. HAS BEEN CALLED AND UPDATED REGARDING CONDITION.
[2019-05-02 00:49] LABS: Hemoglobin 7.5 g/dL (11.5-16.0)
--- NOTE | 2019-05-02 05:54 | NUR ---
END OF SHIFT SUMMARY PT HAS REMAINED ALERT AND ORIENTED, BUT FORGETFUL AND CONFUSED AT TIMES. SLURRED SPEECH WITHOUT DENTURES IN; EASY TO UNDERSTAND WITH DENTURES. PT TALKS NONSENSICAL AT TIMES. C/O NOT BEING ABLE TO SLEEP. WOULD WAKE UP STATING HER ARM HURT AFTER EACH BLOOD PRESSURE WOULD CYCLE; CHANGED TO Q30 MIN BP'S INSTEAD OF Q15. PT MEDICATED ONE TIME WITH FENTANYL D/T 03/29 BACK PAIN. BLOOD PRESSURES REMAINED STABLE T/O SHIFT. TOTAL OF TWO UNITS OF PRBC'S INFUSED THIS SHIFT. NO EMESIS OR STOOL NOTED THIS SHIFT; PT DENIES ANY NAUSEA. CALL LIGHT LEFT WITHIN REACH; ABLE TO UTILIZE ADEQUATELY IN ORDER TO MAKE NEEDS KNOWN. WILL CONTINUE TO MONITOR FOR CHANGES UNTIL REPORT IS HANDED OFF TO ONCOMING RN.
[2019-05-02 07:19] LABS: BASOPHILS ABSOLUTE AUTO 0.01 K/mm3 (0.00-0.23); BASOPHILS PERCENT AUTO 0 % (0-2); EOSINOPHILS ABSOLUTE AUTO 0.01 K/mm3 (0.00-0.68); EOSINOPHILS PERCENT AUTO 0 % (0-6); Hematocrit 20.5 % (33.0-51.0); Hemoglobin 6.8 g/dL (11.5-16.0); IMMATURE GRAN PERCENT AUTO 1 % (0-1); LYMPHOCYTES ABSOLUTE AUTO 0.71 K/mm3 (0.84-5.20); LYMPHOCYTES PERCENT AUTO 6 % (21-46); MONOCYTES ABSOLUTE AUTO 0.58 K/mm3 (0.16-1.47); MONOCYTES PERCENT AUTO 5 % (4-13); Mean Corpuscular HGB Conc 33.2 g/dL (31.5-36.5); Mean Corpuscular Volume 75 fL (80-100); NEUTROPHILS ABSOLUTE AUTO 11.32 K/mm3 (1.96-9.15); NEUTROPHILS PERCENT AUTO 89 % (41-73); NRBC Auto 2.4 /100 WBC (0.0-0.2); RDW Coefficient Variation 22.5 % (11.7-14.2); RDW Standard Deviation 57.5 fL (35.1-46.3); Red Blood Cell Count 2.72 M/mm3 (3.80-5.20); White Blood Cell Count 12.73 K/mm3 (4.00-11.30)
[2019-05-02 07:23] LABS: Platelet Count 3 K/mm3 (150-400)
[2019-05-02 07:25] LABS: Stool Occult Blood Guaiac 1 Pos (Neg)
--- NOTE | 2019-05-02 07:31 | NUR ---
START OF SHIFT NOTE: RECEIVED REPORT FROM LIVIA HANEY RN, ASSUMED CARE, PATIENT RESTING WITH EYES CLOSED, MCGOWAN CATHETER IN PLACE, VSS, HOWEVER, SBP IN MID 90'S, LUNG SOUNDS DIMINISHED, PATIENT AWAKES EASILY TO SPEECH, CONFUSED, YELLING OUT FOR HELP, REORIENTED, CRITICAL LAB VALUE OF PLATELET COUNT 3 RECEIVED, DR. CHIRINOS NOTIFIED, NEW ORDERS RECEIVED, CALL LIGHT IN REACH, WILL CONTINUE TO MONITOR.
--- NOTE | 2019-05-02 07:41 | NUR ---
PATIENT ASKED FOR BEDPAN AND TO CALL , WAS NOTIFIED THAT WE NEED TO GIVE HER ADDITIONAL PLATELETS, LOW GRADE TEMP OF 99.4, CALL LIGHT IN REACH, WILL CONTINUE TO MONITOR.
[2019-05-02 07:44] LABS: Alanine Aminotransfer (ALT/SGP 83 U/L (12-78); Albumin, Blood 2.7 g/dL (3.4-5.0); Albumin/Globulin Ratio 1.3 (0.8-1.8); Alk Phos 104 U/L (50-136); Anion Gap 8 mmol/L (6-16); Aspartate Aminotrans (AST/SGOT 75 U/L (12-37); Bilirubin, Total 3.3 mg/dL (0.1-1.0); Blood Urea Nitrogen 20 mg/dL (8-24); Bun/Creatinine Ratio 47.5 (12.0-20.0); CO2, Blood 30 mmol/L (21-32); Calcium, Blood 7.7 mg/dL (8.5-10.1); Chloride, Blood 89 mmol/L (98-108); Creatinine, Blood 0.42 mg/dL (0.40-1.00); Globulin, Blood 2.1 g/dL (2.2-4.0); Glomerular Filtration Rate >60 (60-); Glucose, Blood 98 mg/dL (70-99); Potassium, Blood 3.4 mmol/L (3.5-5.5); Sodium, Blood 127 mmol/L (136-145); Total Protein, Blood 4.8 g/dL (6.4-8.2)
--- NOTE | 2019-05-02 08:00 | NUR ---
DR. MUHAMMAD IN TO SEE PATIENT, NEW ORDERS RECEIVED.
--- NOTE | 2019-05-02 08:14 | NUR ---
PATIENT'S H/H DOWN TO 6.8/20.5 FROM 7.5/22.0, PATIENTS BLOOD PRESSURE IN 80'S, DR. MUHAMMAD NOTIFIED, NEW ORDERS RECEIVED, 250 CC BOLUS NS INFUSING, ONE UNIT OF PRBC'S ORDERED.
--- NOTE | 2019-05-02 08:15 | NUR ---
IN TO SEE PATIENT, DR. MUHAMMAD UPDATED , CALL LIGHT IN REACH, WILL CONTINUE TO MONITOR.
--- NOTE | 2019-05-02 09:18 | NUR ---
FIRST UNIT OF PLATELETS STARTED AFTER TAKING VS, PATIENT INSTRUCTED TO REPORT ITCHINESS, SOB, TACHYCARDIA, NAUSEA, FLUSHING, ETC., IMMEDIATELY, PATIENT VERBALIZED UNDERSTANDING, CALL LIGHT IN REACH, WILL CONTINUE TO MONITOR.
--- NOTE | 2019-05-02 09:56 | NUR ---
PATIENT'S NIECE CALLED, TRANSFERRED INTO ROOM TO SPEAK WITH PATIENT.
--- NOTE | 2019-05-02 10:28 | NUR ---
ONE UNIT OF PRBC'S STARTED, PATIENT WAS INSTRUCTED TO IMMEDIATELY NOTIFY THIS RN IF ANY SIGNS OF SYMPTOMS OF ITCHINESS, SOB, TACHYCARDIA, FLUSHING, ETC., NOTED, PATIENT AND VERBALIZED UNDERSTANDING, CALL LIGHT IN REACH, WILL CONTINUE TO MONITOR.
--- NOTE | 2019-05-02 10:31 | NUR ---
SECOND UNIT OF PLATELETS STARTED, PATIENT INSTRUCTED TO IMMEDIATELY NOTIFY THIS RN IS HE NOTES TACHYCARDIA, FLUSHING, SOB, ITCHINESS, ETC., PATIENT AND VERBALIZED UNDERSTANDING, CALL LIGHT IN REACH, WILL CONTINUE TO MONITOR.
--- NOTE | 2019-05-02 11:41 | NUR ---
SISTER RAJ WAS CALLED AND UPDATED ON PATIENT'S CONDITION AFTER OBTAINING PATIENT'S PERMISSION TO SPEAK WITH SISTER.
--- NOTE | 2019-05-02 12:00 | NUR ---
PATIENT'S SON CALLED, ON HIS WAY HERE FROM [place], UPDATE PROVIDED.
--- NOTE | 2019-05-02 13:00 | NUR ---
PT ASSISTED ONTO BEDPAN. WILL CALL WHEN DONE.
--- NOTE | 2019-05-02 14:15 | NUR ---
CALLED CT SCAN ABOUT PATIENT'S ORDERED ABDOMINAL SCAN, JORDAN WILL LET ME KNOW WHEN WE CAN COME DOWN.
--- NOTE | 2019-05-02 14:58 | NUR ---
DR. DAVIS IN TO SEE PATIENT.
[2019-05-02 15:33] LABS: Hematocrit 21.2 % (33.0-51.0); Hemoglobin 7.1 g/dL (11.5-16.0); Mean Corpuscular HGB 26.3 pg (26.0-34.0); Mean Corpuscular HGB Conc 33.5 g/dL (31.5-36.5); NRBC ABSOLUTE 0.42 K/mm3 (0.00-0.02); RDW Coefficient Variation 21.7 % (11.7-14.2); RDW Standard Deviation 59.4 fL (35.1-46.3); White Blood Cell Count 14.13 K/mm3 (4.00-11.30)
[2019-05-02 15:36] LABS: Mean Corpuscular Volume 79 fL (80-100)
[2019-05-02 15:38] LABS: Platelet Count 5 K/mm3 (150-400)
--- NOTE | 2019-05-02 15:38 | NUR ---
DR. MUHAMMAD NOTIFIED WITH NEW LAB RESULTS AND CRITICAL PLATELET COUNT OF 5, NO NEW ORDERS RECEIVED AT THIS TIME.
--- NOTE | 2019-05-02 16:55 | NUR ---
PATIENT TO CT WITH MONITOR AND ACCOMPANIED BY THIS RN, TOLERATED ABDOMINAL CT WELL.
--- NOTE | 2019-05-02 17:20 | NUR ---
PATIENT RETURNED TO ROOM, EATING DINNER, CALL LIGHT IN REACH, WILL CONTINUE TO MONITOR.
--- NOTE | 2019-05-02 17:44 | NUR ---
SHIFT SUMMARY NOTE: PATIENT REMAINS ALERT AND ORIENTED, H/H 6.8/20.5 THIS AM AND CRITICAL LOW PLATELETS OF 3, PATIENT RECEIVED 2 UNITS OF PLATELETS AND ONE UNIT OF PRBC'S, H/H REDRAWN AND NOW 7.1/21.2, PLATELETS REMAIN CRITICALLY LOW AT 5, DR. MUHAMMAD AWARE, PT HAD NUMEROUS SMALL/MEDIUM/AND LARGE BM'S TODAY, ALL HARD PELLETS MIXED WITH RED/MELENA TINGED BLOOD, VSS, LOW GRADE TEMP OF 99.1, SBP IN 90'S TO LOW 100'S, CHRONIC A-FIB WITH HR BETWEEN 80'S - 100'S, PROTONIX DRIP INFUSING, RECEIVED FENTANYL 50 MCG TWICE FOR CHRONIC BACK PAIN, MCGOWAN CATHETER IN PLACE, LUNG SOUNDS ARE COARSE AND SOME WHEEZES NOTED, PATIENT HAD ABDOMINAL CT DONE THIS AFTERNOON, AWAITING RESULTS, DR. DAVIS IN, NO EGD AT THIS TIME, PATIENT IS ON A CLEAR LIQUID DIET AND HAS NO PROBLEM SWALLOWING BUT C/O "THE SAME OLD FOOD EVERY TIME", AT BEDSIDE, FOR DETAILS SEE SHIFT ASSESSMENT DOCUMENTATION AND NURSES NOTES, CALL LIGHT IN REACH, WILL CONTINUE TO MONITOR AND GIVE REPORT TO ONCOMING SUBSTANCE ABUSE THERAPIST.
--- NOTE | 2019-05-02 19:20 | NUR ---
ASSUMED CARE BEDSIDE REPORT RECIEVED. PT IS LAYING IN BED, AWAKE, ALERT, AND ORIENTED. PT FOLLOWS COMMANDS APPROPRIATELY. PT WITH PERIODS OF CONFUSION/FORGETFULNESS. VITAL SIGNS STABLE WITH PT ON ROOM AIR. PT COMPLAINING OF ABD AND BACK PAIN AT THIS TIME. NO ACUTE SIGNS OF GI BLEEDING NOTED. MCGOWAN IN PLACE WITH YELLOW OUTPUT NOTED. PROTONIX GTT INFUSING AT 10 ML/HR. WILL CONTINUE TO MONITOR.
[2019-05-03 03:34] LABS: BASOPHILS ABSOLUTE AUTO 0.02 K/mm3 (0.00-0.23); BASOPHILS PERCENT AUTO 0 % (0-2); EOSINOPHILS ABSOLUTE AUTO 0.03 K/mm3 (0.00-0.68); EOSINOPHILS PERCENT AUTO 0 % (0-6); IMMATURE GRAN ABSOLUTE AUTO 0.08 K/mm3 (0.00-0.10); IMMATURE GRAN PERCENT AUTO 1 % (0-1); LYMPHOCYTES ABSOLUTE AUTO 0.53 K/mm3 (0.84-5.20); LYMPHOCYTES PERCENT AUTO 4 % (21-46); MONOCYTES ABSOLUTE AUTO 0.73 K/mm3 (0.16-1.47); MONOCYTES PERCENT AUTO 5 % (4-13); Mean Corpuscular HGB 25.8 pg (26.0-34.0); Mean Corpuscular HGB Conc 33.3 g/dL (31.5-36.5); Mean Corpuscular Volume 77 fL (80-100); NEUTROPHILS ABSOLUTE AUTO 13.06 K/mm3 (1.96-9.15); NEUTROPHILS PERCENT AUTO 90 % (41-73); NRBC ABSOLUTE 0.34 K/mm3 (0.00-0.02); NRBC Auto 2.4 /100 WBC (0.0-0.2); RDW Coefficient Variation 21.1 % (11.7-14.2); RDW Standard Deviation 57.8 fL (35.1-46.3); Red Blood Cell Count 2.25 M/mm3 (3.80-5.20); White Blood Cell Count 14.45 K/mm3 (4.00-11.30)
[2019-05-03 03:43] LABS: Hematocrit 17.4 % (33.0-51.0); Hemoglobin 5.8 g/dL (11.5-16.0); Platelet Count 2 K/mm3 (150-400)
[2019-05-03 03:45] LABS: Alanine Aminotransfer (ALT/SGP 51 U/L (12-78); Albumin, Blood 2.3 g/dL (3.4-5.0); Albumin/Globulin Ratio 1.3 (0.8-1.8); Alk Phos 76 U/L (50-136); Anion Gap 7 mmol/L (6-16); Aspartate Aminotrans (AST/SGOT 38 U/L (12-37); Bilirubin, Direct 1.5 mg/dL (0.0-0.3); Bilirubin, Indirect 1.4 mg/dL (0.1-0.7); Bilirubin, Total 2.9 mg/dL (0.1-1.0); Blood Urea Nitrogen 19 mg/dL (8-24); Bun/Creatinine Ratio 53.2 (12.0-20.0); CO2, Blood 31 mmol/L (21-32); Calcium, Blood 7.2 mg/dL (8.5-10.1); Chloride, Blood 92 mmol/L (98-108); Creatinine, Blood 0.36 mg/dL (0.40-1.00); Globulin, Blood 1.8 g/dL (2.2-4.0); Glomerular Filtration Rate >60 (60-); Glucose, Blood 102 mg/dL (70-99); Sodium, Blood 130 mmol/L (136-145); Total Protein, Blood 4.1 g/dL (6.4-8.2)
--- NOTE | 2019-05-03 06:07 | NUR ---
SHIFT SUMMARY PT HAS REMAINED AWAKE THROUGHOUT MOST OF THE NIGHT. PT IS ALERT AND ORIENTED WITH PERIODS OF CONFUSION. PT HAS CONTINUED TO COMPLAIN OF ABD AND BACK PAIN DESPITE PRN FENTANYL AND REPOSITIONING. PT WITH MULTIPLE ATTEMPTS TO HAVE BM WITH NO SUCCESS THROUGHOUT THE SHIFT. VITAL SIGNS HAVE REMAINED STABLE, PT ON ROOM AIR. PROTONIX GTT INFUSING AT 10 ML/HR. KCL IVPB INFUSING AT THIS TIME. 1 UNIT PRBC'S INFUSING AT THIS TIME. MCGOWAN REMAINS IN PLACE WITH GLEN COLORED OUTPUT. WILL CONTINUE TO MONITOR AND REPORT OFF TO ONCOMING RN.
--- NOTE | 2019-05-03 07:15 | NUR ---
START OF SHIFT NOTE: RECEIVED REPORT FROM J CARLOS FOSTER RN, ASSUMED CARE, PATIENT IS AWAKE AND SLIGHTLY CONFUSED, POSSIBLY SUNDOWNERS, CALLS OUT AND WISHES TO GET OUT OF BED, REORIENTED, LUNG SOUNDS CLEAR, PATIENT IN A-FIB WITH HR BETWEEN 80'S TO 100'S, BOWEL TONES PRESENT BUT HYPOACTIVE, MCGOWAN CATHETER IN PLACE, PATIENT CONTINUES ON PROTONIX DRIP AT 10 CC/HR, ALSO HAS POTASSIUM CHLORIDE INFUSING FOR A K+ OF 3.0, ONE UNIT OF PRBC'S INFUSING AT THIS TIME, PATIENT HAS A LOW GRADE TEMP OF 99.2, DENIES PAIN AT THIS TIME, CALL LIGHT IN REACH, WILL CONTINUE TO MONITOR.
--- NOTE | 2019-05-03 08:11 | NUR ---
PRBC'S DONE, ONE UNIT OF PLATELETS INFUSING AT THIS TIME, AND SON WITH AT BEDSIDE, PATIENT EATING BREAKFAST, CALL LIGHT IN REACH, WILL CONTINUE TO MONITOR.
--- NOTE | 2019-05-03 09:20 | NUR ---
DR. DAVIS IN TO SEE PATIENT, NEW ORDERS RECEIVED, FAMILY AT BEDSIDE, PATIENT ATE ALL OF BREAKFAST, TOOK AM ORAL MEDICATIONS WITHOUT ANY PROBLEM SWALLOWING, CALL LIGHT IN REACH, WILL CONTINUE TO MONITOR.
--- NOTE | 2019-05-03 10:20 | NUR ---
PATIENT RECEIVED ORDERED ENEMA, PATIENT POOPED SOME HARD PELLETS, SOME MELENA COLORED OLD BLOOD NOTED, CHANGED AND REPOSITIONED, CALL LIGHT IN REACH, WILL CONTINUE TO MONITOR.
--- NOTE | 2019-05-03 11:00 | NUR ---
PATIENT'S SISTER STARR CALLED, UPDATE ON PATIENT CONDITION PROVIDED.
--- NOTE | 2019-05-03 12:06 | NUR ---
RT CALLED, PATIENT ASKING FOR A BREATHING TREATMENT.
--- NOTE | 2019-05-03 12:18 | NUR ---
RT IN TO GIVE REQUESTED BREATHING TREATMENT.
--- NOTE | 2019-05-03 13:12 | NUR ---
CAROTID ULTRASOUND FINISHED, NOTIFIED BY LINOLEUM PRINTER THAT RIGHT SIDE IS APPROX. 50-69 % STENOSED, AND LEFT CAROTID IS GREATER THAN 70 % STENOSED, DR. LAYNE NOTIFIED WITH PRELIMINARY RESULTS, NO NEW ORDERS RECEIVED.
--- NOTE | 2019-05-03 13:38 | NUR ---
PER PHARMACY DR. SCHWARTZ, HEMATOLOGY PLACED TREATMENT ORDERS FOR PATIENT, HOWEVER, WILL NEED A CHEAMOTHERAPY CERTIFIED NURSE TO ADMINISTER IV MEDICATION, PHARMACY TO COORDINATE. PATIENT WAS AGREEABLE EARLIER TO GO THE HOSPICE ROUTE, DR. MUHAMMAD, AND MAYE GUAMAN, PALLIATIVE CARE, NOTIFIED BY PAIGE GLASS, CHARGE NURSE, THEN PATIENT RESCINDED HER DECISION, DENIZ, PALLIATIVE CARE IN TO SPEAK WITH PATIENT AND SHE AGREED TO BE MOVED TO MEDICAL FLOOR WHERE IS ABLE TO TAKE HER OUTSIDE TO SMOKE, AWAITING DR. MUHAMMAD TO SEE PATIENT AND GIVE NEW ORDERS.
--- NOTE | 2019-05-03 13:39 | NUR ---
Received call from bedside nurse Meseret Barth and she reports Pt is considering home with hospice. Called and spoke with Dr Thompson and discussed case. Dr Thompson reports Pt would be appropriate for hospice but would like Pt to considered targeted therapy and may benefit Pt. Dr Thompson reports Pt's consideration for going home may be due to wanting to smoke cigarrettes. Pt is A&Ox3 and is unable to give appropriate reason for hospital stay. Discussed reason for considering hospice and Pt reports she wants to be home to help her . Inquired if part of reason is the freedom to smoke and Pt confirms wanting to smoke is influencing her decision. Discussed Dr Mota recommendation for therapy and discussed Dr Thompson's consideration of transfering to medical floor. Suggested once on medical floor her may be able to wheel her out to smoke. Pt is agreeable to starting treatment and likes the idea of transfering to medical floor. Pt reprots no other concerns at this time. Spoke with bedside nurse Suki and discussed case. Suki reports concerns of Pt being contipated and impacted with little success and results of current treatment. Suggested Senna S scheduled BID as an option to discuss with Dr Thompson with keeping Miralax as PRN. Palliative Care will remain available.
--- NOTE | 2019-05-03 13:45 | NUR ---
DR. MUHAMMAD NOTIFIED ABOUT ORDERS FROM DR. SCHWARTZ AND PATIENT'S AGREEMENT TO BE MOVED TO MEDICAL FLOOR AND START TREATMENT PER DR. SCHWARTZ. DR. MUHAMMAD IN TO SEE PATIENT AT THIS TIME.
--- NOTE | 2019-05-03 13:53 | NUR ---
SPOKE WITH BERNARD RN, MEDICAL FLOOR, SHE WILL ADMINISTER CHEMOTHERAPY TREATMENT ONCE PATIENT IS MOVED TO MEDICAL FLOOR.
--- NOTE | 2019-05-03 15:10 | NUR ---
RECEIVED REPORT FROM MAYE MARTINEZ
--- NOTE | 2019-05-03 15:30 | NUR ---
REPORT CALLED TO MAYE RITTER, ON MEDICAL FLOOR, WILL TRANSFER PATIENT TO ROOM 333 VIA BED.
--- NOTE | 2019-05-03 18:15 | NUR ---
1700 RITUXAN ADMINISTRATION PREMEDS GIVEN ORDERED. VSS. S/SX OF ADVERSE REACTION REVIEWED WITH PT AND FAMILY AT BEDSIDE. PT EDUCATION HANDOUT GIVEN TO PT. IV RIGHT FA PATENT WITH POSITIVE BLOOD RETURN.
--- NOTE | 2019-05-03 18:19 | NUR ---
RITUXAN ADMINISTRATION PT MAURILIO WELL, NO COMPLAINTS. VSS
--- NOTE | 2019-05-03 18:22 | NUR ---
SHIFT SUMMARY TRANSFER FROM ICU FOR CHEMO MED INFUSION. OX3 CONFUSED AT TIMES. GIVEN ENEMA FOR CONSTIPATION THIS A.M. IN ICU WITH GOOD RESULTS PER PATIENT. CHRONIC ANASARCA. HYPOTENSIVE. LOW GRADE TEMP. 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
--- NOTE | 2019-05-04 04:01 | NUR ---
DNR. LS COARSE, DENIES SOB. NO C/O NAUSEA. PT WAS ORIGINALLY CONSTIPATED AND ABDOMEN WAS VERY DISTENDED AND FIRM. RECEIVED MIRALAX AND COLACE BEFORE BED. PT NOW HAVING LOOSE, INC BLOODY STOOLS. NOT A NEW FINDING. PT CHANGED MULTIPLE TIMES THROUGHOUT THE NIGHT BUT STILL MANAGED TO GET SLEEP PAIN RATED 8/10 IN UPPER ABDOMEN. 25MCG FENTANYL GIVEN @ 2024. 3+ EDEMA IN LE'S. SKIN IS VERY JAUNDICED. IV IN R WRIST AND R F.A. ARE NOW SL. TELE SHOWS AFIB IN THE 120'S. MCGOWAN DRAINING CLEAR DARK GLEN OUTPUT. BP HAS BEEN SOFT, 80'S-90'S SBP. H&H, PLT, NA, AND K LABS ARE LOW. PT IS CONCERNED ABOUT GOING OUTSIDE TO SMOKE. UNSURE OF DC PLAN B/C PT STATES SHE IS NOT READY FOR HOSPICE CARE, BUT WILL REVISIT THIS TOPIC WITH
[2019-05-04 05:40] LABS: BASOPHILS ABSOLUTE AUTO 0.01 K/mm3 (0.00-0.23); BASOPHILS PERCENT AUTO 0 % (0-2); EOSINOPHILS PERCENT AUTO 0 % (0-6); IMMATURE GRAN ABSOLUTE AUTO 0.04 K/mm3 (0.00-0.10); IMMATURE GRAN PERCENT AUTO 1 % (0-1); LYMPHOCYTES ABSOLUTE AUTO 0.07 K/mm3 (0.84-5.20); LYMPHOCYTES PERCENT AUTO 1 % (21-46); MONOCYTES ABSOLUTE AUTO 0.13 K/mm3 (0.16-1.47); MONOCYTES PERCENT AUTO 2 % (4-13); Mean Corpuscular HGB Conc 32.5 g/dL (31.5-36.5); NEUTROPHILS ABSOLUTE AUTO 8.14 K/mm3 (1.96-9.15); NEUTROPHILS PERCENT AUTO 97 % (41-73); NRBC ABSOLUTE 0.42 K/mm3 (0.00-0.02); RDW Coefficient Variation 21.4 % (11.7-14.2); RDW Standard Deviation 62.4 fL (35.1-46.3); Red Blood Cell Count 1.96 M/mm3 (3.80-5.20); White Blood Cell Count 8.39 K/mm3 (4.00-11.30)
[2019-05-04 05:42] LABS: Mean Corpuscular Volume 80 fL (80-100)
[2019-05-04 05:44] LABS: Platelet Count 6 K/mm3 (150-400)
[2019-05-04 05:45] LABS: Hematocrit 15.7 % (33.0-51.0); Hemoglobin 5.1 g/dL (11.5-16.0)
[2019-05-04 05:45] LABS: Alanine Aminotransfer (ALT/SGP 47 U/L (12-78); Albumin, Blood 2.8 g/dL (3.4-5.0); Albumin/Globulin Ratio 1.4 (0.8-1.8); Alk Phos 76 U/L (50-136); Anion Gap 8 mmol/L (6-16); Aspartate Aminotrans (AST/SGOT 34 U/L (12-37); Bilirubin, Total 3.7 mg/dL (0.1-1.0); Blood Urea Nitrogen 23 mg/dL (8-24); Bun/Creatinine Ratio 56.1 (12.0-20.0); CO2, Blood 30 mmol/L (21-32); Calcium, Blood 7.8 mg/dL (8.5-10.1); Chloride, Blood 93 mmol/L (98-108); Creatinine, Blood 0.41 mg/dL (0.40-1.00); Glomerular Filtration Rate >60 (60-); Glucose, Blood 132 mg/dL (70-99); Potassium, Blood 3.6 mmol/L (3.5-5.5); Sodium, Blood 131 mmol/L (136-145); Total Protein, Blood 4.8 g/dL (6.4-8.2)
--- NOTE | 2019-05-04 10:50 | NUR ---
PT ASSIGNED TO ICU 8. WILL REVIEW CHART AND CALL FOR REPORT.
--- NOTE | 2019-05-04 11:40 | NUR ---
PT TO ICU 8 VIA BED. ALERT AND ORIENTED. VS CHARTED.
--- NOTE | 2019-05-04 11:50 | NUR ---
DR DAVIS TO ROOM TO DISCUSS WHY NO SCOPE WILL BE DONE AT THIS TIME. PT VERBALIZED UNDERSTANDING.
--- NOTE | 2019-05-04 12:15 | NUR ---
PLTS INFUSION COMPLETE.
--- NOTE | 2019-05-04 12:19 | NUR ---
PT MEDICATED WITH FENTANYL PER EMAR FOR ABD PAIN. PT REFUSED ERYTHROMYCIN. JAH MIST PROVIDED. MULT FAMILY AT BEDSIDE.
--- NOTE | 2019-05-04 12:47 | NUR ---
PRBC STARTED. PT STATES PAIN 5/10. DENIES NAUSEA. LAB AT BEDSIDE FOR DRAW.
--- NOTE | 2019-05-04 14:15 | NUR ---
PT MEDICATED WITH 50MCG FENTANYL IV FOR PAIN. BLOOD INFUSING WELL.
--- NOTE | 2019-05-04 14:45 | NUR ---
PT RESTING IN POSITION OF COMFORT. SATS 100%. WILL CONT TO MONITOR.
--- NOTE | 2019-05-04 15:13 | NUR ---
BLOOD INF COMPLETE. LINE FLUSHING WITH NS. PT SITTING UP NOW. CALLED FAMILY ON THE PHONE. ICU STAFF TO START EXT DWELL.
--- NOTE | 2019-05-04 15:32 | NUR ---
UNIT 1 OF FFP STARTED.
--- NOTE | 2019-05-04 15:58 | NUR ---
PT MEDICATED WIOTH 50MCG FENTANYL PER EMAR. 2ND UNIT FFP INFUSING THROUGH POWR GLIDE TO PIERRE.
--- NOTE | 2019-05-04 16:28 | NUR ---
FFP COMPLETE. VSS. PT STATES PAIN IMPROVED. 01/27 TO ABD. PT WATCHING TV.
--- NOTE | 2019-05-04 16:43 | NUR ---
SPOKE WITH DR MUHAMMAD RE NO NEW LAB ORDERS. VO FOR CBC WITHOUT DIFF FOR NOW. RESULTS TO BE CALLED TO DR MUHAMMAD.
--- NOTE | 2019-05-04 16:50 | NUR ---
BLOOD DRAWN FROM TIFFANI CHARLES. NASRIN MOSLEY AT BEDSIDE.
[2019-05-04 17:11] LABS: Hematocrit 20.8 % (33.0-51.0); Hemoglobin 6.9 g/dL (11.5-16.0); Mean Corpuscular HGB 27.7 pg (26.0-34.0); Mean Corpuscular HGB Conc 33.2 g/dL (31.5-36.5); NRBC Auto 7.5 /100 WBC (0.0-0.2); RDW Standard Deviation 57.6 fL (35.1-46.3); Red Blood Cell Count 2.49 M/mm3 (3.80-5.20); White Blood Cell Count 11.96 K/mm3 (4.00-11.30)
--- NOTE | 2019-05-04 17:15 | NUR ---
DINNER TRAY PROVIDED. ASSISTED PT IN SITTING UP. FAMILY AT BEDSIDE.
[2019-05-04 17:20] LABS: Mean Corpuscular Volume 84 fL (80-100)
[2019-05-04 17:24] LABS: Platelet Count 27 K/mm3 (150-400)
--- NOTE | 2019-05-04 17:28 | NUR ---
DR MUHAMMAD CALLED WITH CRITICAL LAB RESULTS. VERBAL ORDER FOR CBC WITHOUT DIFF FOR TOMORROW AM. PT UPDATED.
--- NOTE | 2019-05-04 17:51 | NUR ---
IVF STARTED. NEW BAG OF PROTONIX STARTED. PT MEDICATED WITH FENTANYL PER EMAR.
--- NOTE | 2019-05-04 19:00 | NUR ---
PT CALLING OUT. ASKING FOR SOMEONE TO SIT WITH HER. "I JUST GET SO BORED" EXPLAINED TO PT THAT SHE IS IN THE ICU AND THAT STAFF WILL BE IN AND OUT.
--- NOTE | 2019-05-04 19:30 | NUR ---
ASSUMED CARE OF PT, BEDSIDE REPORT RECEIVED. PT IS ALERT AND ORIENTED AT THIS TIME, DENIES N/V, DENIES CP/PRESSURE, ADMITS TO EPIGASTRIC PAIN 8/10, SHARP AND CONSTANT IN NATURE, STATES THAT THIS IS ONGOING FOR YEARS AND THAT PAIN MEDICATION IS WHAT PROVIDES RELIEF OF PAIN, 4/10 IS REPORTED GOOD PAIN CONTROL HOWEVER PT STATES THAT SHE HAS RARELY ACHIEVED THIS PAIN SCORE AT HOME. SHE ALSO ADMITS TO LOW BACK PAIN AT 8/10 THAT IS SHARP AND CONSTANT IN NATURE AND ONGOING FOR YEARS WELL. LUNGS HAVE COARSE EXPIRATORY SOUNDS THAT CLEAR WITH COUGH, RATE MID TEENS TO 20, SATS MAINTAINING ON ROOM AIR. HR IRREG, AFIB NOTED ON MONITOR, PT IS NOTED TACHYCARDIC WILL ADMIN HS MEDS AND FENTANYL FOR PAIN AND MONITOR HEART RATE, PRESSURE MAINTAINING AT THIS TIME, PULSES PRESENT X 4 EXTREMITIES. ABD SOFT, HYPERACTIVE BOWEL TONES ARE NOTED, SOME TENDERNESS REPORTED WITH PALPATION. MCGOWAN CATH IN PLACE DRAINING CLEAR GLEN URINE TO GRAVITY. PROTONIX GTT TO LEFT UPPER ARM EXTENDED DWELL AND SL NOTED TO RIGHT FOREARM, SITES WNL, WITHOUT REDNESS, SWELLING OR DRAINAGE.
--- NOTE | 2019-05-04 21:50 | NUR ---
TACHYCARDIA TACHYCARDIA CONTINUES, J CARLOS PALACIOS, HOSPITALIST CUSTOMER ACCOUNT EXECUTIVE CONTACTED, DISCUSSED PT HEART RATES CONSISTENTLY GREATER THAN 120 AND REACHING 170-180 FOR BRIEF DURATIONS. ORDERS RECEIVED FOR LOPRESSOR 2.5 MG IV X 1 AND MAY REPEAT X 1 IF PT'S PRESSURE MAINTAINS WELL H&H NOW.
[2019-05-04 22:05] LABS: Hematocrit 20.5 % (33.0-51.0); Hemoglobin 6.8 g/dL (11.5-16.0)
--- NOTE | 2019-05-05 01:44 | NUR ---
TACHYCARDIA PT RATES 140-150S, CALL PLACED TO DR GAY, HOSPITALIST PUBLIC HEALTH ANALYST, DISCUSSED PT'S HEART RATE TREND SINCE ADMIT, DISCUSSED PT'S HOME DOSE OF CARDIZEM VS CURRENTLY ORDERED DOSE. ORDERS RECEIVED FOR LOPRESSOR 5 MG IV NOW AND Q6 HOURS NEEDED FOR HEART RATE GREATER THAN 130, DISCUSSED PREVIOUSLY ADMINISTERED LOPRESSOR 5 MG IV'S TIME OF ADMINISTRATION WELL EFFECT ON PT'S HEART RATE, WILL ADMIN PER ORDERS. ORDER ALSO RECIEVED FOR PRBCS 1 UNIT.
--- NOTE | 2019-05-05 06:38 | NUR ---
PT REMAINS AWAKE THROUGHOUT SHIFT, HAS STATED THAT SHE IS FRUSTRATED THAT SHE CANNOT SLEEP. PAIN CONTINUES AT 8/10 HOWEVER IS IMPROVED TO 5/10 FOLLOWING FENTANYL IV. LUNGS CONTINUE WITH COARSE EXPIRATORY WHEEZE INTERMITTENTLY THAT CLEARS WITH COUGH, SATS MAINTAINING ON ROOM AIR. AFIB CONTINUES WITH RATES UP TO 150S OF THIS TIME, DISCUSSED WITH DR GAY, HOSPITALIST LAB NURSE AND ORDERS RECEIVED FOR LOPRESSOR IV, DID DISCUSS WITH HIM THAT LOPRESSOR HAD BEEN GIVEN NEAR 2200 WITH LITTLE EFFECT ON HEART RATE AND DISCUSSED PT'S HOME MEDICATIONS VS ORDERED INPATIENT MEDICATIONS, HE CONFIRMED THAT HE DOES WANT THE LOPRESSOR ADMINISTERED AND TO MAINTAIN MEDICATIONS CURRENTLY ORDERED PROVIDED THE PATIENT CONTINUES ASYMPTOMATIC. DR GAY DID ALSO INQUIRE REGARDING PT'S H&H, PRBCS 1 UNIT ORDERED TRANSFUSED AND ADMINISTERED, PT TOLERATED WELL. SHE IS NOTED TO HAVE INTERMITTENT PERIODS OF CONFUSION ONGOING BUT REMAINS EASILY REDIRECTABLE AND REORIENTED.
[2019-05-05 07:36] LABS: Hematocrit 24.5 % (33.0-51.0); Hemoglobin 8.1 g/dL (11.5-16.0); Mean Corpuscular HGB Conc 33.1 g/dL (31.5-36.5); Mean Corpuscular Volume 82 fL (80-100); NRBC ABSOLUTE 0.73 K/mm3 (0.00-0.02); RDW Coefficient Variation 18.5 % (11.7-14.2); RDW Standard Deviation 54.4 fL (35.1-46.3); White Blood Cell Count 14.53 K/mm3 (4.00-11.30)
[2019-05-05 07:41] LABS: Platelet Count 21 K/mm3 (150-400)
--- NOTE | 2019-05-05 07:43 | NUR ---
ASSUMED CARE REPORT FROM VINICIUS ARCHIBALD RN. PAT AWAKE, ATTEMPTING TO USE CALL FOR TV. BILATERAL PITTING PEDAL EDEMA WITH WRINKLING TO INDICATE IT HAS DECREASED. SHE IS A&O, BUT HAS DIFFICULTY WITH CALL LIGHT AND TELEPHONE. SHE HAS GLASSES X2 ON BEDSIDE TABLE, BUT SHE SAYS THEY DON'T HELP. WHEN ASKED ABOUT HER PREVIOUS REQUEST FOR HOME ON HOSPICE, SHE SAID HER SAID NO BECAUSE HE CAN'T CARE FOR HER.
--- NOTE | 2019-05-05 08:26 | NUR ---
MD VISIT DR. MUHAMMAD IN
--- NOTE | 2019-05-05 11:58 | NUR ---
SHORTLY BEFORE 11 AM, PATIENT C/O OF NOT FEELING WELL AND SAID SHE COULDN'T BREATHE. BIOX 94% ON RA. HR AFIB 150'S -200. IV METOPROLOL 5 MG GIVEN WITH NO RELIEF. CONSULTED DR. MUHAMMAD BY TELEPHONE. ORDER FOR AMIODARONE BOLUS AND GTT AND CARDIOLOGY CONSULT RECEIVED AND IMPLEMENTED.
--- NOTE | 2019-05-05 12:04 | NUR ---
PATIENT REPORTS RELIEF AMIODARONE BOLUS INFUSING AND HR SLOWED.
--- NOTE | 2019-05-05 12:33 | NUR ---
NOW THAT HR HAS IMPROVED, PATIENT WANTS TO GO HOME. SHE IS REQUESTING TO SPEAK TO DR. MUHAMMAD BECAUSE WE ARE KEEPING HER HERE AGAINST HER WILL. DR. DAVIS IN. DX ACUTE ENCEPHALOPATHY. SHE SAYS SHE IS NOT IN THE HOSPITAL. SHE IS AT [facility].
--- NOTE | 2019-05-05 15:51 | NUR ---
VISITORS IN PATIENT SEEMS MUCH HAPPIER AND NOT ASKING TO LEAVE WHILE VISITORS AND FAMILY ARE IN
--- NOTE | 2019-05-05 15:53 | NUR ---
AFIB IS RATE CONTROLLED ON AMIODARONE GTT
--- NOTE | 2019-05-05 16:10 | NUR ---
MD VISIT DR. SUH IN
--- NOTE | 2019-05-05 17:10 | NUR ---
FAMILY HAS DECIDED WITH PATIENT TO PROCEED WITH COMFORT CARE WHILE IN THE HOSPITAL WITH A GOAL TO GO HOME ON HOSPICE. PROTONIX GTT ND AMIODARONE STOPPED. FENTANYL 50 MCG IV GIVEN FOR PAIN
--- NOTE | 2019-05-05 17:29 | NUR ---
Clinical Visit: Called by ICU nurse, Kim. She states that pt is lucid at this time, comfort care /hospice discussion desired by pt and family. Pt is alert, oriented. She has many family members present, including her , her son, and one of her sisters. She reports that she has been suffering and she doesn't want to suffer anymore. She is aware that she has many health issues that will end her life. She is requesting to be comfortable, have her pain managed and eat what she wants. Reviewed comfort care measures, hospice services. The main concern of her family is that her elderly is unable to care for her. Their best idea is for the pt to move to [place] with her son so that he can help care for her in his home for her safety. Caregivers would have to be 24 hours per day, per the son and rest of the family. Pt's is okay with having caregivers in the home and pt prefers to stay in her own home. Call placed to Dr. Thompson. Comfort care orders placed. janitorial services supervisor referal to assist with caregivers placed, along with hospice referal. No other concerns at this time. Will remain available.
--- NOTE | 2019-05-05 17:45 | NUR ---
REPORT GIVEN TO MAYE VIRAMONTES. PATIENT MOVING TO 341
--- NOTE | 2019-05-05 17:53 | NUR ---
Spiritual Care intial note: I met with Leatha earlier in shift. She was alone in room and kept repeating that she wanted her . She responded well to assurance of care and attention. She allowed me to pray for her. She appears fragile and weak. Was also repetative. She did not want conversation and told me she was in pain. Informed RN. I will remain available to pt and family.
--- NOTE | 2019-05-05 18:17 | NUR ---
PT TRANSFERED. PT TRANSFERED ON COMFORT CARE. PT STATES SHE IS COMFORTABLE AT THIS TIME. PT ORIENTED TO ROOM. CALL LIGHT IN REACH. WILL CONTINUE TO MONITOR.
--- NOTE | 2019-05-05 19:30 | NUR ---
PT AND PT FAMILY REQUESTS ASSISTANCE WITH HELPING PT GET OOB SO SHE CAN GO OUTSIDE AND SMOKE. PT 2 PER MAX ASSIST c GAITBELT TRANSFERRED TO W/C. OUTSIDE TO SMOKE WITH FAMILY AT THIS TIME.
--- NOTE | 2019-05-05 22:30 | NUR ---
ANXIETY/PAIN PT IS TEARFUL, CALLING OUT "IM SCARED, I DONT WANT TO ALONE". THIS RN AT BEDSIDE TO PROVIDE THERAPEUTIC LISTENING, PT DE-ESCALATES AT THIS TIME. ADMINISTERED 1MG IV ATIVAN AND 10 ML OF ROXANOL. PT IS NOW RESTING AT THIS TIME.
--- NOTE | 2019-05-06 05:14 | NUR ---
PT WOKE THIS AM CONFUSED AND ANXIOUS. PT DID NOT KNOW WHERE SHE WAS / WHY SHE WAS HERE. REORIENTED PT. PT FELL BACK ASLEEP
--- NOTE | 2019-05-06 05:47 | NUR ---
SHIFT SUMMARY COMFORT MEASURES MAINTAINED TONIGHT. PT TREATED TWICE FOR PAIN WITH 10MG SL ROXANOL AND ONCE FOR ANXIETY WITH 1MG IV FENTANYL. PROVIDES RELIEF. PT IS A&OX4, BUT MORE CONFUSED THIS AM UPON WAKING. DARK RED/BLACK STOOL NOTED THIS AM. PT OUT TO SMOKE WITH FAMILY AT START OF SHIFT, TRANSFERS 2 PER MAX ASSIST c GAITBELT TO W/C. WILL CONT TO MONITOR AND PROVIDE CARE UNTIL PRESUMED BY ONCOMING RN.
--- NOTE | 2019-05-06 11:09 | NUR ---
Comfort Care Visit: Pt resting in bed and appears significantly anxious as evidenced by flailing of hands and head. Bedside nurse Carmen is present offering additional comfort medications of Roxinol and Ativan. Pt recently received Ativan with little benefit. Family at bedside and appears anxious. Spoke with Dr Quarles and discussed case. Placed order for haloperidol oral concentrate 1mg to 2mg Q 6 hours as needed for agitation per V/O from Dr Quarles. Palliative Care will remain available for symptom management.
--- NOTE | 2019-05-06 17:36 | NUR ---
Pt visit this afternoon. Pt is resting in bed and appears anxious as evidenced by flailing of head and moaning with little benefit from current regimen. Pt appears to be experiencing terminal restlessness. Mottling noted on left upper extremity. Secretions noted. Assisted bedside nurse Carmen in changing linen, gown, and repositioning. Educated family on possible S/S Pt may experience. Pt is not responding verbaly besides the moaning and opens her eyes briefly intermittently. Collaborated with bedside nurse Carmen, Palliative Care nurse Jacqueline, hospital pharmacy, and Dr Quarles. Decision was made to order Fentanyl and give for symptom management instead of Roxinol in case Pt is having a reaction to Roxinol. Palliative Care will remain available.
--- NOTE | 2019-05-06 18:09 | NUR ---
SHIFT SUMMARY PT HAS BEEN VERY RESTLESS THIS SHIFT. IT HAS BEEN DIFFICULT TO FIND COMFORT FOR THE PT. FAMILY AT BEDSIDE & CONCERNED ABOUT PT DISCOMFORT. PT MEDICATED ALLOWED FOR SYMPTOM MANAGMENT WITH LITTLE RELIEF. PT HAD ABOUT 3HRS THIS SHIFT FOR COMFORTABLE SLEEP. PT HAS BEEN ON & OFF RESTLESS & MOANING MOST THE SHIFT. PALLATIVE CARE CONSULTED ABOUT PT CONDITION. PALLITIVE RN, DENIZ, EDUCATED PT ON THE DIFFERENT STAGES OF DYING. THIS RN & PALLATIVE TEAM WORKED TO BRAINSTORM STRATEGIES TO IMPROVE PT COMFORT. FENTANYL ADDED TO PT PLAN OF CARE TO SEE IF IT WILL ASSIST WITH PT COMFORT BETTER. PALLATIVE CARE NURSES, DENIZ & DONNIE, INFORMED THIS RN TO AVOID USING ROXANOL THROUGH BATHHOUSE ATTENDANT TO SEE IF THE PT RESTLESSNESS IMPROVES. WILL RELAY THIS INFO TO BATHHOUSE ATTENDANT. NO OTHER CHANGES AT THIS TIME. WILL CONTINUE TO MONITOR & TREAT PT COMFORT NEEDED.
--- NOTE | 2019-05-06 18:13 | NUR ---
Spiritual Care routine visit: Asked by staff to provide comfort/ education to family. Pt's son was very defensive/guarded. He told me there "Have been too many people in my mom's room and its aggitating my dad." I will remain available.
--- NOTE | 2019-05-06 19:15 | NUR ---
UPDATE ASSUMING CARE OF PT FROM DAYSHIFT RN ANA M. UPDATED ON PATIENT INCREASED AGITATION AND ANXIETY T/O THE DAY, AND DIFFICULTY TO MANAGE SYMPTOMS. FAMILY IS IN ROOM AT THIS TIME, PT APPEARS COMFORTABLE WITH CALM FACE, NO FLAILING OF ARMS/LEGS AT THE MOMENT. LAVENDAR ON PILLOW, CALMING MUSIC PLAYING IN BACKGROUND, LIGHTS DIM. MEDICATED WITH 50 MCG IV FENTANYL, ATROPINE DROPS GIVEN FOR SECRETIONS. WILL STAY ON TOP OF PAIN, ANXIETY, AND SECRETION MEDS FOR PT COMFORT. FAMILY DOES NOT WANT THIS RN TO REPOSITION PT AT THIS TIME.
--- NOTE | 2019-05-06 21:54 | NUR ---
FAMILY HAVING DIFFICULT TIME COPING WITH GURGLING BREATHING FROM EXCESS SECRETIONS. SUCTIONED WITH FAMILY PERMISSION WITH VERY LITTLE EFFECT. ATROPINE DROPS ADMINISTERED Q1H. SCOPOLAMINE PATCH BEHIND R EAR. WHITE NOISE MACHINE IN USE.
--- NOTE | 2019-05-07 00:17 | NUR ---
SERECTIONS HAVE DECREASED, PATIENT IS RESTING COMFORTABLY AT THIS TIME. FAMILY AT BEDSIDE.
--- NOTE | 2019-05-07 02:39 | NUR ---
CC UPDATE PT IS WITH EXCESS SECRETIONS AGAIN, FAMILY CONCERNED. SUCTIONED PT WITH LITTLE RELIEF. PT IS WINCING AND MOANING DURING SUCTIONING, FAMILY REQUESTS RN TO DISCONTINUE SUCTIONING AT THIS TIME. ATROPINE DROPS ADMINISTERED. IV ATIVAN 1MG ADMINISTERED. 2 MG SL HALDOL ADMINISTERED. PT APPEARS SLIGHTLY AGITATED AFTER SUCTIONING BUT RESOLVES QUICKLY. FAMILY AT BEDSIDE.
--- NOTE | 2019-05-07 04:35 | NUR ---
CC UPDATE 1 MG IV ATIVAN AND ATROPINE DROPS GIVEN AT THIS TIME. GURLGING SOUNDS HAVE DECREASED AT THIS TIME. PROVIDED FAMILY WITH EAR PLUGS, THEY WERE APPRECIATIVE OF THIS GESTURE. PT APPEARS COMFORTABLE, RESTING IN BED. FAMILY HAS REFUSED REPOSITIONING THEY DO NOT WANT TO "DISRUPT EBONIE".
--- NOTE | 2019-05-07 06:44 | NUR ---
SHIFT SUMMARY COMFORT CARE STATUS HAS BEEN MAINTAINED TONIGHT. S/SX OF ANXIETY, AGITATION, SECRETIONS CONTROLLED BY ATROPINE DROPS Q1H, 1MG IV ATIVAN Q2H, 2 MG SL HALDOL Q6H, AND 50 MCG IV FENTANYL Q2H. SCOPOLAMINE TO R EAR. PT WITH GURGLING LUNG SOUNDS, APNEIC EPISODES LASTING ROUGHLY 10-20 SECONDS. MOTTLING TO UE. EXCESS FLUID AEB SWELLING. PT IS JAUNDICE. FAMILY AT BEDSIDE, HAVE PROVIDED THERAPEUTIC SUPPORT T/O NIGHT NEEDED. WILL CONT TO MONITOR AND PROVIDE CARE UNTIL PRESUMED BY ONCOMING RN.
--- NOTE | 2019-05-07 06:52 | NUR ---
REPOSITIONING AND PERSONAL CARE WAS ONLY ALLOWED ONCE PER FAMILY.
--- NOTE | 2019-05-07 07:59 | NUR ---
AM ASSESSMENT- PT LYING IN BED WITH EYES CLOSED, PT WITH NOTED SECRETIONS. PRN ATROPINE GIVEN AND SCOPALAMINE IN PLACE. PT WITH EDEMA TO BUE AND BLE. PT APPEARS COMFORTABLE HOWEVER PRN FENTANYL GIVEN FOR COMFORT. FAMILY AT BEDSIDE. PT REPOSITIONED AT THIS TIME. WILL CONT TO MONITOR.
--- NOTE | 2019-05-07 09:59 | NUR ---
Comfort Care Visit: Pt is resting in bed and is non responsive. Family at bedside. Significant secretions noted but Pt appears more confortable. Educated family on secretions as an expected symptom during the dying process. Family requests additional medication for secretions. Instructed family request will be made to hospitalist. Spoke with bedside nurse Cordell and discussed case. Spoke with Dr Quarles and relayed family's request. Will place order for hyoscyamine 0.125mg tab 1 to 2 tabs q4 PRN for secretions per V/O from Dr Quarles. Palliative Care will remain available.
--- NOTE | 2019-05-07 12:16 | NUR ---
F/U visit at 1124 Pt resting in bed and is non responsive. Assisted bedside nurse Cordell with reposition Pt. Significant secretions noted. Discussed case with Cordell and reviewed medications. Palliative Care will remain available.
--- NOTE | 2019-05-07 13:36 | NUR ---
TIME OF [address] CHOWDARY.
--- NOTE | 2019-05-07 14:19 | NUR ---
PT PASSED AT 1329. SPOUSE, SON AND DAUGHTER IN LAW AT BEDSIDE. DR CHOWDARY NOTIFIED. DENIZ FROM PALLIATIVE CARE NOTIFIED WELL. FAMILY REMAINS AT BEDSIDE.
--- NOTE | 2019-05-07 16:17 | NUR ---
POWERGLIDE AND MCGOWAN REMOVED. PT CLEANED. WEDDING REMOVED PER FAMILY REQUEST AND GIVEN TO SPOUSE. AWAITING MORTUARY AT THIS TIME.
--- NOTE | 2019-05-07 16:51 | NUR ---
PT DC'D TO HOME AT 1649. FAMILY AT BEDSIDE UPON LEAVING.
== END 2019-05-07 13:29 | DRG 813 ==
LOC: ER 21:39 → ICUW 21:40 → MEDS 21:40 → ICUE 21:40 → MEDS 05-01 00:50 → ICUW 05-01 20:18 → MEDS 05-02 17:32 → ICUW 05-02 17:52 → MEDS 05-03 15:47 → ICUE 05-04 11:37 → MEDS 05-05 17:59
PROVIDERS: Emergency Medicine; Internal Medicine; Nurse Practitioner Acute Care; ADMIT Internal Medicine
PROC: 30233N1 Transfusion of Nonautologous Red Blood Cells into Peripheral Vein, Percutaneous Approach (ICD-10-PCS; principal; 2019-05-01)
PROC: 30233R1 Transfusion of Nonautologous Platelets into Peripheral Vein, Percutaneous Approach (ICD-10-PCS; 2019-05-01)
DX: D69.6 Thrombocytopenia, unspecified (principal); I50.33 Acute on chronic diastolic (congestive) heart failure; E87.1 Hypo-osmolality and hyponatremia; D62 Acute posthemorrhagic anemia; D56.1 Beta thalassemia; Z66 Do not resuscitate; Z51.5 Encounter for palliative care; B19.20 Unspecified viral hepatitis C without hepatic coma; J43.9 Emphysema, unspecified; G47.33 Obstructive sleep apnea (adult) (pediatric); K62.3 Rectal prolapse; Z98.1 Arthrodesis status; Z95.3 Presence of xenogenic heart valve; F17.210 Nicotine dependence, cigarettes, uncomplicated; R33.9 Retention of urine, unspecified; E86.0 Dehydration; I27.20 Pulmonary hypertension, unspecified; I48.2 Chronic atrial fibrillation; I51.3 Intracardiac thrombosis, not elsewhere classified; R60.1 Generalized edema; K74.3 Primary biliary cirrhosis; K22.70 Barrett's esophagus without dysplasia; M81.0 Age-related osteoporosis without current pathological fracture; I35.0 Nonrheumatic aortic (valve) stenosis; K74.0 Hepatic fibrosis; K59.00 Constipation, unspecified; M79.7 Fibromyalgia; E87.6 Hypokalemia; R41.0 Disorientation, unspecified
CPT/HCPCS: 36415; 36430; 51702; 51798; 70450; 71045; 71260; 74177; 80048; 80053; 80069; 80162; 81001; 82140; 82247; 82248; 82270; 83690; 85014; 85018; 85025; 85027; 85384; 86850; 86900; 86901; 86923; 87086; 93005; 93010; 94640; 94760; 96361; 96365; 96375; 99285-25; A9270; C1751; C1769; C9113; J0282; J1100; J1940; J2060; J2405; J3010; J3480; J7030; J7050; J7060; J9312; P9016; P9035; P9046; P9053; P9059; Q9967